=== PATIENT | female | born 1975 | race Caucasian/White ===

== ENCOUNTER → 2016-05-13 | Outpatient (CLI) | payer OTHER, BC ==
[~2016-05-13] MED LIST: ALBU1AER9 INH; FEXO1TAB46 PO; HYDR-389 PO; HYDR-5688 PO; LEVO200T PO; LITH600C PO; MONT1TAB3 PO; MTR600X PO; NORE5TAB5 PO; OXYC-57 PO; PRM625 PO; SYN175 PO; VNTHFA/IN INH
--- NOTE | 2016-05-13 12:33 | DIAGNOSTIC IMAGING REPORT ---
TWO VIEW CHEST CLINICAL HISTORY: Cough. FINDINGS: PA and lateral chest radiographs are compared to study dated 01/20/2016 and correlated with chest CT dated 03/07/2016. The examination is degraded by large body habitus. The cardiomediastinal silhouette is unremarkable. There is mild chronic elevation of the right hemidiaphragm. The lungs and pleural spaces are clear. There is no pneumothorax. The skeletal structures appear osteopenic. The bony thorax appears intact. Cholecystectomy clips are identified in the right upper quadrant. IMPRESSION: No active disease in the chest. Electronically signed by: Manan Sow M.D. 05/13/2016 12:32 PM Dictated Date/Time: 05/13/2016 12:31 PM
== END | disposition home or self-care (01) ==
LOC: C.RAD1850 12:00
PROVIDERS: ATTEND Family Medicine
DX: R05 Cough (principal)

== ENCOUNTER → 2016-05-31 | Outpatient (CLI) | payer OTHER, BC ==
[2016-05-31 15:56] LABS: THYROID STIMULATING HORMONE 0.058 uIu/ml (0.300-4.500)
== END | disposition home or self-care (01) ==
LOC: C.LAB 14:46
PROVIDERS: ATTEND Urology
DX: Z79.899 Other long term (current) drug therapy (principal); Z51.81 Encounter for therapeutic drug level monitoring

== ENCOUNTER → 2016-07-04 | Outpatient (CLI) | payer OTHER, BC ==
--- NOTE | 2016-07-04 12:23 | DIAGNOSTIC IMAGING REPORT ---
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 DISCUSSION: The bones and joint spaces appear intact. There is no evidence of fracture, dislocation or bony disease. There is no evidence for soft tissue swelling. IMPRESSION: Negative study. Electronically signed by: New Perales M.D. 07/04/2016 12:22 PM Dictated Date/Time: 07/04/2016 12:21 PM
== END | disposition home or self-care (01) ==
LOC: C.RAD1850 11:46
PROVIDERS: ATTEND Internal Medicine
DX: M25.562 Pain in left knee (principal)

== ENCOUNTER → 2016-07-08 | Outpatient (CLI) | payer OTHER, BC ==
--- NOTE | 2016-07-08 14:50 | DIAGNOSTIC IMAGING REPORT ---
ULTRASOUND LEFT POPLITEAL FOSSA CLINICAL HISTORY: Left knee pain. COMPARISON STUDY: Radiographs of the left knee dated 07/04/2016. FINDINGS: Real-time, grayscale, and color Doppler sonography of the left popliteal fossa is performed to assess for the presence of a popliteal cyst. No popliteal cyst is identified. No fluid collection is seen. IMPRESSION: There is no sonographic evidence of popliteal cyst as clinically queried. Electronically signed by: Manan Sow M.D. 07/08/2016 2:48 PM Dictated Date/Time: 07/08/2016 2:47 PM
== END | disposition home or self-care (01) ==
LOC: C.ULTRBC 13:52
PROVIDERS: ATTEND Internal Medicine
DX: M25.562 Pain in left knee (principal)

== ENCOUNTER → 2016-08-15 | Outpatient (CLI) | payer OTHER, BC ==
--- NOTE | 2016-08-15 10:00 | DIAGNOSTIC IMAGING REPORT ---
CT OF THE CHEST WITHOUT IV CONTRAST CLINICAL HISTORY: R91.1 Pulmonary nodule COMPARISON STUDY: 03/07/2016 CT DOSE: 776.59 mGycm TECHNIQUE: CT of the thorax was performed from the thoracic inlet to the lung bases. Images are reviewed in the axial, sagittal, and coronal planes. IV contrast was not administered for this examination. FINDINGS: Thyroid: Imaged portions of the thyroid gland are normal in appearance. Thoracic aorta: The thoracic aorta is normal in course and caliber, noting standard 3 vessel arch anatomy. Heart: The heart is normal in size and configuration, without pericardial effusion. Lungs and pleural spaces: No pleural effusions are visualized. There is a pure groundglass 7 mm left upper lobe pulmonary nodule. Mediastinum: There is no pathologic adenopathy by size criteria. Yocasta: There is no pathologic adenopathy given the limitations of a noncontrast study Axilla: Clear. Upper abdomen: Partially visualized upper abdominal viscera is within normal limits. Skeletal structures: There are no lytic or blastic osseous lesions. IMPRESSION: 1. Stable 7 mm groundglass left upper lobe pulmonary nodule. Two-year follow-up is recommended per Fleischner criteria. Please see below. Please refer to below summary of Fleischner criteria recommendations for follow-up of incidental CT nodules (Courtney Sherman, Guidelines for management of small pulmonary nodules detected on CT scans: A statement from the Fleischner Society, Radiology 237: [phone].) SOLID NODULES Solitary nodule size: <6 mm * low risk patients: no follow-up needed * high risk patients: optional CT at 12 months Solitary nodule size: 6-8 mm * low risk patients: follow-up at 6-12 months, then consider further follow-up at 18-24 months * high risk patients: initial follow-up CT at 6-12 months and then at 18-24 months if no change Solitary nodule size: >8 mm * either low or high risk patients - consider follow-up CT at 3 months, and/or CT-PET, and/or biopsy Multiple nodules size: <6 mm * low risk patients: no routine follow-up * high risk patients: optional CT at 12 months Multiple nodules size: 6-8 mm * low risk patients: follow-up at 3-6 months, then consider further follow-up at 18-24 months * high risk patients: follow-up at 3-6 months, then at 18-24 months if no change Multiple nodules size: >8 mm * low risk patients: follow-up at 3-6 months, then consider further follow-up at 18-24 months * high risk patients: follow-up at 3-6 months, then at 18-24 months if no change Note: newly detected indeterminate nodule in persons 35 years of age or older. * low risk patients: minimal or absent history of smoking and/or other known risk factors * high risk patients: history of smoking or of other known risk factors (e.g. first degree relative with lung cancer, or exposure to asbestos, radon, uranium) * if a nodule up to 8 mm is partly solid or is ground glass further follow-up is required after 24 months to exclude possible slow growing adenocarcinoma (JADA) SUBSOLID NODULES Solitary pure ground-glass nodule * nodule size <6 mm - no CT follow-up required * nodule size >=6 mm - follow-up CT at 6-12 months, then every 2 years until 5 years Solitary part-solid nodule * nodule size <6 mm - no CT follow-up required * nodule size >=6 mm - follow-up CT at 3-6 months. If unchanged, and solid component remains <6 mm, then annual follow-up for 5 years Multiple subsolid nodules * nodule size <6 mm - follow-up CT at 3-6 months, consider further follow-up at 2 and 4 years if stable * nodule size >=6 mm - follow-up CT at 3-6 months, subsequent management based on the most suspicious nodule(s) Electronically signed by: Fabrice Renteria M.D. 08/15/2016 9:59 AM Dictated Date/Time: 08/15/2016 9:54 AM
== END | disposition home or self-care (01) ==
LOC: C.CTS 09:42
PROVIDERS: ATTEND Internal Medicine
DX: R91.1 Solitary pulmonary nodule (principal)

== ENCOUNTER 2016-08-29 10:28 | Emergency (ER) | payer OTHER, BC ==
[~2016-08-29] VITALS: Ht 157.5 cm; Wt 94.8 kg
[~2016-08-29 10:28] MED LIST changes: -HYDR-389 PO; -HYDR-5688 PO; -LEVO200T PO; -LITH600C PO; -MTR600X PO; -NORE5TAB5 PO; -OXYC-57 PO; -PRM625 PO; -SYN175 PO; -VNTHFA/IN INH
[2016-08-29 10:34] VITALS: TEMP 36.8; Ht 157.5 cm; Wt 94.8 kg
[2016-08-29] MEDS ORDERED: LITH600C PO (10:40)
[2016-08-29] MEDS ORDERED: VNTHFA/IN INH (10:40)
[2016-08-29] MEDS ORDERED: SYN175 PO (10:41)
[2016-08-29] MEDS ORDERED: SODIUM CHLORIDE 0.9% 1000ML 1,000 ML IV STA (11:10)
[2016-08-29 11:48] LABS: BASO % 0.3 %; BASO ABS # 0.03 K/uL (0-0.2); COMPLETE YES; EOS % 3.7 %; HEMATOCRIT 42.4 % (37-47); IG% 0.3 %; LYMPH % 20.7 %; LYMPH ABS # 2.12 K/uL (1.2-3.4); MEAN CELL VOLUME 88.9 fL (80-100); MEAN CORPUSCULAR HEMOGLOBIN 28.3 pg (25-34); MEAN CORPUSCULAR HGB CONC 31.8 g/dl (32-36); MEAN PLATELET VOLUME 12.1 fL (7.4-10.4); MONO % 5.3 %; NEUT % 69.7 %; PLATELET COUNT 206 K/uL (130-400); RED BLOOD COUNT 4.77 M/uL (4.2-5.4); WHITE BLOOD COUNT 10.23 K/uL (4.8-10.8)
[2016-08-29] MEDS ORDERED: LEVO200T PO (12:05)
[2016-08-29 12:07] LABS: BUN/CREATININE RATIO 14.8 (10-20); CREATININE 0.86 mg/dl (0.60-1.20); POTASSIUM 3.9 mmol/L (3.5-5.1)
[2016-08-29 12:10] LABS: ALB/GLOB RATIO 1.4 (0.9-2)
[2016-08-29 12:59] LABS: URINE APPEARANCE CLEAR (CLEAR); URINE BILIRUBIN NEG (NEG); URINE EPITHELIAL CELL AUTO 20-30 /lpf (0-5); URINE NITRITE NEG (NEG); URINE SPECIFIC GRAVITY 1.014 (1.000-1.030); UROBILINOGEN NEG (NEG); ZZUR CULT IF INDIC CLEAN CATCH NO
[2016-08-29 13:00] LABS: MANUAL MICROSCOPIC REQUIRED? NO; REVIEW REQ? NO; URINE COLOR DK YELLOW
[2016-08-29 13:16] LABS: CALCIUM 9.9 mg/dl (8.5-10.1)
--- NOTE | 2016-08-29 13:18 | DIAGNOSTIC IMAGING REPORT ---
EXAMINATION: PELVIC ULTRASOUND (transabdominal and endovaginal scanning) CLINICAL HISTORY: heavy vaginal bleeding, pelvic pain COMPARISON STUDY: 07/23/2015 FINDINGS: The uterus measured 4.5 x 4.8 x 6.6 cm.. The endometrial stripe measured 11 mm. There is a small amount of blood/fluid within the lower uterine segment.. The right ovary measured 33 x 21 x 20 mm.. The left ovary measured not visualized. There was no evidence of pathologic free pelvic fluid. IMPRESSION: 1. Small amount of fluid/blood within the lower uterine segment. 11 mm endometrial stripe 2. Nonvisualization of the left ovary Electronically signed by: Fabrice Renteria M.D. 08/29/2016 1:17 PM Dictated Date/Time: 08/29/2016 1:15 PM
[2016-08-29 13:59] LABS: PREG INTERNAL NEGATIVE QC NEG CLEAR BACKGROUND; PREG INTERNAL POSITIVE QC POS CONTROL LINE
[2016-08-29] MEDS ORDERED: PRM625 PO (14:36)
--- NOTE | 2016-08-29 14:38 | EMERGENCY ROOM VISIT NOTE ---
History First contact with patient: 11:01 Chief Complaint: ED VAG BLEEDING Stated Complaint: BLEEDING History of Present Illness The patient is a 41 year old female who presents to the Emergency Room with complaints of heavy vaginal bleeding. The patient states that she has had vaginal bleeding for the past 3 weeks. She reports that she has been on the Depo-Provera shot for the past 9 months. Throughout that time, she has had very little bleeding, just prior to getting the injection each time. She states that one week prior to her most recent injection, she began to have some slight vaginal bleeding. She received her last injection on 08/11/16 and states she has had persistent bleeding since then. She states the bleeding has become heavy over the past 3 days and she has been using more pads pain usual. She has gone through 2 pads in the 2 hours that she has been awake today. She is a smoker and states that that is the reason she is not on oral control pills. She also complains of some pelvic cramping which radiates into the back. She rates her current discomfort a 4/10. She denies any fevers, nausea/ vomiting, urinary symptoms or changes in bowel movements. She denies any COMMUNITY SERVICE OFFICER COORDINATOR history. She denies any history or family history of bleeding or clotting disorders. Review of Systems A complete 10 point review of systems was reviewed with the patient with pertinent positives and negatives as per history of present illness. All else were negative. Past Medical/Surgical History Medical Problems: (1) Bilateral tubal ligation (2) Bipolar disorder (3) section (4) History of - tubal ligation (5) Hypothyroidism (6) Tonsillectomy Surgical Problems: (1) H/O lumbar discectomy (2) S/P cholecystectomy (3) S/P tonsillectomy Family History FH: lung cancer FHx: cancer FHx: heart disease Hypertension Social History Smoking Status: Current Every Day Smoker Alcohol Use: none Drug Use: none Marital Status: Housing Status: lives with family Occupation Status: employed Current/Historical Medications Scheduled Albuterol Hfa (Ventolin Hfa), 2-4 PUFFS INH Q6H Estrogens, Conjugated (Premarin), 1 TAB PO DAILY Fexofenadine Hcl (Destiney), 180 MG PO DAILY Levothyroxine Sodium (Synthroid), 175 MCG PO DAILY [place]ale Carbonate (Rosedale Carbonate), 600 MG PO DAILY Montelukast Sodium (Singulair), 10 MG PO DAILY Allergies Coded Allergies: Penicillins (Verified Allergy, Mild, HIVES, 08/29/16) Physical Exam Vital Signs Date Time Temp Pulse Resp B/P Pulse Ox O2 Delivery O2 Flow Rate FiO2 08/29/16 15:03 78 18 130/82 98 08/29/16 14:01 78 18 130/82 98 Room Air 08/29/16 10:34 36.8 69 18 128/76 99 Room Air Pain Rating (0-10): 2.0 Physical Exam VITALS: Vitals are noted on the nurse's note and reviewed by myself. Vital signs stable. GENERAL: This is a 41-year-old female, in no acute distress, nondiaphoretic, well-developed well-nourished. SKIN: Capillary reflex less than 2 seconds. HEENT: Normocephalic. PERRLA. EOMI. Nares patent. Mucous membranes moist. Neck is supple without nuchal rigidity. HEART: Regular rate and rhythm without murmurs gallops or rubs. LUNGS: Clear to auscultation bilaterally without wheezes, rales or rhonchi. ABDOMEN: Positive bowel sounds x 4. Soft, minimal tenderness of the suprapubic region. No guarding or rebound tenderness. PELVIC: External genitalia unremarkable. There is a moderate amount of blood in the vaginal vault with a clot present. There is no active bleeding from the cervical os. NEURO: Patient was alert and oriented to person place and time. Medical Decision & Procedures ER Provider Diagnostic Interpretation: EXAMINATION: PELVIC ULTRASOUND (transabdominal and endovaginal scanning) CLINICAL HISTORY: heavy vaginal bleeding, pelvic pain COMPARISON STUDY: 07/23/2015 FINDINGS: The uterus measured 4.5 x 4.8 x 6.6 cm.. The endometrial stripe measured 11 mm. There is a small amount of blood/fluid within the lower uterine segment.. The right ovary measured 33 x 21 x 20 mm.. The left ovary measured not visualized. There was no evidence of pathologic free pelvic fluid. IMPRESSION: 1. Small amount of fluid/blood within the lower uterine segment. 11 mm endometrial stripe 2. Nonvisualization of the left ovary Laboratory Results 08/29/16 11:30 Red Blood Count 4.77, Mean Corpuscular Volume 88.9, Mean Corpuscular Hemoglobin 28.3, Mean Corpuscular Hemoglobin Concent 31.8, Mean Platelet Volume 12.1, Neutrophils (%) (Auto) 69.7, Lymphocytes (%) (Auto) 20.7, Monocytes (%) (Auto) 5.3, Eosinophils (%) (Auto) 3.7, Basophils (%) (Auto) 0.3, Neutrophils # (Auto) 7.13, Lymphocytes # (Auto) 2.12, Monocytes # (Auto) 0.54, Eosinophils # (Auto) 0.38, Basophils # (Auto) 0.03 08/29/16 11:30 Test 08/29/16 11:10 08/29/16 11:30 08/29/16 12:35 Urine Test NEG (NEG) White Blood Count 10.23 K/uL (4.8-10.8) Red Blood Count 4.77 M/uL (4.2-5.4) Hemoglobin 13.5 g/dL (12.0-16.0) Hematocrit 42.4 % (37-47) Mean Corpuscular Volume 88.9 fL (80-100) Mean Corpuscular Hemoglobin 28.3 pg (25-34) Mean Corpuscular Hemoglobin Concent 31.8 g/dl (32-36) Platelet Count 206 K/uL (130-400) Mean Platelet Volume 12.1 fL (7.4-10.4) Neutrophils (%) (Auto) 69.7 % Lymphocytes (%) (Auto) 20.7 % Monocytes (%) (Auto) 5.3 % Eosinophils (%) (Auto) 3.7 % Basophils (%) (Auto) 0.3 % Neutrophils # (Auto) 7.13 K/uL (1.4-6.5) Lymphocytes # (Auto) 2.12 K/uL (1.2-3.4) Monocytes # (Auto) 0.54 K/uL (0.11-0.59) Eosinophils # (Auto) 0.38 K/uL (0-0.5) Basophils # (Auto) 0.03 K/uL (0-0.2) RDW Standard Deviation 47.4 fL (36.4-46.3) RDW Coefficient of Variation 14.6 % (11.5-14.5) Immature Granulocyte % (Auto) 0.3 % Immature Granulocyte # (Auto) 0.03 K/uL (0.00-0.02) Anion Gap 6.0 mmol/L (3-11) Est Creatinine Clear Calc Drug Dose 92.4 ml/min Estimated GFR () 97.3 Estimated GFR (Non- 83.9 BUN/Creatinine Ratio 14.8 (10-20) Calcium Level 9.9 mg/dl (8.5-10.1) Total Bilirubin 0.5 mg/dl (0.2-1) Aspartate Amino Transf (AST/SGOT) 12 U/L (15-37) Alanine Aminotransferase (ALT/SGPT) 25 U/L (12-78) Alkaline Phosphatase 63 U/L (45-117) Total Protein 7.2 gm/dl (6.4-8.2) Albumin 4.2 gm/dl (3.4-5.0) Globulin 3.0 gm/dl (2.5-4.0) Albumin/Globulin Ratio 1.4 (0.9-2) Urine Color DK YELLOW Urine Appearance CLEAR (CLEAR) Urine pH 6.0 (4.5-7.5) Urine Specific [place] 1.014 (1.000-1.030) Urine Protein NEG (NEG) Urine Glucose (UA) NEG (NEG) Urine Ketones NEG (NEG) Urine Occult Blood 3+ (NEG) Urine Nitrite NEG (NEG) Urine Bilirubin NEG (NEG) Urine Urobilinogen NEG (NEG) Urine Leukocyte Esterase TRACE (NEG) Urine WBC (Auto) 1-5 /hpf (0-5) Urine RBC (Auto) >30 /hpf (0-4) Urine Hyaline Casts (Auto) 1-5 /lpf (0-5) Urine Epithelial Cells (Auto) 20-30 /lpf (0-5) Urine Bacteria (Auto) NEG (NEG) Medications Administered Medications (Trade) Dose Ordered Sig/Rafael Route Start Time Stop Time Status Last Admin Dose Admin Sodium Chloride (Nss 1000ml) 1,000 ml @ 999 mls/hr Q1H1M STAT IV 08/29/16 11:10 08/29/16 12:10 DC 08/29/16 11:42 999 MLS/HR ED Course The patient was evaluated as above. Labs were drawn and IV access was obtained. Patient was medicated with 1 L normal saline solution. Pelvic ultrasound was performed and read by radiology as above. Patient was reevaluated and findings were discussed. Pelvic exam was performed at this time. Case was discussed with Dr. Pérez, [facility] PIGGYBACK CLERK. She recommended placing the patient on Premarin. Discharge instructions were reviewed with the patient. The patient verbalized understanding of my assessment and treatment plan and was discharged home in good condition. Medical Decision Differential diagnosis includes anemia, abnormal uterine bleeding, structural abnormality, ectopic , bleeding dyscrasia, among others. The patient is a 41-year-old female who presents today complaining of heavy vaginal bleeding. Labs revealed no anemia or leukocytosis. Urinalysis was not suggestive of infection. Urine was negative. Pelvic ultrasound did reveal an endometrial stripe of 11 mm but was otherwise unremarkable. Pelvic exam showed blood within the vaginal vault. Case was discussed with the on- call provider for PIGGYBACK CLERK, Dr. Pérez. She recommended placing the patient on a 3 week course of low-dose Premarin and having the patient follow-up in the office in 6 weeks. The patient was informed that there is a small risk of developing a blood clot while taking this medication, especially given her daily smoking. She was given DVT precautions and will return here if she develops any of these symptoms. Based on the patient's presentation and work up, I feel the patient is stable for outpatient treatment. The patient was educated to return to the emergency department for any worsening of their current condition or new/concerning symptoms. She will follow up with PIGGYBACK CLERK in 6 weeks and her primary care provider. Impression Primary Impression: Abnormal uterine bleeding Departure Information Dispostion Home / Self-Care Condition GOOD Prescriptions Estrogens, Conjugated (Premarin) 0.625 Mg Tab 1 TAB PO DAILY for 21 Days, #21 TAB Prov: Jessica Tucker PA-C 08/29/16 Referrals Pro,Toribio Goldstein M.D. (PCP) [facility] Additional Instructions You have been prescribed Premarin, 1 tablet daily for the next 3 weeks. This showed a slow your vaginal bleeding, but may not stop it. When he finished this medication, you will likely have vaginal bleeding for 7-10 days, then your bleeding should stop. There is a risk of blood clots while on this medication. If you develop pain/ swelling in your leg, chest pain, or shortness of breath, you should return to the emergency Department immediately. Call [facility] PIGGYBACK CLERK to schedule a follow-up appointment in 6 weeks. Return to the emergency room with any worsening or new/concerning symptoms.
[2016-08-29 15:03] VITALS: BP 130/82; PULSE 78; O2SAT 98
[2016-12-14] MEDS ORDERED: NORE5TAB5 PO (13:53)
[2017-01-02] MEDS ORDERED: MTR600X PO (10:12)
[2017-01-02] MEDS ORDERED: OXYC-57 PO (10:12)
[2017-01-02] MEDS ORDERED: HYDR-5688 PO (17:37)
== END 2016-08-29 14:55 | disposition home or self-care (01) ==
LOC: C.EDB 10:30 → C.EDA 14:55
DX: N93.9 Abnormal uterine and vaginal bleeding, unspecified (principal); E03.9 Hypothyroidism, unspecified; F31.9 Bipolar disorder, unspecified; Z79.899 Other long term (current) drug therapy; Z82.49 Family history of ischemic heart disease and other diseases of the circulatory system; Z83.6 Family history of other diseases of the respiratory system; F17.200 Nicotine dependence, unspecified, uncomplicated

== ENCOUNTER → 2016-10-19 | Outpatient (CLI) | payer BC, OTHER ==
[~2016-10-19] MED LIST changes: -ALBU1AER9 INH; +HYDR-389 PO; +HYDR-5688 PO; +LITH600C PO; +MTR600X PO; +NORE5TAB5 PO; +OXYC-57 PO; +SYN175 PO; +VNTHFA/IN INH
== END | disposition home or self-care (01) ==
LOC: C.PATHSPEC 17:54
PROVIDERS: ATTEND Obstetrics & Gynecology
DX: N93.9 Abnormal uterine and vaginal bleeding, unspecified (principal)

== ENCOUNTER → 2016-10-19 | Outpatient (CLI) | payer BC, OTHER | END | disposition home or self-care (01) | LOC: C.PAPS 10:35 | PROVIDERS: ATTEND Obstetrics & Gynecology | DX: N93.9 Abnormal uterine and vaginal bleeding, unspecified (principal) ==

== ENCOUNTER 2016-12-07 10:18 | Emergency (ER) | payer BC ==
[~2016-12-07] VITALS: Ht 157.5 cm; Wt 113.9 kg
[~2016-12-07 10:18] MED LIST changes: -HYDR-389 PO; -HYDR-5688 PO; -MTR600X PO; -NORE5TAB5 PO; -OXYC-57 PO
[2016-12-07 10:21] VITALS: TEMP 36.7; Ht 157.5 cm; Wt 113.9 kg
[2016-12-07] MEDS ORDERED: HYDR-389 PO (10:55)
[2016-12-07] MEDS ORDERED: ONDANSETRON INJ 2 MG/ML 2 ML VIAL IV STA (11:01)
[2016-12-07] MEDS ORDERED: SODIUM CHLORIDE 0.9% 1000ML 1,000 ML IV STA (11:01)
[2016-12-07 11:10] LABS: BASO % 0.3 %; BASO ABS # 0.04 K/uL (0-0.2); COMPLETE YES; EOS % 4.5 %; HEMATOCRIT 37.5 % (37-47); IG% 0.6 %; LYMPH ABS # 2.69 K/uL (1.2-3.4); MEAN CELL VOLUME 87.4 fL (80-100); MEAN CORPUSCULAR HEMOGLOBIN 29.1 pg (25-34); MEAN CORPUSCULAR HGB CONC 33.3 g/dl (32-36); MEAN PLATELET VOLUME 11.4 fL (7.4-10.4); MONO % 5.3 %; NEUT % 67.3 %; PLATELET COUNT 224 K/uL (130-400); RED BLOOD COUNT 4.29 M/uL (4.2-5.4); WHITE BLOOD COUNT 12.25 K/uL (4.8-10.8)
[2016-12-07 11:31] LABS: ALT/SGPT 21 U/L (12-78); BLOOD UREA NITROGEN 8 mg/dl (7-18); BUN/CREATININE RATIO 9.2 (10-20); CALCIUM 9.4 mg/dl (8.5-10.1); CARBON DIOXIDE 25 mmol/L (21-32); CHLORIDE 110 mmol/L (98-107); CREATININE 0.83 mg/dl (0.60-1.20); GLUCOSE 105 mg/dl (70-99); SODIUM 139 mmol/L (136-145)
[2016-12-07 11:34] LABS: ALKALINE PHOSPHATASE 71 U/L (45-117); AST/SGOT 13 U/L (15-37)
[2016-12-07 12:10] LABS: URINE APPEARANCE CLEAR (CLEAR); URINE BILIRUBIN NEG (NEG); URINE COLOR YELLOW; URINE NITRITE NEG (NEG); URINE PH 5.5 (4.5-7.5); URINE SPECIFIC GRAVITY 1.012 (1.000-1.030); UROBILINOGEN NEG (NEG); ZZUR CULT IF INDIC CLEAN CATCH NO
[2016-12-07 12:17] LABS: MANUAL MICROSCOPIC REQUIRED? NO; REVIEW REQ? NO
--- NOTE | 2016-12-07 12:59 | EMERGENCY ROOM VISIT NOTE ---
History Report prepared by Jesse: Sherrie Pineda Under the Supervision of: Dr. Hayes Darby D.O. First contact with patient: 10:47 Chief Complaint: ED VAG BLEEDING Stated Complaint: HEAVY BLEEDING History of Present Illness The patient is a 41 year old female who presents to the Emergency Room with complaints of constant vaginal bleeding for the past 4 months that became worse today. She states that she is passing golf ball-sized clots today. Standing up causes her bleeding to intensify. Typically she has been going through one pad every 3-4 hours, but today she is changing her pad every other hour. The patient states that today she is feeling lightheaded and dizzy. She called her ob-sprayer hand office and was advised to come to the ED for further evaluation. She was last seen in their office at the end of October. She has a hysterectomy scheduled for 01/02/2017. The patient denies any chance of . Patient has no other complaints at this time including chest pain, shortness breath, nausea vomiting or diarrhea. Source of History: patient Onset: 4 months ago Position: other (vagina) Symptom Intensity: moderate Quality: other (bleeding) Timing: worsening Modifying Factors (Worsening): other (standing up) Associated Symptoms: + nausea Note: Pt is lightheaded and dizzy. Review of Systems See HPI for pertinent positives & negatives. A total of 10 systems reviewed and were otherwise negative. Past Medical & Surgical Medical Problems: (1) Bilateral tubal ligation (2) Bipolar disorder (3) section (4) History of - tubal ligation (5) Hypothyroidism (6) Tonsillectomy Surgical Problems: (1) H/O lumbar discectomy (2) S/P cholecystectomy (3) S/P tonsillectomy Family History FH: lung cancer FHx: cancer FHx: heart disease Hypertension Social History Smoking Status: Current Every Day Smoker Alcohol Use: none Drug Use: none Marital Status: Housing Status: lives with family Occupation Status: employed Current/Historical Medications Scheduled Albuterol Hfa (Ventolin Hfa), 2-4 PUFFS INH Q6H Fexofenadine Hcl (Destiney), 180 MG PO DAILY Levothyroxine Sodium (Synthroid), 175 MCG PO DAILY Sneads Carbonate (Sneads Carbonate), 600 MG PO BID Montelukast Sodium (Singulair), 10 MG PO DAILY Scheduled PRN Hydroxyzine Hcl (Atarax), 10 MG PO QID PRN for Anxiety and/or Sedation Allergies Coded Allergies: Penicillins (Verified Allergy, Mild, HIVES, 12/07/16) Physical Exam Vital Signs Date Time Temp Pulse Resp B/P (MAP) Pulse Ox O2 Delivery O2 Flow Rate FiO2 12/07/16 11:41 93 18 117/102 97 Room Air 12/07/16 10:21 36.7 83 18 164/108 96 Room Air Physical Exam GENERAL: alert, sitting up in bed, disheveled appearing, well nourished, no distress, non-toxic EYE EXAM: normal conjunctiva OROPHARYNX: no exudate, no erythema, lips, buccal mucosa, and tongue normal and mucous membranes are moist NECK: supple, no nuchal rigidity, no adenopathy, non-tender LUNGS: Clear to auscultation. Normal chest wall mechanics HEART: no murmurs, S1 normal and S2 normal ABDOMEN: abdomen soft, non-tender, normo-active bowel sounds, no masses, no rebound or guarding. BACK: Back is symmetrical on inspection and there is no deformity, no midline tenderness, no CVA tenderness. : Normal external genitalia, small amount of blood in the vaginal vault, unable to visual cervix. SKIN: no rashes and no bruising UPPER EXTREMITIES: upper extremities are grossly normal. LOWER EXTREMITIES: No pitting edema. NEURO EXAM: Normal sensorium, cranial nerves II-XII grossly intact, normal speech, no gross weakness of arms, no gross weakness of legs. Medical Decision & Procedures ER Provider Diagnostic Interpretation: Pelvic US reviewed from 08/29/2016 showed a large endometrial stripe. Laboratory Results 12/07/16 10:50 Red Blood Count 4.29, Mean Corpuscular Volume 87.4, Mean Corpuscular Hemoglobin 29.1, Mean Corpuscular Hemoglobin Concent 33.3, Mean Platelet Volume 11.4, Neutrophils (%) (Auto) 67.3, Lymphocytes (%) (Auto) 22.0, Monocytes (%) (Auto) 5.3, Eosinophils (%) (Auto) 4.5, Basophils (%) (Auto) 0.3, Neutrophils # (Auto) 8.25, Lymphocytes # (Auto) 2.69, Monocytes # (Auto) 0.65, Eosinophils # (Auto) 0.55, Basophils # (Auto) 0.04 8/23/17 10:50 Test 12/07/16 10:50 12/07/16 11:01 12/07/16 11:18 White Blood Count 12.25 K/uL (4.8-10.8) Red Blood Count 4.29 M/uL (4.2-5.4) Hemoglobin 12.5 g/dL (12.0-16.0) Hematocrit 37.5 % (37-47) Mean Corpuscular Volume 87.4 fL (80-100) Mean Corpuscular Hemoglobin 29.1 pg (25-34) Mean Corpuscular Hemoglobin Concent 33.3 g/dl (32-36) Platelet Count 224 K/uL (130-400) Mean Platelet Volume 11.4 fL (7.4-10.4) Neutrophils (%) (Auto) 67.3 % Lymphocytes (%) (Auto) 22.0 % Monocytes (%) (Auto) 5.3 % Eosinophils (%) (Auto) 4.5 % Basophils (%) (Auto) 0.3 % Neutrophils # (Auto) 8.25 K/uL (1.4-6.5) Lymphocytes # (Auto) 2.69 K/uL (1.2-3.4) Monocytes # (Auto) 0.65 K/uL (0.11-0.59) Eosinophils # (Auto) 0.55 K/uL (0-0.5) Basophils # (Auto) 0.04 K/uL (0-0.2) RDW Standard Deviation 44.8 fL (36.4-46.3) RDW Coefficient of Variation 14.0 % (11.5-14.5) Immature Granulocyte % (Auto) 0.6 % Immature Granulocyte # (Auto) 0.07 K/uL (0.00-0.02) Anion Gap 4.0 mmol/L (3-11) Est Creatinine Clear Calc Drug Dose 106.5 ml/min Estimated GFR () 101.5 Estimated GFR (Non- 87.6 BUN/Creatinine Ratio 9.2 (10-20) Calcium Level 9.4 mg/dl (8.5-10.1) Total Bilirubin 0.2 mg/dl (0.2-1) Direct Bilirubin < 0.1 mg/dl (0-0.2) Aspartate Amino Transf (AST/SGOT) 13 U/L (15-37) Alanine Aminotransferase (ALT/SGPT) 21 U/L (12-78) Alkaline Phosphatase 71 U/L (45-117) Total Protein 6.9 gm/dl (6.4-8.2) Albumin 3.6 gm/dl (3.4-5.0) Lipase 123 U/L (73-393) Urine Test NEG (NEG) Urine Color YELLOW Urine Appearance CLEAR (CLEAR) Urine pH 5.5 (4.5-7.5) Urine Specific [place] 1.012 (1.000-1.030) Urine Protein NEG (NEG) Urine Glucose (UA) NEG (NEG) Urine Ketones NEG (NEG) Urine Occult Blood 3+ (NEG) Urine Nitrite NEG (NEG) Urine Bilirubin NEG (NEG) Urine Urobilinogen NEG (NEG) Urine Leukocyte Esterase TRACE (NEG) Urine WBC (Auto) 1-5 /hpf (0-5) Urine RBC (Auto) 5-10 /hpf (0-4) Urine Hyaline Casts (Auto) 0 /lpf (0-5) Urine Epithelial Cells (Auto) 10-20 /lpf (0-5) Urine Bacteria (Auto) NEG (NEG) Laboratory results per my review. Medications Administered Medications (Trade) Dose Ordered Sig/Rafael Route Start Time Stop Time Status Last Admin Dose Admin Sodium Chloride 1,000 ml @ 999 mls/hr Q1H1M STAT IV 12/07/16 11:01 12/07/16 12:20 DC 12/07/16 12:00 999 MLS/HR Ondansetron HCl (Zofran Inj) 4 mg NOW STAT IV 12/07/16 11:01 12/07/16 11:02 DC 12/07/16 12:01 4 MG ED Course ED COURSE: Vital signs were reviewed and showed hypertension. The patients medical record was reviewed The above diagnostic studies were performed and reviewed. ED treatments and interventions as stated above. 1047: The patient was evaluated in room B6. A complete history and physical examination was performed. 1101: Zofran 4 mg IV, NSS 1000 ml @ 999 mls/hr IV 1131: At this time I performed a pelvic examination. Please see the physical examination for my findings. 1220: I spoke with Dr. Monroy of ob-sprayer hand. We discussed the patient's case. She agrees with the treatment plan and recommends follow-up as an outpatient. 1223: Upon reevaluation, the patient is feeling better. I discussed my findings with the patient and she understands and agrees with the treatment plan. Based on the patients age, coexisting illnesses, exam and lab findings the decision to treat as an outpatient was made. The patient remained stable while under my care. The patient appeared well at the time of discharge. Medical Decision Differential diagnoses includes but is not limited to gastritis, peptic ulcer disease, GERD, gallbladder disease, pancreatitis, small bowel obstruction, acute coronary syndrome, pericarditis, ischemic bowel, irritable bowel disease, irritable bowel syndrome, appendicitis, diverticulitis, malignancy, hernia, urinary tract infection, torsion, /ectopic , perforation, trauma, infectious. Patient is a 41-year-old female who presents the ER for vaginal bleeding which has been present for the past 4 months. She is currently following with [facility] gynecology and has a hysterectomy scheduled for early December. Patient has no other complaints at this time. She notes that she is going through a pad every other hour. On exam she has scant vaginal bleeding which was cleared with 2 Q-tips. Unable to visualize cervix. She has of saline no pain on exam. CBC shows a mild leukocytosis of 12,000. Hemoglobin stable at 12.5. BMP along with bilirubin, LFTs and lipase was unremarkable. UA shows blood which I favor secondary to vaginal bleeding. No other signs of infection. was negative. Patient declined pelvic ultrasound. Discussed case with Dr. Monroy and she agreed with the treatment plan and will follow the patient up in the office and possibly as prescribed and progesterone if she has already had a previous biopsy. Patient is unable to recall her surgeon at this time. Discussed with Pt concerning signs and symptoms to watch out for. Pt was instructed to follow up with their PCP and discussed with the patient their option to return to the ED at anytime for persistent or worsening symptoms. The appropriate anticipatory guidance and out-patient management, including indications for return to the emergency department, were explained at length to the patient and understood. Medication Reconcilliation Current Medication List: was personally reviewed by me Blood Pressure Screening Patient's blood pressure: Elevated blood pressure Blood pressure disposition: Elevated BP felt to be situational Consults Time Called: 1215 Consulting Physician: Dr. Monroy Returned Call: [address] Monroy of ob-sprayer hand. We discussed the patient's case. She agrees with the treatment plan and recommends follow-up as an outpatient. Impression Primary Impression: Dysfunctional uterine bleeding Scribe Attestation The scribe's documentation has been prepared under my direction and personally reviewed by me in its entirety. I confirm that the note above accurately reflects all work, treatment, procedures, and medical decision making performed by me. Departure Information Dispostion Home / Self-Care Referrals Toribio Warner M.D. (PCP) Forms HOME CARE DOCUMENTATION FORM, IMPORTANT VISIT INFORMATION, WORK / SCHOOL INSTRUCTIONS Patient Instructions ED Bleed Irregular Vaginal, My [facility] Additional Instructions Please follow up with your primary care doctor or if you are a student, [facility] with in the next 24 hours. Any worsening of your symptoms, please return to the ED immediately. This includes any fevers greater than 100.4, worsening pain, worsening bleeding, going through more the 1 pad an hour, new vaginal discharge, persistent nausea, vomiting, unable to eat or drink , or any other concerning signs or symptoms from your standpoint.
[2016-12-07 13:01] VITALS: BP 116/78; PULSE 81; O2SAT 98
[2016-12-14] MEDS ORDERED: NORE5TAB5 PO (13:53)
[2017-01-02] MEDS ORDERED: OXYC-57 PO (10:12)
[2017-01-02] MEDS ORDERED: MTR600X PO (10:12)
[2017-01-02] MEDS ORDERED: HYDR-5688 PO (17:37)
== END 2016-12-07 13:01 | disposition home or self-care (01) ==
LOC: C.EDB 10:20
DX: N93.8 Other specified abnormal uterine and vaginal bleeding (principal); R42 Dizziness and giddiness; F31.9 Bipolar disorder, unspecified; E03.9 Hypothyroidism, unspecified; F17.200 Nicotine dependence, unspecified, uncomplicated; Z98.51 Tubal ligation status; Z82.49 Family history of ischemic heart disease and other diseases of the circulatory system; Z80.1 Family history of malignant neoplasm of trachea, bronchus and lung

== ENCOUNTER 2017-01-02 06:05 | Observation (INO) | payer BC, OTHER ==
[2016-12-14 13:38] VITALS: BMI 46.0
--- NOTE | 2016-12-14 14:18 | PAT Medication Instructions ---
Service Date Dec 14, 2016. Current Home Medication List Albuterol Hfa (Ventolin Hfa), 2-4 PUFFS INH Q6H Fexofenadine Hcl (Destiney), 180 MG PO QAM Hydroxyzine Hcl (Atarax), 10 MG PO QID PRN for Anxiety and/or Sedation Levothyroxine Sodium (Synthroid), 175 MCG PO QAM [place] Carbonate (Valmeyer Carbonate), 600 MG PO BID Montelukast Sodium (Singulair), 10 MG PO QAM Norethindrone (Aygestin), 5 MG PO BID Medication Instructions For Your Scheduled Surgery -Instructions t be given by surgeon Norethindrone (Aygestin), 5 MG PO BID - Hold the following medications the morning of surgery: Montelukast Sodium (Singulair), 10 MG PO QAM Fexofenadine Hcl (Destiney), 180 MG PO QAM - Take the following medications the morning of surgery with a sip of water: Albuterol Hfa (Ventolin Hfa), 2-4 PUFFS INH Q6H (use if needed) (BRING WITH YOU THE MORNING OF THE SURGERY) Hydroxyzine Hcl (Atarax), 10 MG PO QID PRN for Anxiety and/or Sedation (if needed) [place]yer Carbonate (Valmeyer Carbonate), 600 MG PO BID Levothyroxine Sodium (Synthroid), 175 MCG PO QAM - Take the following medications as scheduled the night before surgery: Albuterol Hfa (Ventolin Hfa), 2-4 PUFFS INH Q6H (if needed) Hydroxyzine Hcl (Atarax), 10 MG PO QID PRN for Anxiety and/or Sedation (if needed) Valmeyer Carbonate (Valmeyer Carbonate), 600 MG PO BID If you have any questions please call us at [phone] or [phone] or [phone]
[2016-12-14 15:03] LABS: BASO % 0.3 %; BASO ABS # 0.04 K/uL (0-0.2); COMPLETE YES; EOS % 4.8 %; HEMATOCRIT 35.3 % (37-47); IG% 0.3 %; LYMPH % 24.6 %; LYMPH ABS # 2.91 K/uL (1.2-3.4); MEAN CELL VOLUME 88.7 fL (80-100); MEAN CORPUSCULAR HEMOGLOBIN 28.4 pg (25-34); MEAN PLATELET VOLUME 11.8 fL (7.4-10.4); MONO % 5.4 %; NEUT % 64.6 %; PLATELET COUNT 224 K/uL (130-400); RED BLOOD COUNT 3.98 M/uL (4.2-5.4); WHITE BLOOD COUNT 11.82 K/uL (4.8-10.8)
[2017-01-02] VITALS (9 sets, daily range): BP systolic 97–129; BP diastolic 63–94; PULSE 62–74; TEMP 36.5–37; O2SAT 94–98; Ht 157.5 cm; Wt 115.2 kg
[~2017-01-02] VITALS: Ht 157.5 cm; Wt 115.2 kg
[~2017-01-02 06:05] MED LIST changes: +CEFAZOLIN 3000 MG/65 ML D5W IV SCH; +CIPROFLOXACIN 400MG / 200ML D5W IV SCH; +HYDR-389 PO; +LACTATED RINGER'S 1000ML 1,000 ML IV SCH; +METRONIDAZOLE / NSS 500 MG in PREMIXED NSS 100 ML IV SCH; +NORE5TAB5 PO
[2017-01-02] MEDS ORDERED: ROCURONIUM BROMIDE 10 MG/ML 5 ML VIAL IV ONE (06:44)
[2017-01-02] MEDS ORDERED: LIDOCAINE HCL 2% 2 ML VIAL (20MG/ML) ONE (06:44)
[2017-01-02] MEDS ORDERED: PROPOFOL IV EMULSION 10 MG/ML 20 ML VIAL IV ONE (06:44)
[2017-01-02] MEDS ORDERED: MIDAZOLAM HCL 1 MG/ML 2ML VIAL ONE (06:44)
[2017-01-02] MEDS ORDERED: FENTANYL CITRATE INJ 50 MCG/1 ML 2 ML VIAL ONE ×3 (06:44→09:40)
[2017-01-02] MEDS ORDERED: BUPIVACAINE 0.5 % 5 MG/1 ML MPF 30ML VIAL ONE (06:53)
[2017-01-02] MEDS ORDERED: METHYLENE BLUE 0.5% 10 ML VIAL ONE (06:53)
--- NOTE | 2017-01-02 07:03 | History & Physical Bridge Note ---
H&P Re-Evaluation Bridge Note: I have examined the patient, reviewed the History & Physical and in the interval since the performance of the History & Physical I have noted the following changes of clinical significance: No changes noted
[2017-01-02 08:23] LABS: BASO % 0.3 %; BASO ABS # 0.03 K/uL (0-0.2); COMPLETE YES; EOS % 5.6 %; HEMATOCRIT 34.6 % (37-47); IG% 0.3 %; LYMPH % 21.1 %; LYMPH ABS # 2.35 K/uL (1.2-3.4); MEAN CELL VOLUME 88.7 fL (80-100); MEAN CORPUSCULAR HEMOGLOBIN 28.2 pg (25-34); MEAN CORPUSCULAR HGB CONC 31.8 g/dl (32-36); MEAN PLATELET VOLUME 11.5 fL (7.4-10.4); MONO % 6.9 %; NEUT % 65.8 %; PLATELET COUNT 211 K/uL (130-400); WHITE BLOOD COUNT 11.16 K/uL (4.8-10.8)
[2017-01-02] MEDS ORDERED: NEOSTIGMINE METHYLSULFATE 5 MG/5 ML SYR ONE (08:32)
[2017-01-02] MEDS ORDERED: ONDANSETRON INJ 2 MG/ML 2 ML VIAL ONE ×2 (08:32→09:55)
[2017-01-02] MEDS ORDERED: DEXAMETHASONE SOD INJ 4 MG/ML VIAL ONE (08:32)
[2017-01-02] MEDS ORDERED: GLYCOPYRROLATE INJ 0.2 MG/ML VIAL ONE (08:32)
[2017-01-02] MEDS ORDERED: EpHEDrine SULFATE INJ 50 MG/ML AMP IV PRN ×2 (09:45)
[2017-01-02] MEDS ORDERED: MEPERIDINE HCL 25 MG/ML CARP IV PRN ×2 (09:45)
[2017-01-02] MEDS ORDERED: HYDROmorphone INJ 1 MG/ML SYR IV PRN ×2 (09:45)
[2017-01-02] MEDS ORDERED: ATROPINE SULFATE 0.1 MG/ML 5ML SYR IV PRN ×2 (09:45)
[2017-01-02] MEDS ORDERED: LABETALOL HCL IV 5 MG/ML 20ML IV PRN ×2 (09:45)
[2017-01-02] MEDS ORDERED: FENTANYL CITRATE INJ 50 MCG/1 ML 2 ML VIAL IV PRN ×2 (09:45)
[2017-01-02] MEDS ORDERED: ONDANSETRON INJ 2 MG/ML 2 ML VIAL IV PRN ×3 (09:45→10:15)
[2017-01-02] MEDS ORDERED: TISSEEL FIBRIN SEALANT 4ML TOP ONE (09:49)
[2017-01-02] MEDS ORDERED: LACTATED RINGER'S 1000ML 1,000 ML IV SCH (10:02)
--- NOTE | 2017-01-02 10:03 | [facility] Post Operative Brief Note ---
Immediate Operative Summary Operative Date Jan 02, 2017. Pre-Operative Diagnosis Menorrhagia Post-Operative Diagnosis Same as preop Procedure(s) Performed Robot-Assisted Total Laparoscopic Hysterectomy Bilateral Salpingectomy, Lysis of Adhesions; Cystoscopy Surgeon Dr. Jason Log Sorting Supervisor Surgeon(s) None Estimated Blood Loss 50 ml Findings Dense adhesions Specimens A. Cervix, Uterus, Bilateral Fallopain Tubes Drains Beebe Anesthesia General Complication(s) None Disposition Recovery Room / PACU
--- NOTE | 2017-01-02 10:04 | Discharge Instructions ---
Discharge Instructions Date of Service Jan 02, 2017. Admission Reason for Admission: Abnormal Uterine Bleeding, Menorrhagia Discharge Discharge Diagnosis / Problem: Menorrhagia Discharge Goals Goal(s): Routine recovery after surgery Activity Recommendations Activity Limitations: per Instructions/Follow-up section . Instructions / Follow-Up Instructions / Follow-Up POST OPERATIVE: BOWEL FUNCTION/MEDICATIONS: 1. Constipation pain and discomfort are the most common complaints 5-7 days after surgery. Points 2-6 address the things that can help. 2. Chewing gum can help stimulate the gut and help improve digestion and motility. 3. Milk of Magnesia 1-2 times per day until return of bowel function. 4. Colace is a stool softener that helps. Taking this 2-3 times per day until bowel function returns to normal is highly recommended. 5. Dulcolax is a laxative that may be used if several days have passed without a bowel movement. Alternatively Miralax may be used daily instead. 6. Drink plenty of fluids as this will also reduce constipation. 7. Narcotic pain medications will be prescribed by your physician. They are safe to use and we encourage you to use them. If you are not allergic, ibuprofen will also be prescribed. Many patients will be able to transition off of the narcotic medications to ibuprofen by postoperative day 3. ACTIVITY RECOMMENDATIONS: 1. Get plenty of rest and listen to your body. If you are tired, take a nap. 2. You may shower, but do not take a tub bath until you see your doctor at the 2 week post operative visit. 3. Absolutely NO intercourse and nothing in the vagina until you are examined by your doctor at the 6 week visit. At that visit it will be determined when such activities can be resumed. This can range from 6-12 weeks after your surgery depending on healing time. 4. The main physical activity in the first week should be walking. By the second week you can slowly increase activity. There are no limits on walking up and down stairs. 5. Do not lift more than 5-10 lbs for 4 weeks. Remember the "one-handed rule", i.e. if you can lift something with only one hand it's likely okay. 6. Minimize c web developer like vacuuming and exercising for 4 weeks. "Overdoing it" can lead to incisions not healing, pain and vaginal bleeding , so again, listen to your body. 7. Driving can be resumed when you feel able. Do not drive within 24 hours of taking a narcotic medication. EXPECTATIONS: 1. Vaginal spotting, bleeding and discharge are common after surgery. There may even be an odor to the discharge which is often related to sutures used in the vagina. If you experience heavy vaginal bleeding, call the office number day or night [phone]. 2. Bladder discomfort is common after surgery from the catheter. This usually resolves in 1-2 weeks. 3. By the end of the 3rd or 4th week you should be feeling much better. It may take up to 6 weeks for your energy levels to return to normal. 4. Narcotic medications have side effects such as: dizziness, headache, nausea and/or vomiting. If you suspect your pain medication is causing problems, call our office and we may be able to prescribe an alternate medication. 5. The skin incisions are often covered with a liquid bandage. This will gradually peel off over time. CALL THE OFFICE IF YOU HAVE ANY OF THE FOLLOWIN. Temperature of 101 degrees or higher. 2. Severe abdominal or pelvic pain not relieved by pain medication. 3. Persistent nausea or vomiting. 4. Increased pain with urination or difficulty urinating. 5. Bright red bleeding that soaks more than 1 pad per hour. CONTACT PHONE NUMBERS: Main Office: [phone] Surgical Nurse: [phone] extension [phone] Avoid all tobacco products. If you need help to stop smoking, call [place]'s FREE QUITLINE at . This is a free call. Current Hospital Diet Patient's current hospital diet: Discharge Diet Recommended Diet: Regular Diet Procedures Procedures Performed: Robot-Assisted Total Laparoscopic Hysterectomy Bilateral Salpingectomy, Lysis of Adhesions; Cystoscopy Pending Studies Studies pending at discharge: no Medical Emergencies . Who to Call and When: Medical Emergencies: If at any time you feel your situation is an emergency, please call 911 immediately. . Non-Emergent Contact Non-Emergency issues call your: Compounding Pharmacy Technician . . "Provider Documentation" section prepared by Hemanth Jason. . VTE Core Measure Inpt VTE Proph given/why not?: Joe Villavicencio, SNOW's
[2017-01-02] MEDS ORDERED: MTR600X PO (10:12)
[2017-01-02] MEDS ORDERED: OXYC-57 PO (10:12)
[2017-01-02] MEDS ORDERED: OXYCODONE/ACETAMINOPHEN 5-325 TAB PO PRN ×2 (10:15)
[2017-01-02] MEDS ORDERED: BISACODYL 10 MG SUPP PR PRN (10:15)
[2017-01-02] MEDS ORDERED: ACETAMINOPHEN 325 MG TAB PO PRN (10:15)
[2017-01-02] MEDS ORDERED: PROMETHAZINE HCL INJ 25 MG in SODIUM CHLORIDE 0.9% 50ML 50 ML IV PRN (10:15)
[2017-01-02] MEDS ORDERED: PROMETHAZINE HCL INJ 12.5 MG in SODIUM CHLORIDE 0.9% 50ML 50 ML IV PRN (10:15)
[2017-01-02] MEDS ORDERED: KETOROLAC TROMETHAMINE 30 MG/ML VIAL IV. PRN (10:15)
[2017-01-02] MEDS ORDERED: MAGNESIUM HYDROXIDE SUSP 30 ML UDC PO PRN (10:15)
[2017-01-02] MEDS ORDERED: SIMETHICONE 80 MG CHEW PO PRN (10:15)
[2017-01-02] MEDS ORDERED: ZOLPIDEM TARTRATE 5 MG TAB PO PRN (10:15)
[2017-01-02] MEDS ORDERED: MEPERIDINE HCL 50 MG/ML CARP IV PRN ×2 (10:15)
--- NOTE | 2017-01-02 10:41 | OPERATIVE REPORT ---
DATE OF OPERATION: 01/02/2017 PREOPERATIVE DIAGNOSES: Menorrhagia, anemia. POSTOPERATIVE DIAGNOSES: Menorrhagia, anemia. PROCEDURE: Robotically assisted total laparoscopic hysterectomy, bilateral salpingectomy, cystoscopy, and lysis of dense abdominal adhesions. SURGEON: Dr. Jason. GEM TECHNICIAN: None. ESTIMATED BLOOD LOSS: 50 mL. SPECIMENS: Uterus, bilateral fallopian tubes. COMPLICATIONS: None. DRAINS: Beebe. ANESTHETIC: General. DISPOSITION: Recovery room. DESCRIPTION OF PROCEDURE: The case was reviewed with Faiza before surgery. Discussed risks including high BMI and 2 prior C-sections and potential for internal organ injury due to her risk factors. Discussed how this would be addressed, reviewed the consent and patient was sent back to the operating room, receiving appropriate antibiotics, Cipro, Flagyl IV. The patient was prepped and draped in dorsal lithotomy position in [facility]. Bladder drained with a Beebe catheter, VCare attached to the cervix in the usual fashion. Gloves changed and a supraumbilical incision and her previous gallbladder incision was used. Cutting this with the scalpel using open dissection Ricky technique, we cut down to subcutaneous fat to the fascia in the midline and fascia. Rectus muscle split and peritoneal cavity entered. Blunt-tipped Ricky trocar placed, balloon inflated and CO2 gas to insufflate the abdomen. FINDINGS: Upper abdomen was normal, no sign of visceral organ injury. There are dense anterior abdominal adhesions likely related to her previous section scar. The omentum was tacked up on the anterior abdominal wall all the way down to the pelvis. Three robotic ports placed, 2 in the right and 1 in the left under direct visualization and a left upper quadrant accessory port 11 mm blade was placed as well. The procedure was begun by attention to the anterior abdominal adhesions and staying close to the anterior abdominal mall, I was able to lyse these away to visualize the pelvis. This took approximately 35 minutes of operating time. Once that was able to see the pelvis, following findings I could see the bladder flap. There were adhesions, they were not overly dense. The adnexa appeared normal, small simple cyst on the left side and ureter seemed to follow a normal course. Using the V-Care manipulator, we then displaced the uterus, bladder and identified the left adnexa. The fallopian tube was then removed through the accessory port. We then coagulated distal to the ovary of the uterine ovarian blood supply we were well away from the ureter on the left side, process was continued to the round ligament which was coagulated and cut and then uterine vessels skeletonized. The bladder flap adhesions after prior C-sections were there was able to dissect these without difficulty using the monopolar remington. Once we were able to identify the blood supply on the left side, the left uterine artery and vein were then coagulated with the bipolar [place]. We were well away from the left ureter and then vessels were then cut with monopolar remington. The exact same process was repeated on the right side, staying distal to the right ovary through the uterine vessel coagulation. Once the bladder flap was fully sharply dissected away, I was able to get the right vessels as well and these were cut and again we were well away from the ureter and then made an anterior colpotomy with the monopolar remington, continued this around for full colpotomy staying medial to our uterine vessel ligations. Uterus was then pulled into the vagina and then removed and a sponge and a glove was placed to maintain pneumoperitoneum. After suction of blood in the pelvis, we then did instrument exchange arm #1 became the zara sales warehouse driver, arm two #2 became the cobra, 12 inch 2-0 V-Loc 90-day suture then passed. We closed the cuff from left to right back right to left at least 1 cm full thickness bites. At this stage, suture was cut so there was no tail. After generous irrigation and suction, hemostasis was excellent. Cystoscopy was then performed removing the Beebe catheter. We have removed the sponge in the vagina earlier and there was no air leakage. On visualization, the bladder appeared normal, no sutures were seen, no damage and good strong jets of blue dye from both left and right ureter openings as Methylene blue had been given by anesthesia at the start of cuff closure. New Beebe catheter then placed and then we readjust the pelvis with the robot and no bleeding was there. I did place Tisseel 4 mL over the pedicle sites and the cuff. Instruments were then removed and robot was undocked, and ports removed, gas allowed to escape. Incisions injected with 0.5% Marcaine. Fascia closed carefully in the umbilical incision using 0 Vicryl for this step and also with a left upper quadrant port. After generous irrigation and suction, we then closed with 4-0 subcuticular Monocryl and Dermabond. Sponge and instrument counts correct. I attest to the content of the Intraoperative Record and any orders documented therein. Any exception s are noted below.
--- NOTE | 2017-01-02 10:43 | Anesthesiology Progress Note ---
Anesthesia Post Op Note Date & Time Jan 02, 2017 at 10:43 Vital Signs Pain Intensity: 0 Vital Signs Past 12 Hours Date Time Temp Pulse Resp B/P (MAP) Pulse Ox O2 Delivery O2 Flow Rate FiO2 01/02/17 10:40 69 18 162/88 100 Oxymask 3 01/02/17 10:30 93 18 158/88 98 Oxymask 5 01/02/17 10:20 77 16 156/78 98 Oxymask 5 01/02/17 10:13 36.1 79 16 140/80 98 Oxymask 10 01/02/17 06:29 36.9 74 18 120/94 (103) 97 Room Air Notes Mental Status: alert / awake / arousable, participated in evaluation Pt Amnestic to Procedure: Yes Nausea / Vomiting: adequately controlled Pain: adequately controlled Airway Patency, RR, SpO2: stable & adequate BP & HR: stable & adequate Hydration State: stable & adequate Anesthetic Complications: no major complications apparent
[2017-01-02] MEDS ORDERED: IV FLUIDS COMPLETED PRN (10:45)
[2017-01-02] MEDS: HYDROCODONE/ACETAMOPHEN 5/325MG TAB PO PRN ×2 (16:22→20:05)
[2017-01-02] MEDS ORDERED: HYDR-5688 PO (17:37)
[2017-01-02] MEDS: IBUPROFEN 600 MG TAB PO PRN (18:27)
[2017-01-02 20:35] LABS: HEMATOCRIT 35.7 % (37-47)
[2017-01-02] MEDS ORDERED: DOCUSATE SODIUM 100 MG CAP PO SCH (21:00)
[2017-01-03] MEDS: HYDROCODONE/ACETAMOPHEN 5/325MG TAB PO PRN ×2 (00:04→05:01)
[2017-01-03] MEDS: IBUPROFEN 600 MG TAB PO PRN (02:27)
[2017-01-03 03:00] VITALS: BP 102/61; PULSE 70; TEMP 36.8; O2SAT 96
[2017-01-03 06:39] LABS: BASO % 0.2 %; BASO ABS # 0.03 K/uL (0-0.2); COMPLETE YES; EOS % 0.7 %; HEMATOCRIT 33.8 % (37-47); IG% 0.4 %; LYMPH % 9.5 %; LYMPH ABS # 1.76 K/uL (1.2-3.4); MEAN CELL VOLUME 88.7 fL (80-100); MEAN CORPUSCULAR HEMOGLOBIN 28.1 pg (25-34); MEAN CORPUSCULAR HGB CONC 31.7 g/dl (32-36); MEAN PLATELET VOLUME 11.6 fL (7.4-10.4); MONO % 7.8 %; NEUT % 81.4 %; PLATELET COUNT 212 K/uL (130-400); RED BLOOD COUNT 3.81 M/uL (4.2-5.4); WHITE BLOOD COUNT 18.58 K/uL (4.8-10.8)
[2017-01-03 07:45] VITALS: BP 114/70; PULSE 67; TEMP 36.7
--- NOTE | 2017-01-03 07:49 | Progress Note ---
Progress Note Date of Service Jan 03, 2017. Progress Note Postop day #1. Patient is doing well ambulating tolerating oral diet she is no extremity pain and pain is controlled by oral pain medication Physical exam vital signs are stable afebrile chest clear abdomen soft nontender bowel sounds positive extremity exam negative Impression and plan postop day #1 meets criteria discharge instructions reviewed prescriptions given
[2017-01-03 08:40] VITALS: BP 114/70; PULSE 67; TEMP 36.7; O2SAT 96
--- NOTE | 2017-01-03 08:52 | Anesthesiology Progress Note ---
Anesthesia Post Op Note Date & Time Jan 03, 2017 at 08:51 Vital Signs Pain Intensity: 1.0 Vital Signs Past 12 Hours Date Time Temp Pulse Resp B/P (MAP) Pulse Ox O2 Delivery O2 Flow Rate FiO2 01/03/17 08:40 36.7 67 18 96 Room Air 01/03/17 07:45 Room Air 01/03/17 07:45 36.7 67 18 114/70 (85) Room Air 01/03/17 03:00 36.8 70 18 102/61 (75) 96 Room Air 01/02/17 23:30 36.7 70 18 97/63 (74) 97 Room Air 01/02/17 23:30 97 Room Air Notes Mental Status: alert / awake / arousable, participated in evaluation Pt Amnestic to Procedure: Yes Nausea / Vomiting: adequately controlled Pain: adequately controlled Airway Patency, RR, SpO2: stable & adequate BP & HR: stable & adequate Hydration State: stable & adequate Anesthetic Complications: no major complications apparent
--- NOTE | 2017-01-06 08:47 | DISCHARGE SUMMARY ---
SUBJECTIVE: Faiza had a laparoscopic hysterectomy. This was an uncomplicated procedure. Operative note has been dictated on 01/02/2017. By postop day #1 she met discharge criteria. At that time she was ambulating, passing flatus, had no vaginal bleeding. Pain was well controlled and was voiding well. PHYSICAL EXAMINATION: VITAL SIGNS: Stable. She was afebrile. CHEST EXAMINATION: Clear. ABDOMINAL EXAMINATION: Benign. Bowel sounds positive, nontender. Incision is clean, dry and intact. EXTREMITY EXAMINATION: Negative. IMPRESSION AND PLAN: Postop day #1 from total laparoscopic history, given prescriptions for Vicodin and ibuprofen. Discharge instructions reviewed and told to follow up in the office.
== END 2017-01-03 09:00 | disposition home or self-care (01) ==
LOC: C.ACU 06:05 → C.MS4N 10:03 → ENRESERV 10:42
PROVIDERS: ADMIT Obstetrics & Gynecology; ATTEND Obstetrics & Gynecology
DX: N72 Inflammatory disease of cervix uteri (principal); D25.2 Subserosal leiomyoma of uterus; N73.6 Female pelvic peritoneal adhesions (postinfective); N80.2 Endometriosis of fallopian tube; D64.9 Anemia, unspecified; J45.909 Unspecified asthma, uncomplicated; E03.9 Hypothyroidism, unspecified; R91.1 Solitary pulmonary nodule; F31.9 Bipolar disorder, unspecified; F17.200 Nicotine dependence, unspecified, uncomplicated; Z79.899 Other long term (current) drug therapy

== ENCOUNTER → 2017-03-21 | Outpatient (CLI) | payer BC ==
[~2017-03-21] MED LIST changes: -CEFAZOLIN 3000 MG/65 ML D5W IV SCH; -CIPROFLOXACIN 400MG / 200ML D5W IV SCH; +HYDR-5688 PO; -LACTATED RINGER'S 1000ML 1,000 ML IV SCH; -METRONIDAZOLE / NSS 500 MG in PREMIXED NSS 100 ML IV SCH; +MTR600X PO; -NORE5TAB5 PO; +OXYC-57 PO
--- NOTE | 2017-03-22 07:35 | MAMMOGRAPHY REPORT ---
BILATERAL DIGITAL SCREENING MAMMOGRAM TOMOSYNTHESIS WITH CAD: 03/21/2017 CLINICAL HISTORY: Routine screening. Patient has no complaints. TECHNIQUE: Breast tomosynthesis in addition to standard 2D mammography was performed. Current study was also evaluated with a Computer Aided Detection (CAD) system. COMPARISON: Comparison is made to exams dated: 09/10/2015 mammogram - [facility], mammogram, and 06/16/2008 mammogram - [facility]. BREAST COMPOSITION: The tissue of both breasts is heterogeneously dense, which may obscure small mas ses. FINDINGS: The parenchymal pattern is similar to the 2016 mammograms. No developing mass, architectu ral distortion or cluster of suspicious microcalcifications is seen in either breast. IMPRESSION: ACR BI-RADS CATEGORY 2: BENIGN There is no mammographic evidence of malignancy. A 1 year screening mammogram is recommended. The pa tient will receive written notification of the results. Approximately 10% of breast cancers are not detected with mammography. A negative mammographic report should not delay biopsy if a clinically suggestive mass is present. Kayce Braga M.D. ay/:03/22/2017 07:04:16 Distresser: Davina HEARD(Cristobal)(Joanne), [facility] letter sent: Normal 1/2 BI-RADS Code: ACR BI-RADS Category 2: Benign
== END | disposition home or self-care (01) ==
LOC: C.MAMM 08:33
PROVIDERS: ATTEND Obstetrics & Gynecology
DX: Z12.31 Encounter for screening mammogram for malignant neoplasm of breast (principal)

== ENCOUNTER → 2017-04-12 | Outpatient (CLI) | payer BC ==
[~2017-04-12] MED LIST changes: +ALBINS/ INH; +AZIT-57 PO; +AZIT250T PO; +AZITTAB PO; +CYCL1SOL OPR; +FLVHFA220 INH; +GFNSR600 PO; +IBUP-1277 PO; +IPRA1AER2 INH; +LVQ750 PO; +MDRDP21 PO; +ONDA4TAB10 SL; +PRED1SUS3 OPR; +PRED20TA PO; +PRED50TA PO; +RANI150T2 PO
== END | disposition home or self-care (01) ==
LOC: C.LABSPEC 12:06
PROVIDERS: ATTEND Nurse Practitioner Adult Health
DX: R30.0 Dysuria (principal)

== ENCOUNTER 2017-04-13 08:51 | Emergency (ER) | payer BC ==
[~2017-04-13] VITALS: Ht 157.5 cm; Wt 114.4 kg
[~2017-04-13 08:51] MED LIST changes: -ALBINS/ INH; -AZIT-57 PO; -AZIT250T PO; -AZITTAB PO; -CYCL1SOL OPR; -FLVHFA220 INH; -GFNSR600 PO; -IBUP-1277 PO; -IPRA1AER2 INH; -LVQ750 PO; -MDRDP21 PO; -ONDA4TAB10 SL; -PRED1SUS3 OPR; -PRED20TA PO; -PRED50TA PO; -RANI150T2 PO
[2017-04-13 09:02] VITALS: Ht 157.5 cm; Wt 114.4 kg
[2017-04-13] MEDS ORDERED: MDRDP21 PO (09:39)
[2017-04-13] MEDS ORDERED: FLVHFA220 INH (09:39)
[2017-04-13] MEDS ORDERED: RANI150T2 PO (09:39)
[2017-04-13] MEDS ORDERED: DEXAMETHASONE SOD INJ 4 MG/ML VIAL IV STA ×2 (10:39→12:34)
[2017-04-13] MEDS ORDERED: ALBUT/IPRATROP 3MG/0.5MG NEB 3 ML VIAL INH STA ×2 (10:39→12:34)
[2017-04-13] MEDS ORDERED: BENZONATATE 100MG CAP PO ONE (10:45)
--- NOTE | 2017-04-13 11:18 | EMERGENCY ROOM VISIT NOTE ---
History Report prepared by Jesse: Lloyd Pitts Under the Supervision of: Dr. Leatha Santos D.O. First contact with patient: 10:20 Chief Complaint: SHORTNESS OF BREATH Stated Complaint: SOB,CHEST PAIN Nursing Triage Summary: Pt states congestion and coughing started 3 days ago, saw PCP yesterday, started on medrol does pack and zofran for some stomach issues. Lungs decreased History of Present Illness The patient is a 41 year old female who presents to the Emergency Room with complaints of worsening chest pain that began 1 day ago. She describes the pain as dull and intermittent. Pain is exacerbated with pressure on the chest. She states that body position does not affect her pain. She has associated symptoms of shortness of breath and that began a couple days ago. She has associated back pain down her whole back. She states she has had a fever but has not taken her temperature. She denies leg swelling. Patient states she has asthma. She adds that she used her nebulizer 5 times since last night. She notes that she uses a puffer, but did not use the spacer with it last night. Patient states she is prone to bronchitis. She is not currently on any breathing treatments. Pertinent medical history includes a hysterectomy. She has a family medical history of breast cancer. She denies getting a flu shot. Patient adds she is smoker and denies any recent travels. Source of History: patient Onset: 1 day ago Position: chest Quality: dull Timing: intermittent Modifying Factors (Worsening): other (Pressure) Associated Symptoms: + fevers, + SOB Note: Patient denies leg swelling. Review of Systems See HPI for pertinent positives & negatives. A total of 10 systems reviewed and were otherwise negative. Past Medical & Surgical Medical Problems: (1) Anemia (2) Bilateral tubal ligation (3) Bipolar disorder (4) section (5) History of - tubal ligation (6) Hypothyroidism (7) Menorrhagia (8) Tonsillectomy Surgical Problems: (1) H/O lumbar discectomy (2) S/P cholecystectomy (3) S/P tonsillectomy Family History FH: lung cancer FHx: cancer FHx: heart disease Hypertension Social History Smoking Status: Current Every Day Smoker Alcohol Use: none Drug Use: none Marital Status: Housing Status: lives with family Occupation Status: employed Current/Historical Medications Scheduled Azithromycin (Zithromax), 250 MG PO DAILY Fexofenadine Hcl (Destiney), 180 MG PO QAM Levothyroxine Sodium (Synthroid), 175 MCG PO QAM Methylprednisolone (Methylprednisolone Dose P), 1 DOSE PO DIRECTED Montelukast Sodium (Singulair), 10 MG PO QAM Ranitidine HCl (Ranitidine HCl), 150 MG PO DAILY Scheduled PRN Albuterol Hfa (Ventolin Hfa), 2-4 PUFFS INH Q6H PRN for Shortness of Breath Fluticasone Propionate (Flovent Hfa), 2 PUFF INH BID PRN for SOB/Wheezing Hydroxyzine Hcl (Atarax), 10 MG PO QID PRN for Anxiety and/or Sedation Ibuprofen (Ibuprofen), 600 MG PO Q6H PRN for Pain,LLAMAS,cramping,or fever Allergies Coded Allergies: Penicillins (Verified Allergy, Mild, HIVES, 01/02/17) Cat Dander (Verified Allergy, Unknown, UNKNOWN REACTION, 01/02/17) Dog Dander (Verified Allergy, Unknown, UNKNOWN REACTION, 01/02/17) Physical Exam Vital Signs Date Time Temp Pulse Resp B/P (MAP) Pulse Ox O2 Delivery O2 Flow Rate FiO2 04/13/17 14:44 36.7 83 20 133/83 95 04/13/17 14:02 36.7 83 20 133/83 95 Room Air 04/13/17 12:36 36.7 68 20 125/96 96 Room Air 04/13/17 11:27 71 20 159/74 97 Room Air 04/13/17 09:48 75 04/13/17 09:46 96 Room Air 04/13/17 09:43 79 20 131/86 96 Room Air 04/13/17 09:02 95 Room Air 04/13/17 09:02 36.8 72 20 139/85 95 Room Air Physical Exam GENERAL: alert, obese, well appearing, well nourished, no distress, non-toxic EYE EXAM: normal conjunctiva, PERRL and EOM's grossly intact OROPHARYNX: no exudate, no erythema, lips, buccal mucosa, and tongue normal and mucous membranes are moist NECK: supple, no nuchal rigidity, no adenopathy, non-tender LUNGS: Diminished breath sounds. No wheezing, rhonchi, or rales. Normal chest wall mechanics HEART: no murmurs, S1 normal and S2 normal ABDOMEN: abdomen soft, non-tender, normo-active bowel sounds, no masses, no rebound or guarding. BACK: Back is symmetrical on inspection and there is no deformity, no midline tenderness, no CVA tenderness. SKIN: no rashes and no bruising UPPER EXTREMITIES: upper extremities are grossly normal. LOWER EXTREMITIES: No pitting edema. NEURO EXAM: Normal sensorium, cranial nerves II-XII grossly intact, normal speech, no gross weakness of arms, no gross weakness of legs. Medical Decision & Procedures ER Provider Diagnostic Interpretation: Radiology results have been interpreted by the radiologist and reviewed by me. CHEST 2 VIEWS ROUTINE CLINICAL HISTORY: Cough and shortness of breath. COMPARISON STUDY: Chest radiograph May 13, [address] August 15, 2016. FINDINGS: The left heart border is obscured. There is airspace opacity along the left heart border which is new since previous exams. Lateral view demonstrates mild opacity projecting over the anterior heart. Right lung is clear. No pneumothorax or pleural effusion is present. Cardiomediastinal silhouette is stable. Pulmonary vascularity is normal. IMPRESSION: Lingular airspace opacity suggestive of pneumonia. Radiographic follow-up to ensure resolution is recommended. Electronically signed by: rJ Jackson M.D. 04/13/2017 11:43 AM Laboratory Results 04/13/17 11:24 Red Blood Count 4.76, Mean Corpuscular Volume 85.9, Mean Corpuscular Hemoglobin 28.4, Mean Corpuscular Hemoglobin Concent 33.0, Mean Platelet Volume 12.0, Neutrophils (%) (Auto) 81.1, Lymphocytes (%) (Auto) 11.2, Monocytes (%) (Auto) 4.7, Eosinophils (%) (Auto) 2.1, Basophils (%) (Auto) 0.5, Neutrophils # (Auto) 6.56, Lymphocytes # (Auto) 0.91, Monocytes # (Auto) 0.38, Eosinophils # (Auto) 0.17, Basophils # (Auto) 0.04 04/13/17 11:24 Test 04/13/17 11:24 04/13/17 11:25 White Blood Count 8.09 K/uL (4.8-10.8) Red Blood Count 4.76 M/uL (4.2-5.4) Hemoglobin 13.5 g/dL (12.0-16.0) Hematocrit 40.9 % (37-47) Mean Corpuscular Volume 85.9 fL (80-100) Mean Corpuscular Hemoglobin 28.4 pg (25-34) Mean Corpuscular Hemoglobin Concent 33.0 g/dl (32-36) Platelet Count 189 K/uL (130-400) Mean Platelet Volume 12.0 fL (7.4-10.4) Neutrophils (%) (Auto) 81.1 % Lymphocytes (%) (Auto) 11.2 % Monocytes (%) (Auto) 4.7 % Eosinophils (%) (Auto) 2.1 % Basophils (%) (Auto) 0.5 % Neutrophils # (Auto) 6.56 K/uL (1.4-6.5) Lymphocytes # (Auto) 0.91 K/uL (1.2-3.4) Monocytes # (Auto) 0.38 K/uL (0.11-0.59) Eosinophils # (Auto) 0.17 K/uL (0-0.5) Basophils # (Auto) 0.04 K/uL (0-0.2) RDW Standard Deviation 49.1 fL (36.4-46.3) RDW Coefficient of Variation 15.3 % (11.5-14.5) Immature Granulocyte % (Auto) 0.4 % Immature Granulocyte # (Auto) 0.03 K/uL (0.00-0.02) Anion Gap 2.0 mmol/L (3-11) Est Creatinine Clear Calc Drug Dose 116.6 ml/min Estimated GFR () 112.9 Estimated GFR (Non- 97.4 BUN/Creatinine Ratio 10.7 (10-20) Calcium Level 8.9 mg/dl (8.5-10.1) Total Bilirubin 0.3 mg/dl (0.2-1) Aspartate Amino Transf (AST/SGOT) 12 U/L (15-37) Alanine Aminotransferase (ALT/SGPT) 27 U/L (12-78) Alkaline Phosphatase 71 U/L (45-117) Troponin I < 0.015 ng/ml (0-0.045) Total Protein 7.6 gm/dl (6.4-8.2) Albumin 3.7 gm/dl (3.4-5.0) Globulin 3.9 gm/dl (2.5-4.0) Albumin/Globulin Ratio 0.9 (0.9-2) Influenza Type A Antigen Neg for Influ A (NEG) Influenza Type B Antigen Neg for Influ B (NEG) Medications Administered Medications (Trade) Dose Ordered Sig/Rafael Route Start Time Stop Time Status Last Admin Dose Admin Albuterol/ Ipratropium (Duoneb) 3 ml NOW STAT INH 04/13/17 10:39 04/13/17 10:40 DC 04/13/17 11:50 3 ML Benzonatate (Tessalon Perles Cap) 100 mg NOW ONCE PO 04/13/17 10:45 04/13/17 10:46 DC 04/13/17 11:51 100 MG Dexamethasone Sodium Phosphate (Decadron Inj) 10 mg NOW STAT IV 04/13/17 10:39 04/13/17 10:40 DC 04/13/17 11:50 10 MG Azithromycin (Zithromax Tab) 500 mg NOW ONCE PO 04/13/17 12:45 04/13/17 12:46 DC 04/13/17 12:41 500 MG Albuterol/ Ipratropium (Duoneb) 3 ml NOW STAT INH 04/13/17 12:34 04/13/17 12:36 DC 04/13/17 12:41 3 ML Dexamethasone Sodium Phosphate (Decadron Inj) 10 mg NOW STAT IV 04/13/17 12:34 04/13/17 12:36 DC 04/13/17 12:41 10 MG Ketorolac Tromethamine (Toradol Inj) 30 mg NOW STAT IV 04/13/17 13:46 04/13/17 13:47 DC 04/13/17 13:53 30 MG ECG Indication: chest pain, SOB/dyspnea Rate (beats per minute): 65 Rhythm: sinus rhythm Findings: no acute ischemic change, other (Normal axis. Normal interval) ED Course 1030: The patient was evaluated in room B9. A complete history and physical exam was performed. 1039: Decadron Inj 10mg IV, Duoneb 3ml INH 1045: Benzonatate 100mg PO 1234: Decadron Inj 10mg IV, Duoneb 3ml INH 1245: Zithromax Tab 500mg PO 1346: Toradol Inj 30mg 1352: Maalox Susp 15ml PO 1355: Upon reevaluation, the patient is feeling better. I discussed the findings and the treatment plan with the patient. She verbalizes agreement and understanding. She was discharged home. Medical Decision Differential diagnosis: Etiologies such as infections, reactive airway disease, pneumonia, pneumothorax , COPD, CHF, cardiac ischemia, pulmonary embolism, musculoskeletal, gastrointestinal, as well as others were entertained. Pt clinically presented as asthma exacerbation and possible bronchitis. Infiltrate read by rad on cxr. Pt not immunocompromised. Covered with antibiotics. Advised pt to continue with steroids PCP started yesterday. Discussed use of spacer with her MDI. Discussed sx to watch/return for, she verbalized understanding and was agreeable with plan. No evidence of bacteremia /sepsis, doubt cardiac pathology. Medication Reconcilliation Current Medication List: was personally reviewed by me Blood Pressure Screening Patient's blood pressure: Normal blood pressure Blood pressure disposition: Did not require urgent referral Impression Primary Impression: Pneumonia Additional Impression: Asthma exacerbation Scribe Attestation The scribe's documentation has been prepared under my direction and personally reviewed by me in its entirety. I confirm that the note above accurately reflects all work, treatment, procedures, and medical decision making performed by me. Departure Information Dispostion Home / Self-Care Prescriptions Azithromycin (Zithromax) 250 Mg Tab 250 MG PO DAILY, #4 TAB Prov: Leatha Santos, 04/13/17 Referrals Toribio Warner M.D. (PCP) Forms HOME CARE DOCUMENTATION FORM, IMPORTANT VISIT INFORMATION Patient Instructions My [facility] Additional Instructions Please follow up with your family doctor to recheck your condition and make sure that your symptoms are improving. You may use the inhaler up to every 4 hours as needed for shortness of breath or chest tightness. Please use your spacer with your inhaler at all times. If you find that the inhaler does not help, you feel more short of breath, you find you need to use the inhaler more than every 4 hours, please return the emergency room. If you develop worsening chest pain, fevers, cough, noticed blood in your sputum, develop dizziness, vomiting, or you've any other new concerns, please return the emergency room. Please take the antibiotics as prescribed. Please make sure you're drinking plenty of water. Please consider using a probiotic while you're on antibiotics. Problem Qualifiers Primary Impression: Pneumonia Pneumonia type: due to unspecified organism Laterality: left Lung location : unspecified part of lung Qualified Codes: J18.9 - Pneumonia, unspecified organism Additional Impression: Asthma exacerbation Asthma severity: mild Asthma persistence: intermittent Qualified Codes: J45.21 - Mild intermittent asthma with (acute) exacerbation
[2017-04-13 11:37] LABS: BASO % 0.5 %; BASO ABS # 0.04 K/uL (0-0.2); EOS % 2.1 %; EOS ABS # 0.17 K/uL (0-0.5); HEMATOCRIT 40.9 % (37-47); HEMOGLOBIN 13.5 g/dL (12.0-16.0); IG# 0.03 K/uL (0.00-0.02); LYMPH % 11.2 %; LYMPH ABS # 0.91 K/uL (1.2-3.4); MEAN CELL VOLUME 85.9 fL (80-100); MEAN CORPUSCULAR HEMOGLOBIN 28.4 pg (25-34); MONO % 4.7 %; MONO ABS # 0.38 K/uL (0.11-0.59); NEUT % 81.1 %; NEUT ABS # 6.56 K/uL (1.4-6.5); PLATELET COUNT 189 K/uL (130-400); RED CELL DISTRIBUTION WIDTH CV 15.3 % (11.5-14.5); RED CELL DISTRIBUTION WIDTH SD 49.1 fL (36.4-46.3); WHITE BLOOD COUNT 8.09 K/uL (4.8-10.8)
--- NOTE | 2017-04-13 11:44 | DIAGNOSTIC IMAGING REPORT ---
CHEST 2 VIEWS ROUTINE CLINICAL HISTORY: Cough and shortness of breath. COMPARISON STUDY: Chest radiograph May 13, [address] August 15, 2016. FINDINGS: The left heart border is obscured. There is airspace opacity along the left heart border which is new since previous exams. Lateral view demonstrates mild opacity projecting over the anterior heart. Right lung is clear. No pneumothorax or pleural effusion is present. Cardiomediastinal silhouette is stable. Pulmonary vascularity is normal. IMPRESSION: Lingular airspace opacity suggestive of pneumonia. Radiographic follow-up to ensure resolution is recommended. Electronically signed by: Jr Jackson M.D. 04/13/2017 11:43 AM Dictated Date/Time: 04/13/2017 11:41 AM
[2017-04-13 11:53] LABS: ALBUMIN 3.7 gm/dl (3.4-5.0); ALT/SGPT 27 U/L (12-78); AST/SGOT 12 U/L (15-37); BLOOD UREA NITROGEN 8 mg/dl (7-18); CALCIUM 8.9 mg/dl (8.5-10.1); CARBON DIOXIDE 27 mmol/L (21-32); CREATININE 0.76 mg/dl (0.60-1.20); GLUCOSE 123 mg/dl (70-99); POTASSIUM 4.1 mmol/L (3.5-5.1); SODIUM 137 mmol/L (136-145)
[2017-04-13 11:58] LABS: ALKALINE PHOSPHATASE 71 U/L (45-117); TOTAL PROTEIN 7.6 gm/dl (6.4-8.2)
[2017-04-13 12:02] LABS: INFLUENZA B ANTIGEN Neg for Influ B (NEG)
[2017-04-13] MEDS ORDERED: AZITHROMYCIN 250 MG TAB PO ONE (12:45)
[2017-04-13] MEDS ORDERED: KETOROLAC TROMETHAMINE 30 MG/ML VIAL IV STA (13:46)
[2017-04-13] MEDS ORDERED: ALUMINUM/MAGNESIUM SUSP 30 ML UDC PO STA (13:52)
[2017-04-13] MEDS ORDERED: AZIT250T PO (14:32)
[2017-04-13 14:44] VITALS: BP 133/83; PULSE 83; TEMP 36.7; O2SAT 95
== END 2017-04-13 14:45 | disposition home or self-care (01) ==
LOC: C.EDB 08:52
DX: J18.9 Pneumonia, unspecified organism (principal); J45.909 Unspecified asthma, uncomplicated; E03.9 Hypothyroidism, unspecified; F31.9 Bipolar disorder, unspecified; D64.9 Anemia, unspecified; F17.200 Nicotine dependence, unspecified, uncomplicated; Z98.51 Tubal ligation status; Z90.49 Acquired absence of other specified parts of digestive tract; Z98.890 Other specified postprocedural states; Z79.899 Other long term (current) drug therapy; Z88.0 Allergy status to penicillin; Z91.09 Other allergy status, other than to drugs and biological substances; Z80.9 Family history of malignant neoplasm, unspecified; Z82.49 Family history of ischemic heart disease and other diseases of the circulatory system

== ENCOUNTER 2017-04-24 12:13 | Emergency (ER) | payer BC ==
[~2017-04-24] VITALS: Ht 157.5 cm; Wt 113.5 kg
[~2017-04-24 12:13] MED LIST changes: +AZIT250T PO; +FLVHFA220 INH; -HYDR-5688 PO; -LITH600C PO; +MDRDP21 PO; -OXYC-57 PO; +RANI150T2 PO
[2017-04-24 12:35] VITALS: TEMP 36.8; Ht 157.5 cm; Wt 113.5 kg
[2017-04-24] MEDS ORDERED: IBUP-1277 PO (12:48)
[2017-04-24] MEDS ORDERED: ALBUTEROL 0.083% NEBU SOLN 3 ML VIAL INH STA (12:53)
[2017-04-24] MEDS ORDERED: METHYLPREDNISOLONE 125 MG VIAL IV STA (12:53)
[2017-04-24] MEDS ORDERED: KETOROLAC TROMETHAMINE 30 MG/ML VIAL IV STA (12:55)
[2017-04-24] MEDS ORDERED: BENZONATATE 100MG CAP PO ONE (13:00)
--- NOTE | 2017-04-24 13:15 | DIAGNOSTIC IMAGING REPORT ---
CHEST ONE VIEW PORTABLE HISTORY: Short of breath. cough COMPARISON: Chest 04/13/2017. FINDINGS: Lingular airspace opacity has essentially resolved in the interval. No new focal lung consolidations to suggest pneumonia. The heart is normal in size. No pleural effusions. No pneumothorax. IMPRESSION: No acute process. Electronically signed by: Oscar Barajas M.D. 04/24/2017 1:14 PM Dictated Date/Time: 04/24/2017 1:12 PM
[2017-04-24 13:38] LABS: BASO % 0.4 %; BASO ABS # 0.03 K/uL (0-0.2); EOS % 1.6 %; EOS ABS # 0.12 K/uL (0-0.5); HEMATOCRIT 40.1 % (37-47); HEMOGLOBIN 13.2 g/dL (12.0-16.0); IG# 0.13 K/uL (0.00-0.02); LYMPH % 13.6 %; LYMPH ABS # 1.04 K/uL (1.2-3.4); MEAN CORPUSCULAR HEMOGLOBIN 28.6 pg (25-34); MEAN CORPUSCULAR HGB CONC 32.9 g/dl (32-36); MEAN PLATELET VOLUME 11.5 fL (7.4-10.4); MONO % 10.8 %; MONO ABS # 0.83 K/uL (0.11-0.59); NEUT % 71.9 %; NEUT ABS # 5.51 K/uL (1.4-6.5); PLATELET COUNT 200 K/uL (130-400); RED CELL DISTRIBUTION WIDTH CV 16.1 % (11.5-14.5); RED CELL DISTRIBUTION WIDTH SD 51.4 fL (36.4-46.3); WHITE BLOOD COUNT 7.66 K/uL (4.8-10.8)
[2017-04-24 13:55] LABS: ALBUMIN 3.6 gm/dl (3.4-5.0); ALT/SGPT 33 U/L (12-78); BLOOD UREA NITROGEN 8 mg/dl (7-18); CALCIUM 8.9 mg/dl (8.5-10.1); CARBON DIOXIDE 23 mmol/L (21-32); CREATININE 0.66 mg/dl (0.60-1.20); GLUCOSE 96 mg/dl (70-99); LIPASE 83 U/L (73-393); POTASSIUM 3.9 mmol/L (3.5-5.1); SODIUM 137 mmol/L (136-145)
[2017-04-24 14:00] LABS: ALKALINE PHOSPHATASE 64 U/L (45-117); AST/SGOT 18 U/L (15-37); TOTAL PROTEIN 7.4 gm/dl (6.4-8.2)
[2017-04-24] MEDS ORDERED: AZITHROMYCIN 250 MG TAB PO STA (14:26)
[2017-04-24] MEDS ORDERED: AZIT-57 PO (14:29)
[2017-04-24] MEDS ORDERED: PRED50TA PO (14:29)
[2017-04-24 15:02] VITALS: BP 139/94; PULSE 83; O2SAT 95
--- NOTE | 2017-04-24 16:52 | EMERGENCY ROOM VISIT NOTE ---
History Report prepared by Jesse: David Lizama Under the Supervision of: Dr. Hayes Darby D.O. First contact with patient: 12:42 Chief Complaint: SHORTNESS OF BREATH Stated Complaint: SOB, PAIN BACK, DIZZY, COUGH History of Present Illness The patient is a 41 year old female who presents to the Emergency Room with complaints of worsening shortness of breath starting yesterday. The patient states that two weeks ago she had pneumonia, and the symptoms resolved other than chest tightness and shortness of breath. She states that yesterday she got much more short of breath, dizzy, light headed, she has a cough brining up yellow phlegm, chest tightness, runny nose, and sore throat. The patient notes that she saw her PCP today, and they sent her here for evaluation. She has a history of asthma. Source of History: patient Onset: yesterday Position: other (global) Quality: other (shortness of breath) Timing: worsening Associated Symptoms: + sorethroat, + cough, + chest pain Note: Associated symptoms: Dizzy, light headed, runny nose Review of Systems See HPI for pertinent positives & negatives. A total of 10 systems reviewed and were otherwise negative. Past Medical & Surgical Medical Problems: (1) Anemia (2) Bilateral tubal ligation (3) Bipolar disorder (4) section (5) History of - tubal ligation (6) Hypothyroidism (7) Menorrhagia (8) Tonsillectomy Surgical Problems: (1) H/O lumbar discectomy (2) S/P cholecystectomy (3) S/P tonsillectomy Family History FH: lung cancer FHx: cancer FHx: heart disease Hypertension Social History Smoking Status: Former Smoker Alcohol Use: none Drug Use: none Marital Status: Housing Status: lives with family Occupation Status: employed Current/Historical Medications Scheduled Azithromycin (Azithromycin), 250 MG PO DAILY Fexofenadine Hcl (Destiney), 180 MG PO QAM Levothyroxine Sodium (Synthroid), 175 MCG PO QAM Montelukast Sodium (Singulair), 10 MG PO HS Prednisone (Prednisone), 50 MG PO DAILY Ranitidine HCl (Ranitidine HCl), 150 MG PO DAILY Scheduled PRN Albuterol Hfa (Ventolin Hfa), 2-4 PUFFS INH Q6H PRN for Shortness of Breath Fluticasone Propionate (Flovent Hfa), 2 PUFF INH BID PRN for SOB/Wheezing Ibuprofen (Advil), 200-600 MG PO Q6H PRN for Pain Allergies Coded Allergies: Penicillins (Verified Allergy, Mild, HIVES, 04/24/17) Cat Dander (Verified Allergy, Unknown, UNKNOWN REACTION, 04/24/17) Dog Dander (Verified Allergy, Unknown, UNKNOWN REACTION, 04/24/17) Physical Exam Vital Signs Date Time Temp Pulse Resp B/P (MAP) Pulse Ox O2 Delivery O2 Flow Rate FiO2 04/24/17 15:02 83 20 139/94 95 Room Air 04/24/17 14:14 86 16 146/97 94 Room Air 04/24/17 12:35 36.8 91 20 146/91 93 Room Air Physical Exam GENERAL: Sitting up in bed, talking in full sentences, no acute distress, non- toxic. EYE EXAM: normal conjunctiva. OROPHARYNX: no exudate, no erythema, lips, buccal mucosa, and tongue normal and mucous membranes are moist NECK: supple, no nuchal rigidity, no adenopathy, non-tender LUNGS: Clear to auscultation. Normal chest wall mechanics HEART: no murmurs, S1 normal and S2 normal CHEST: Acute reproducible anterior chest wall pain. ABDOMEN: abdomen soft, non-tender, normo-active bowel sounds, no masses, no rebound or guarding. BACK: Back is symmetrical on inspection and there is no deformity, no midline tenderness, no CVA tenderness. SKIN: no rashes and no bruising UPPER EXTREMITIES: upper extremities are grossly normal. LOWER EXTREMITIES: Calves are equal bilaterally. No pitting edema. NEURO EXAM: Normal sensorium, cranial nerves II-XII grossly intact, normal speech, no gross weakness of arms, no gross weakness of legs. Gross sensation intact. Medical Decision & Procedures ER Provider Diagnostic Interpretation: Radiology results as stated below per my review and the radiologist's interpretation: ' CHEST ONE VIEW PORTABLE HISTORY: Short of breath. cough COMPARISON: Chest 04/13/2017. FINDINGS: Lingular airspace opacity has essentially resolved in the interval. No new focal lung consolidations to suggest pneumonia. The heart is normal in size. No pleural effusions. No pneumothorax. IMPRESSION: No acute process. Electronically signed by: Oscar Barajas M.D. 04/24/2017 1:14 PM Dictated Date/Time: 04/24/2017 1:12 PM Laboratory Results 04/24/17 13:20 Red Blood Count 4.61, Mean Corpuscular Volume 87.0, Mean Corpuscular Hemoglobin 28.6, Mean Corpuscular Hemoglobin Concent 32.9, Mean Platelet Volume 11.5, Neutrophils (%) (Auto) 71.9, Lymphocytes (%) (Auto) 13.6, Monocytes (%) (Auto) 10.8, Eosinophils (%) (Auto) 1.6, Basophils (%) (Auto) 0.4, Neutrophils # (Auto ) 5.51, Lymphocytes # (Auto) 1.04, Monocytes # (Auto) 0.83, Eosinophils # (Auto ) 0.12, Basophils # (Auto) 0.03 04/24/17 13:20 Test 04/24/17 13:20 White Blood Count 7.66 K/uL (4.8-10.8) Red Blood Count 4.61 M/uL (4.2-5.4) Hemoglobin 13.2 g/dL (12.0-16.0) Hematocrit 40.1 % (37-47) Mean Corpuscular Volume 87.0 fL (80-100) Mean Corpuscular Hemoglobin 28.6 pg (25-34) Mean Corpuscular Hemoglobin Concent 32.9 g/dl (32-36) Platelet Count 200 K/uL (130-400) Mean Platelet Volume 11.5 fL (7.4-10.4) Neutrophils (%) (Auto) 71.9 % Lymphocytes (%) (Auto) 13.6 % Monocytes (%) (Auto) 10.8 % Eosinophils (%) (Auto) 1.6 % Basophils (%) (Auto) 0.4 % Neutrophils # (Auto) 5.51 K/uL (1.4-6.5) Lymphocytes # (Auto) 1.04 K/uL (1.2-3.4) Monocytes # (Auto) 0.83 K/uL (0.11-0.59) Eosinophils # (Auto) 0.12 K/uL (0-0.5) Basophils # (Auto) 0.03 K/uL (0-0.2) RDW Standard Deviation 51.4 fL (36.4-46.3) RDW Coefficient of Variation 16.1 % (11.5-14.5) Immature Granulocyte % (Auto) 1.7 % Immature Granulocyte # (Auto) 0.13 K/uL (0.00-0.02) D-Dimer 400 ug/L FEU (0-500) Anion Gap 9.0 mmol/L (3-11) Est Creatinine Clear Calc Drug Dose 133.6 ml/min Estimated GFR () 127.2 Estimated GFR (Non- 109.7 BUN/Creatinine Ratio 12.4 (10-20) Calcium Level 8.9 mg/dl (8.5-10.1) Total Bilirubin 0.4 mg/dl (0.2-1) Direct Bilirubin < 0.1 mg/dl (0-0.2) Aspartate Amino Transf (AST/SGOT) 18 U/L (15-37) Alanine Aminotransferase (ALT/SGPT) 33 U/L (12-78) Alkaline Phosphatase 64 U/L (45-117) Troponin I < 0.015 ng/ml (0-0.045) Total Protein 7.4 gm/dl (6.4-8.2) Albumin 3.6 gm/dl (3.4-5.0) Lipase 83 U/L (73-393) Laboratory results per my review. Medications Administered Medications (Trade) Dose Ordered Sig/Rafael Route Start Time Stop Time Status Last Admin Dose Admin Albuterol Sulfate (Ventolin 0.083% 2.5MG/3ML Neb) 2.5 mg NOW STAT INH 04/24/17 12:53 04/24/17 12:54 DC 04/24/17 13:47 2.5 MG Methylprednisolone Sodium Succinate (Solu-Medrol IV) 125 mg NOW STAT IV 04/24/17 12:53 04/24/17 12:54 DC 04/24/17 13:48 125 MG Benzonatate (Tessalon Perles Cap) 100 mg NOW ONCE PO 04/24/17 13:00 04/24/17 13:01 DC 04/24/17 13:48 100 MG Ketorolac Tromethamine (Toradol Inj) 30 mg NOW STAT IV 04/24/17 12:55 04/24/17 12:56 DC 04/24/17 13:47 30 MG Azithromycin (Zithromax Tab) 500 mg NOW STAT PO 04/24/17 14:26 04/24/17 14:27 DC 04/24/17 15:03 500 MG ECG Indication: SOB/dyspnea Rate (beats per minute): 84 Rhythm: sinus rhythm Findings: no ectopy, other (normal axis) ED Course ED COURSE: Vital signs were reviewed and showed situational hypertension The patients medical record was reviewed The above diagnostic studies were performed and reviewed. ED treatments and interventions as stated above. 1242: The patient was evaluated in room C11. A complete history and physical examination was performed. 1253: Solu-Medrol 125mg IV, Albuterol Sulfate 2.5mg INH 1255: Toradol 30mg IV 1300: Benzonatate 100mg PO 1411: I reevaluated the patient, and she was feeling slightly better. 1424: Upon reevaluation, the patient is feeling significantly better.I discussed my findings with the patient and she understands and agrees with the treatment plan. Based on the patients age, coexisting illnesses, exam and lab findings the decision to treat as an outpatient was made. The patient remained stable while under my care. The patient appeared well at the time of discharge. 1426: Azithromycin 500mg PO Medical Decision Differential diagnoses includes but is not limited to pneumonia, bronchitis, COPD/Asthma exacerbation, pneumothorax, pulmonary embolism, congestive heart failure, acute coronary syndrome Patient is a 41-year-old female who presents to ER for shortness of breath associated with a productive cough, runny nose. All of her symptoms restarted this past Monday. She does admit to yellow productive sputum. History of asthma. Vitals show mild tachycardia. CBC all BMP, LFTs, bilirubin lipase is unremarkable. D-dimer was negative. EKG was unremarkable. Chest x-ray shows no acute infiltrate. Based on her symptoms she was given a neb treatment, steroids and azithromycin. She felt significantly better. She was discharged follow-up as an outpatient for bronchitis with asthma exacerbation. Discussed with Pt concerning signs and symptoms to watch out for. Pt was instructed to follow up with their PCP and discussed with the patient their option to return to the ED at anytime for persistent or worsening symptoms. The appropriate anticipatory guidance and out-patient management, including indications for return to the emergency department, were explained at length to the patient and understood. Medication Reconcilliation Current Medication List: was personally reviewed by me Blood Pressure Screening Patient's blood pressure: Elevated blood pressure Blood pressure disposition: Elevated BP felt to be situational Impression Primary Impression: Bronchitis Additional Impression: Asthma exacerbation Scribe Attestation The scribe's documentation has been prepared under my direction and personally reviewed by me in its entirety. I confirm that the note above accurately reflects all work, treatment, procedures, and medical decision making performed by me. Departure Information Dispostion Home / Self-Care Prescriptions Azithromycin (Azithromycin) 250 Mg Tab 250 MG PO DAILY for 4 Days Prov: Hayes Darby, DO 04/24/17 Prednisone (PREDNISONE) 50 Mg Tab 50 MG PO DAILY for 4 Days, TAB Prov: Hayes Darby, DO 04/24/17 Referrals Pro,Toribio Goldstein M.D. (PCP) Forms HOME CARE DOCUMENTATION FORM, IMPORTANT VISIT INFORMATION Patient Instructions Asthma - [facility], ED Bronchitis Asthmatic, My [facility] Additional Instructions Please follow up with your primary care doctor with in the next 24 hours. Any worsening of your symptoms, please return to the ED immediately. This includes any fevers greater than 100.4, worsening pain, chest pain, shortness breath, persistent nausea, vomiting, unable to eat or drink, or any other concerning signs or symptoms from your standpoint. Please take steroids and antibiotics as prescribed. Problem Qualifiers Additional Impression: Asthma exacerbation Asthma severity: unspecified severity Asthma persistence: unspecified Qualified Codes: J45.901 - Unspecified asthma with (acute) exacerbation
== END 2017-04-24 15:08 | disposition home or self-care (01) ==
LOC: C.EDB 12:14 → C.EDC 15:08
DX: J44.1 Chronic obstructive pulmonary disease with (acute) exacerbation (principal); E03.9 Hypothyroidism, unspecified; R03.0 Elevated blood-pressure reading, without diagnosis of hypertension; Z87.891 Personal history of nicotine dependence; Z82.49 Family history of ischemic heart disease and other diseases of the circulatory system; Z80.1 Family history of malignant neoplasm of trachea, bronchus and lung

== ENCOUNTER 2017-04-26 00:40 | Inpatient (IN) | payer BC ==
[~2017-04-26] VITALS: Ht 157.5 cm; Wt 112.8 kg
[~2017-04-26 00:40] MED LIST changes: +AZIT-57 PO; -AZIT250T PO; -HYDR-389 PO; +IBUP-1277 PO; -MDRDP21 PO; -MTR600X PO; +PRED50TA PO
[2017-04-26] MEDS ORDERED: METHYLPREDNISOLONE 125 MG VIAL IV STA (01:13)
[2017-04-26] MEDS ORDERED: ALBUT/IPRATROP 3MG/0.5MG NEB 3 ML VIAL INH ONE (01:15)
[2017-04-26 01:50] LABS: BASO % 0.2 %; BASO ABS # 0.02 K/uL (0-0.2); HEMATOCRIT 39.7 % (37-47); HEMOGLOBIN 13.5 g/dL (12.0-16.0); LYMPH % 15.3 %; LYMPH ABS # 1.85 K/uL (1.2-3.4); MEAN CELL VOLUME 85.9 fL (80-100); MEAN CORPUSCULAR HEMOGLOBIN 29.2 pg (25-34); MEAN PLATELET VOLUME 11.6 fL (7.4-10.4); MONO % 10.4 %; MONO ABS # 1.25 K/uL (0.11-0.59); NEUT % 73.3 %; NEUT ABS # 8.85 K/uL (1.4-6.5); PLATELET COUNT 244 K/uL (130-400); RED CELL DISTRIBUTION WIDTH CV 16.1 % (11.5-14.5); RED CELL DISTRIBUTION WIDTH SD 50.5 fL (36.4-46.3); WHITE BLOOD COUNT 12.07 K/uL (4.8-10.8)
[2017-04-26 02:13] LABS: ALBUMIN 3.7 gm/dl (3.4-5.0); ALT/SGPT 30 U/L (12-78); AST/SGOT 12 U/L (15-37); BLOOD UREA NITROGEN 11 mg/dl (7-18); CALCIUM 9.9 mg/dl (8.5-10.1); CARBON DIOXIDE 26 mmol/L (21-32); CREATININE 0.78 mg/dl (0.60-1.20); GLUCOSE 195 mg/dl (70-99); POTASSIUM 4.2 mmol/L (3.5-5.1); SODIUM 136 mmol/L (136-145)
[2017-04-26 02:15] LABS: ALKALINE PHOSPHATASE 68 U/L (45-117); TOTAL PROTEIN 7.2 gm/dl (6.4-8.2)
[2017-04-26] MEDS ORDERED: SODIUM CHLORIDE 0.9% 1000ML 1,000 ML IV STA (03:01)
[2017-04-26] MEDS ORDERED: MAGNESIUM SULFATE 1GM / D5W 1 GM BAG IV STA (03:01)
--- NOTE | 2017-04-26 05:19 | EMERGENCY ROOM VISIT NOTE ---
History First contact with patient: 00:55 Chief Complaint: SHORTNESS OF BREATH Stated Complaint: SOB,ASTHMA,CHEST TIGHTNESS Nursing Triage Summary: Pt recently diagnosed with bronchitis and pneumonia, hasn't been improving. Pt states exertional dyspnea much worse since yesterday. History of Present Illness The patient is a 41 year old female who presents to the Emergency Room with complaints of cough, congestion, shortness of breath for the past several days is currently being treated for bronchitis who is currently on Zithromax and prednisone. Patient states she still feels quite short of breath. She had an extensive workup yesterday to include chest x-ray, EKG, laboratory testing and a negative d-dimer. Patient states she is not feeling better from yesterday's visit. Patient states she's not been able to smoke for the past 2 weeks and she 's been sick. She is trying to quit. Patient denies chest pain, abdominal pain , headache, neck stiffness, vomiting, diarrhea. Review of Systems See HPI for pertinent positives & negatives. A total of 10 systems reviewed and were otherwise negative. Past Medical/Surgical History Medical Problems: (1) Anemia (2) Bilateral tubal ligation (3) Bipolar disorder (4) section (5) History of - tubal ligation (6) Hypothyroidism (7) Menorrhagia (8) Tonsillectomy Surgical Problems: (1) H/O lumbar discectomy (2) S/P cholecystectomy (3) S/P tonsillectomy Family History FH: lung cancer FHx: cancer FHx: heart disease Hypertension Social History Smoking Status: Former Smoker Alcohol Use: none Drug Use: none Marital Status: Housing Status: lives with family Occupation Status: employed Current/Historical Medications Scheduled Azithromycin (Azithromycin), 250 MG PO DAILY Fexofenadine Hcl (Destiney), 180 MG PO QAM Levothyroxine Sodium (Synthroid), 175 MCG PO QAM Montelukast Sodium (Singulair), 10 MG PO HS Prednisone (Prednisone), 50 MG PO DAILY Ranitidine HCl (Ranitidine HCl), 150 MG PO DAILY Scheduled PRN Albuterol Hfa (Ventolin Hfa), 2-4 PUFFS INH Q6H PRN for Shortness of Breath Fluticasone Propionate (Flovent Hfa), 2 PUFF INH BID PRN for SOB/Wheezing Ibuprofen (Advil), 200-600 MG PO Q6H PRN for Pain Physical Exam Vital Signs Date Time Temp Pulse Resp B/P (MAP) Pulse Ox O2 Delivery O2 Flow Rate FiO2 04/26/17 05:10 90 04/26/17 04:01 128/78 04/26/17 03:51 98 22 93 Room Air 04/26/17 03:36 85 21 93 04/26/17 03:31 146/75 04/26/17 03:21 94 23 93 04/26/17 03:06 93 20 93 04/26/17 03:01 91 Room Air 04/26/17 03:01 178/98 04/26/17 02:55 91 26 92 04/26/17 02:40 98 25 97 04/26/17 02:31 131/95 04/26/17 02:25 79 23 100 04/26/17 02:10 90 22 99 04/26/17 02:01 148/79 04/26/17 01:55 84 20 100 04/26/17 01:45 152/93 04/26/17 01:40 72 20 98 04/26/17 01:25 80 21 95 04/26/17 01:10 67 22 95 Room Air 04/26/17 01:07 72 04/26/17 01:04 129/85 04/26/17 00:50 36.6 71 22 152/87 94 Room Air Physical Exam PHYSICAL EXAM: Vital Signs: Reviewed Nurse's notes. Oxygen saturation was 94% on room air. GENERAL: Pleasant female coughing, Alert, oriented and coherent. The patient is barely able to speak in complete sentences. NECK: Supple, non- tender. CHEST: Symmetrical expansion. no retractions no accessory muscle use. HEART: Regular rate and normal heart sounds, no murmur, gallop or rub. LUNGS : Breath sounds equal but significantly diminished in intensity on both sides. Bilateral wheezes heard but no rales or pleuritic rub. SKIN: The skin was without rashes, erythema, edema, or bruising. There is no tenting of the skin. Capillary reflex less than 2 seconds. HEAD: Normocephalic atraumatic. EARS: External auditory canals clear, tympanic membranes pearly ibarra without erythema or effusion bilaterally. EYES: Pupils equal round and reactive to light and accommodation. Conjunctivae without injection, sclerae without icterus. Extraocular movements intact. NOSE: Patent, turbinates without inflammation or discharge. No sinus tenderness. MOUTH: Mucous membranes moist. Pharynx without erythema or exudate. Uvula midline. Airway patent. Tongue does not deviate. ABDOMEN: Positive bowel sounds x 4. Normal tympanic percussion. Soft, nontender, without masses or organomegaly. Washburn sign negative. No guarding or rebound tenderness. MUSCULOSKELETAL: No muscle atrophy, erythema, or edema noted. NEURO: Patient was alert and oriented to person place and time. Normal sensation to light and sharp touch. No focal neurological deficits. Medical Decision & Procedures Laboratory Results 04/26/17 01:42 Red Blood Count 4.62, Mean Corpuscular Volume 85.9, Mean Corpuscular Hemoglobin 29.2, Mean Corpuscular Hemoglobin Concent 34.0, Mean Platelet Volume 11.6, Neutrophils (%) (Auto) 73.3, Lymphocytes (%) (Auto) 15.3, Monocytes (%) (Auto) 10.4, Eosinophils (%) (Auto) 0.0, Basophils (%) (Auto) 0.2, Neutrophils # (Auto ) 8.85, Lymphocytes # (Auto) 1.85, Monocytes # (Auto) 1.25, Eosinophils # (Auto ) 0.00, Basophils # (Auto) 0.02 04/26/17 01:42 Test 04/26/17 01:42 White Blood Count 12.07 K/uL (4.8-10.8) Red Blood Count 4.62 M/uL (4.2-5.4) Hemoglobin 13.5 g/dL (12.0-16.0) Hematocrit 39.7 % (37-47) Mean Corpuscular Volume 85.9 fL (80-100) Mean Corpuscular Hemoglobin 29.2 pg (25-34) Mean Corpuscular Hemoglobin Concent 34.0 g/dl (32-36) Platelet Count 244 K/uL (130-400) Mean Platelet Volume 11.6 fL (7.4-10.4) Neutrophils (%) (Auto) 73.3 % Lymphocytes (%) (Auto) 15.3 % Monocytes (%) (Auto) 10.4 % Eosinophils (%) (Auto) 0.0 % Basophils (%) (Auto) 0.2 % Neutrophils # (Auto) 8.85 K/uL (1.4-6.5) Lymphocytes # (Auto) 1.85 K/uL (1.2-3.4) Monocytes # (Auto) 1.25 K/uL (0.11-0.59) Eosinophils # (Auto) 0.00 K/uL (0-0.5) Basophils # (Auto) 0.02 K/uL (0-0.2) RDW Standard Deviation 50.5 fL (36.4-46.3) RDW Coefficient of Variation 16.1 % (11.5-14.5) Immature Granulocyte % (Auto) 0.8 % Immature Granulocyte # (Auto) 0.10 K/uL (0.00-0.02) Anion Gap 6.0 mmol/L (3-11) Est Creatinine Clear Calc Drug Dose 112.9 ml/min Estimated GFR () 109.4 Estimated GFR (Non- 94.4 BUN/Creatinine Ratio 14.1 (10-20) Calcium Level 9.9 mg/dl (8.5-10.1) Magnesium Level 1.9 mg/dl (1.8-2.4) Total Bilirubin 0.3 mg/dl (0.2-1) Direct Bilirubin < 0.1 mg/dl (0-0.2) Aspartate Amino Transf (AST/SGOT) 12 U/L (15-37) Alanine Aminotransferase (ALT/SGPT) 30 U/L (12-78) Alkaline Phosphatase 68 U/L (45-117) Total Protein 7.2 gm/dl (6.4-8.2) Albumin 3.7 gm/dl (3.4-5.0) Human Chorionic Gonadotropin, Qual NEG (NEG) Medications Administered Medications (Trade) Dose Ordered Sig/Rafael Route Start Time Stop Time Status Last Admin Dose Admin Albuterol/ Ipratropium (Duoneb) 12 ml ONE ONCE INH 04/26/17 01:15 04/26/17 01:16 DC 04/26/17 01:41 12 ML Methylprednisolone Sodium Succinate (Solu-Medrol IV) 125 mg NOW STAT IV 04/26/17 01:13 04/26/17 01:14 DC 04/26/17 01:47 125 MG Magnesium Sulfate (Magnesium Sulfate) 1 gm NOW STAT IV 04/26/17 03:01 04/26/17 03:02 DC 04/26/17 03:08 1 GM Sodium Chloride 1,000 ml @ 999 mls/hr Q1H1M STAT IV 04/26/17 03:01 04/26/17 04:01 DC 04/26/17 03:03 999 MLS/HR ED Course Prior records/ancillary studies reviewed. Triage Nursing notes reviewed. The patient's history was concerning for respiratory difficulties. Differential diagnosis: Etiologies such as infections, reactive airway disease, pneumonia, pneumothorax , COPD, CHF, cardiac ischemia, pulmonary embolism, musculoskeletal, gastrointestinal, as well as others were entertained. Physical examination: As above. ER treatment provided: Nebulizer, steroids, magnesium, IV fluids On reassessment the patient felt better. Diagnostic interpretation by me: The labs revealed mild leukocytosis most likely from prednisone use. Hyperglycemia without DKA Imaging studies: Chest x-ray with no acute consolidation, pneumothorax or free air. Consultation: A consultation was placed with Dr. Villarreal hospitalist. The case was discussed and diagnostics were reviewed. The patient was evaluated in the ER for further treatment. This appears to be consistent with asthma exacerbation. Patient still felt quite short of breath and uncomfortable to go home. Medicine was consulted. She had no pneumonia on x-ray. She is given steroids, nebulizers and magnesium. She had an extensive workup yesterday that had a negative d-dimer EKG and troponin. She states she's been feeling sick for the past 2 weeks and has been on antibiotics. By the evaluation outlined above emergent etiologies such as CHF, cardiac ischemia, pulmonary embolism, pneumonia, pneumothorax, musculoskeletal, serious bacterial infections, as well as others were deemed relatively unlikely. The pt informed about the findings as listed above. All questions were answered and pleased with the treatment. Case reviewed with my attending Medical Decision As above Medication Reconcilliation Current Medication List: was personally reviewed by me Blood Pressure Screening Patient's blood pressure: Elevated blood pressure Blood pressure disposition: Elevated BP felt to be situational Impression Primary Impression: Asthmatic bronchitis Departure Information Dispostion Being Evaluated By Hospitalist Condition GOOD Referrals Pro,Toribio Goldstein M.D. (PCP) Patient Instructions My [facility] Problem Qualifiers Primary Impression: Asthmatic bronchitis Asthma severity: moderate Asthma persistence: persistent Asthma complication type: with acute exacerbation Qualified Codes: J45.41 - Moderate persistent asthma with (acute) exacerbation
[2017-04-26] MEDS ORDERED: FLUTICASONE HFA 220 MCG INHALER INH PRN (05:30)
[2017-04-26] MEDS ORDERED: ONDANSETRON INJ 2 MG/ML 2 ML VIAL IV PRN (05:30)
[2017-04-26] MEDS ORDERED: MAGNESIUM HYDROXIDE SUSP 30 ML UDC PO PRN (05:30)
--- NOTE | 2017-04-26 05:54 | History and Physical ---
History & Physical Date & Time of Service: Apr 26, 2017 at 05:21 Chief Complaint: Sob,Asthma,Chest Tightness Primary Care Physician: Toribio Warner M.D. History of Present Illness Source: patient The patient is a 41-year-old female with a past medical history of asthma, hypothyroidism, and GERD that presents with a two-week history of worsening shortness of breath. The patient hasn't been seen in the outpatient setting twice, and has failed 2 courses of prednisone along with a course of azithromycin. The patient states that she used her short acting inhaler 20 times yesterday with no relief. The patient also states that she has been having a productive cough that is now having yellow brownish sputum. The patient states that she has been unable to walk at all without becoming short of breath. The patient was evaluated in the emergency department yesterday including chest x-ray, d-dimer, and laboratory investigations that were all negative. The patient yesterday was treated with a dose of Solu-Medrol and improved in the ED and was discharged home. Today the patient again received a dose of Solu-Medrol and 1 L of IV normal saline although with no improvement in symptoms. The patient denies any chest pain or coughing up of blood, but does not feel like she is able to go home due to her continued shortness of breath and agitation. Initially the patient was having significant wheezing bilaterally in the emergency department, and despite an hour long breathing treatment the patient continued to have mild wheezing on auscultation. Past Medical/Surgical History Medical Problems: (1) Bilateral tubal ligation Status: Resolved (2) Bipolar disorder Status: Chronic (3) section Status: Resolved (4) History of - tubal ligation Status: Resolved (5) Hypothyroidism Status: Chronic (6) Tonsillectomy Status: Resolved Surgical Problems: (1) H/O lumbar discectomy Status: Resolved (2) S/P cholecystectomy Status: Resolved (3) S/P tonsillectomy Status: Resolved Family History FH: lung cancer FHx: cancer FHx: heart disease Hypertension Social History Smoking Status: Former Smoker Smokeless Tobacco Use: No Alcohol Use: none Drug Use: none Marital Status: Housing status: lives with family Occupational Status: employed Immunizations History of Influenza Vaccine: N/A History of Tetanus Vaccine?: Unknown History of Pneumococcal: No History of Hepatitis B Vaccine: No Multi-Drug Resistant Organisms History of MDRO: No Allergies Coded Allergies: Penicillins (Verified Allergy, Mild, HIVES, 04/26/17) Cat Dander (Verified Allergy, Unknown, UNKNOWN REACTION, 04/26/17) Dog Dander (Verified Allergy, Unknown, UNKNOWN REACTION, 04/26/17) Home Medications Scheduled Azithromycin (Azithromycin), 250 MG PO DAILY Fexofenadine Hcl (Destiney), 180 MG PO QAM Levothyroxine Sodium (Synthroid), 175 MCG PO QAM Montelukast Sodium (Singulair), 10 MG PO HS Prednisone (Prednisone), 50 MG PO DAILY Ranitidine HCl (Ranitidine HCl), 150 MG PO DAILY Scheduled PRN Albuterol Hfa (Ventolin Hfa), 2-4 PUFFS INH Q6H PRN for Shortness of Breath Fluticasone Propionate (Flovent Hfa), 2 PUFF INH BID PRN for SOB/Wheezing Ibuprofen (Advil), 200-600 MG PO Q6H PRN for Pain Review of Systems Constitutional: + fatigue, No fever, No chills, No sweats, No weight loss ENT: No sore throat Respiratory: + cough, + sputum, + wheezing Cardiovascular: No chest pain, No edema, No palpitations Abdomen: No pain, No nausea, No vomiting, No diarrhea, No constipation Genitourinary - Female: No dysuria Endocrine: + fatigue Physical Exam Vital Signs Date Time Temp Pulse Resp B/P (MAP) Pulse Ox O2 Delivery O2 Flow Rate FiO2 04/26/17 05:10 90 04/26/17 04:01 128/78 04/26/17 03:51 98 22 93 Room Air 04/26/17 03:36 85 21 93 04/26/17 03:31 146/75 04/26/17 03:21 94 23 93 04/26/17 03:06 93 20 93 04/26/17 03:01 91 Room Air 04/26/17 03:01 178/98 04/26/17 02:55 91 26 92 04/26/17 02:40 98 25 97 04/26/17 02:31 131/95 04/26/17 02:25 79 23 100 04/26/17 02:10 90 22 99 04/26/17 02:01 148/79 04/26/17 01:55 84 20 100 1/10/18 01:45 152/93 04/26/17 01:40 72 20 98 04/26/17 01:25 80 21 95 04/26/17 01:10 67 22 95 Room Air 04/26/17 01:07 72 04/26/17 01:04 129/85 04/26/17 00:50 36.6 71 22 152/87 94 Room Air General Appearance: WD/WN, no apparent distress Head: normocephalic, atraumatic Eyes: normal inspection, sclerae normal Neck: supple, no carotid bruits Respiratory/Chest: chest non-tender, no accessory muscle use, + wheezing ( bilateral) Cardiovascular: regular rate, rhythm, no edema, no gallop Abdomen/GI: normal bowel sounds, non tender, soft Neurologic/Psych: alert, normal mood/affect, normal reflexes Diagnostics Laboratory Results Results Past 24 Hours Test 04/26/17 01:42 Range/Units White Blood Count 12.07 4.8-10.8 K/uL Red Blood Count 4.62 4.2-5.4 M/uL Hemoglobin 13.5 12.0-16.0 g/dL Hematocrit 39.7 37-47 % Mean Corpuscular Volume 85.9 80-100 fL Mean Corpuscular Hemoglobin 29.2 25-34 pg Mean Corpuscular Hemoglobin Concent 34.0 32-36 g/dl Platelet Count 244 130-400 K/uL Mean Platelet Volume 11.6 7.4-10.4 fL Neutrophils (%) (Auto) 73.3 % Lymphocytes (%) (Auto) 15.3 % Monocytes (%) (Auto) 10.4 % Eosinophils (%) (Auto) 0.0 % Basophils (%) (Auto) 0.2 % Neutrophils # (Auto) 8.85 1.4-6.5 K/uL Lymphocytes # (Auto) 1.85 1.2-3.4 K/uL Monocytes # (Auto) 1.25 0.11-0.59 K/uL Eosinophils # (Auto) 0.00 0-0.5 K/uL Basophils # (Auto) 0.02 0-0.2 K/uL RDW Standard Deviation 50.5 36.4-46.3 fL RDW Coefficient of Variation 16.1 11.5-14.5 % Immature Granulocyte % (Auto) 0.8 % Immature Granulocyte # (Auto) 0.10 0.00-0.02 K/uL Sodium Level 136 136-145 mmol/L Potassium Level 4.2 3.5-5.1 mmol/L Chloride Level 104 98-107 mmol/L Carbon Dioxide Level 26 21-32 mmol/L Anion Gap 6.0 3-11 mmol/L Blood Urea Nitrogen 11 7-18 mg/dl Creatinine 0.78 0.60-1.20 mg/dl Est Creatinine Clear Calc Drug Dose 112.9 ml/min Estimated GFR () 109.4 Estimated GFR (Non- 94.4 BUN/Creatinine Ratio 14.1 10-20 Random Glucose 195 70-99 mg/dl Calcium Level 9.9 8.5-10.1 mg/dl Magnesium Level 1.9 1.8-2.4 mg/dl Total Bilirubin 0.3 0.2-1 mg/dl Direct Bilirubin < 0.1 0-0.2 mg/dl Aspartate Amino Transf (AST/SGOT) 12 15-37 U/L Alanine Aminotransferase (ALT/SGPT) 30 12-78 U/L Alkaline Phosphatase 68 45-117 U/L Total Protein 7.2 6.4-8.2 gm/dl Albumin 3.7 3.4-5.0 gm/dl Human Chorionic Gonadotropin, Qual NEG NEG Impression Assessment and Plan The patient is a 41-year-old female with a past medical history of asthma, hypothyroidism, and GERD that presents with a two-week history of worsening shortness of breath 1) Acute asthma exacerbation - Failed outpatient therapy with Prednisone x 2 and Azithromycin along with Fluticasone and Albuterol - DuoNebs q3h + q2h PRN wheezing - Solumedrol 60mg q6h - Levaquin IV 750mg daily - Guaifenesin - Continue home Fluticasone and Montelukast 2) Hypothyroidism - Continue home Synthroid 3) GERD - Continue home Ranitidine 4) Allergic Rhinitis - Continue home Destiney 5) DVT Prophylaxis - SCDs 6) Code Status - Full Resuscitation Attending addendum: I have physically seen this patient, have supervised the medical residents activities, and agree with the H&P unless as otherwise noted. Assessment and Plan: Acute asthma exacerbation/failure of outpatient therapy-- Levaquin 750 mg IV daily Solu-Medrol 60 mg IV every 6 hours Duonebs every 3 hours while awake and every 2 hours when necessary. Guaifenesin extended release 600 mg by mouth twice a day Sputum Gram stain and culture Continue Fluticasone and montelukast Level of Care Med/Surg Advanced Directives Existing Advance Directive: No Existing Living Will: No Existing Power of Uniform Maker: No Resuscitation Status FULL RESUSCITATION VTE Prophylaxis Risk Level: Moderate Given or contraindicated: SCD's
[2017-04-26 07:05] VITALS: BP 155/91; PULSE 85; TEMP 36.7; Ht 157.5 cm; Wt 112.8 kg
--- NOTE | 2017-04-26 07:37 | DIAGNOSTIC IMAGING REPORT ---
TWO VIEW CHEST CLINICAL HISTORY: Cough and dyspnea. FINDINGS: PA and lateral chest radiographs are compared to study dated 04/24/2017. The cardiomediastinal silhouette is unremarkable. The lungs and pleural spaces are clear. There is no pneumothorax. The bony thorax appears intact. Cholecystectomy clips are identified. IMPRESSION: No active disease in the chest. Electronically signed by: Manan Sow M.D. 04/26/2017 7:36 AM Dictated Date/Time: 04/26/2017 7:36 AM
[2017-04-26] MEDS: FEXOFENADINE HCL 180 MG TAB PO SCH (08:00)
[2017-04-26] MEDS ORDERED: METHYLPREDNISOLONE IV 60 MG in SYRINGE 0 ML IV SCH (08:00)
[2017-04-26] MEDS ORDERED: LEVOFLOXACIN / D5W 750 MG in PREMIXED IN D5W 150 ML IV SCH (08:00)
[2017-04-26] MEDS ORDERED: RANITIDINE HCL 150 MG TAB PO SCH (08:00)
[2017-04-26] MEDS ORDERED: GUAIFENESIN 200 MG TAB PO SCH (08:00)
[2017-04-26] MEDS: LEVOTHYROXINE 175 MCG TAB PO SCH (08:54)
[2017-04-26] MEDS ORDERED: RANITIDINE HCL 150 MG TAB PO ONE (09:38)
[2017-04-26 10:04] VITALS: O2SAT 96
[2017-04-26 11:18] VITALS: PULSE 89; O2SAT 96
[2017-04-26] MEDS: ALBUT/IPRATROP 3MG/0.5MG NEB 3 ML VIAL INH SCH ×3 (11:18→19:27)
[2017-04-26 15:09] VITALS: BP 141/88; PULSE 77; PULSE 79; TEMP 36.6; O2SAT 95; O2SAT 96
[2017-04-26] MEDS: ACETAMINOPHEN 325 MG TAB PO PRN (15:40)
[2017-04-26] MEDS ORDERED: COUGH DROP (SUGAR FREE) LOZ 24 LOZ/1 BOX PO PRN (19:00)
[2017-04-26 19:29] VITALS: PULSE 83; O2SAT 97
--- NOTE | 2017-04-26 20:05 | Family Medicine Progress Note ---
Progress Note Date of Service Apr 26, 2017. Subjective Pt evaluation today including: conversation w/ patient, physical exam, chart review, lab review, review of studies, review of inpatient medication list Feels much the same today. Duonebs not helping much. Feels there is a lot on her chest to cough up. All Other Systems: Reviewed and Negative Medications Current Inpatient Medications Medications (Trade) Dose Ordered Sig/Rafael Route Start Time Stop Time Status Last Admin Dose Admin Acetaminophen (Tylenol Tab) 650 mg Q4H PRN PO 04/26/17 05:30 05/26/17 05:29 04/26/17 15:40 650 MG Magnesium Hydroxide (Milk Of Magnesia Susp) 30 ml Q6H PRN PO 04/26/17 05:30 05/26/17 05:29 Ondansetron HCl (Zofran Inj) 4 mg Q6H PRN IV 04/26/17 05:30 05/26/17 05:29 Fexofenadine HCl (Destiney Tab) 180 mg QAM PO 04/26/17 08:00 05/26/17 08:59 04/26/17 08:00 180 MG Fluticasone Propionate (Flovent Hfa 220MCG Inhaler) 2 puffs BID PRN INH 04/26/17 05:30 05/26/17 05:29 Levothyroxine Sodium (Synthroid Tab) 175 mcg DAILYBB PO 04/27/17 06:30 05/27/17 06:29 04/26/17 08:54 175 MCG Montelukast Sodium (Singulair Tab) 10 mg HS PO 04/26/17 21:00 05/26/17 20:59 Levofloxacin 750 mg/Prmx 150 ml @ 100 mls/hr Q24H IV 04/26/17 08:00 05/06/17 07:59 04/26/17 08:00 100 MLS/HR Albuterol/ Ipratropium (Duoneb) 3 ml QIDR INH 04/26/17 08:00 05/26/17 07:59 04/26/17 19:27 3 ML Guaifenesin (Mucinex Contr Rel Tab) 1,200 mg Q12 PO 04/26/17 21:00 05/26/17 20:59 Ranitidine HCl (zANTac TAB) 150 mg BID PO 04/26/17 20:00 05/26/17 19:59 Menthol (Nice Bonita) 1 bonita Q4H PRN PO 04/26/17 19:00 05/26/17 18:59 Objective Vital Signs Date Time Temp Pulse Resp B/P (MAP) Pulse Ox O2 Delivery O2 Flow Rate FiO2 04/26/17 19:29 83 16 97 Room Air 04/26/17 16:00 Room Air 04/26/17 15:09 36.6 79 18 141/88 (105) 95 Room Air 04/26/17 15:09 77 16 96 Room Air 04/26/17 11:18 89 16 96 Room Air 04/26/17 10:04 96 Room Air 04/26/17 07:05 36.7 85 18 155/91 Room Air 04/26/17 06:18 80 19 95 04/26/17 06:03 84 21 94 04/26/17 06:01 138/78 04/26/17 05:48 86 22 94 04/26/17 05:43 128/102 04/26/17 05:36 87 25 94 04/26/17 05:10 90 04/26/17 05:06 92 24 95 04/26/17 05:02 146/ 04/26/17 04:51 83 23 94 04/26/17 04:36 99 25 94 04/26/17 04:31 130/79 04/26/17 04:21 86 18 93 04/26/17 04:17 128/78 04/26/17 04:06 84 24 92 04/26/17 04:01 128/78 04/26/17 03:51 98 22 93 Room Air 04/26/17 03:36 85 21 93 04/26/17 03:31 146/75 04/26/17 03:21 94 23 93 04/26/17 03:06 93 20 93 04/26/17 03:01 91 Room Air 04/26/17 03:01 178/98 04/26/17 02:55 91 26 92 04/26/17 02:40 98 25 97 04/26/17 02:31 131/95 04/26/17 02:25 79 23 100 04/26/17 02:10 90 22 99 04/26/17 02:01 148/79 04/26/17 01:55 84 20 100 04/26/17 01:45 152/93 04/26/17 01:40 72 20 98 04/26/17 01:25 80 21 95 04/26/17 01:10 67 22 95 Room Air 04/26/17 01:07 72 04/26/17 01:04 129/85 04/26/17 00:50 36.6 71 22 152/87 94 Room Air Physical Exam General Appearance: no apparent distress, + obese ENT: pharynx normal Neck: supple, no JVD, trachea midline Respiratory/Chest: no respiratory distress, no accessory muscle use, + decreased breath sounds (bilaterally) Cardiovascular: regular rate, rhythm, no edema, no murmur Abdomen: normal bowel sounds, non tender, soft Extremities: no pedal edema, no calf tenderness, normal capillary refill Neurologic/Psychiatric: no motor/sensory deficits, alert, oriented x 3 Skin: normal color, warm/dry, no rash Laboratory Results 04/26/17 01:42 Red Blood Count 4.62, Mean Corpuscular Volume 85.9, Mean Corpuscular Hemoglobin 29.2, Mean Corpuscular Hemoglobin Concent 34.0, Mean Platelet Volume 11.6, Neutrophils (%) (Auto) 73.3, Lymphocytes (%) (Auto) 15.3, Monocytes (%) (Auto) 10.4, Eosinophils (%) (Auto) 0.0, Basophils (%) (Auto) 0.2, Neutrophils # (Auto ) 8.85, Lymphocytes # (Auto) 1.85, Monocytes # (Auto) 1.25, Eosinophils # (Auto ) 0.00, Basophils # (Auto) 0.02 04/26/17 01:42 Test 04/26/17 01:42 White Blood Count 12.07 K/uL (4.8-10.8) Red Blood Count 4.62 M/uL (4.2-5.4) Hemoglobin 13.5 g/dL (12.0-16.0) Hematocrit 39.7 % (37-47) Mean Corpuscular Volume 85.9 fL (80-100) Mean Corpuscular Hemoglobin 29.2 pg (25-34) Mean Corpuscular Hemoglobin Concent 34.0 g/dl (32-36) Platelet Count 244 K/uL (130-400) Mean Platelet Volume 11.6 fL (7.4-10.4) Neutrophils (%) (Auto) 73.3 % Lymphocytes (%) (Auto) 15.3 % Monocytes (%) (Auto) 10.4 % Eosinophils (%) (Auto) 0.0 % Basophils (%) (Auto) 0.2 % Neutrophils # (Auto) 8.85 K/uL (1.4-6.5) Lymphocytes # (Auto) 1.85 K/uL (1.2-3.4) Monocytes # (Auto) 1.25 K/uL (0.11-0.59) Eosinophils # (Auto) 0.00 K/uL (0-0.5) Basophils # (Auto) 0.02 K/uL (0-0.2) RDW Standard Deviation 50.5 fL (36.4-46.3) RDW Coefficient of Variation 16.1 % (11.5-14.5) Immature Granulocyte % (Auto) 0.8 % Immature Granulocyte # (Auto) 0.10 K/uL (0.00-0.02) Anion Gap 6.0 mmol/L (3-11) Est Creatinine Clear Calc Drug Dose 112.9 ml/min Estimated GFR () 109.4 Estimated GFR (Non- 94.4 BUN/Creatinine Ratio 14.1 (10-20) Calcium Level 9.9 mg/dl (8.5-10.1) Magnesium Level 1.9 mg/dl (1.8-2.4) Total Bilirubin 0.3 mg/dl (0.2-1) Direct Bilirubin < 0.1 mg/dl (0-0.2) Aspartate Amino Transf (AST/SGOT) 12 U/L (15-37) Alanine Aminotransferase (ALT/SGPT) 30 U/L (12-78) Alkaline Phosphatase 68 U/L (45-117) Total Protein 7.2 gm/dl (6.4-8.2) Albumin 3.7 gm/dl (3.4-5.0) Human Chorionic Gonadotropin, Qual NEG (NEG) Assessment and Plan 41 year old female with asthma, hypothyroidism, and GERD that presents with a two-week history of worsening shortness of breath Acute asthma exacerbation - I suspect her failure is more to do with stress and going exerting herself too early going back to work than worsening pneumonia - Failed outpatient therapy with Prednisone x 2 courses and Azithromycin along with Fluticasone and Albuterol - Donnybs q3h + q2h PRN wheezing - Solu-medrol 60mg IV today and switch to prednisone tomorrow - Will continue Levaquin given allergy to penicillins - Switch fluticasone to Symbicort to add a LABA - Continue Montelukast and Destiney for allergic component - Incentive spirometry, flutter valve and Guaifenesin to help with any mucus plugging Hypothyroidism - Continue home Synthroid GERD - Continue home Ranitidine VTE Prophylaxis - SCDs - no chemical prophylaxis as she was Code - Full Disposition - continue med/surg as wheezing and short of breath on minimal exertion. Plan on d/c home tomorrow Resident Tracking Resident Involvement: Resident Care Provided Care Provided: Adult Hospital Medicine
[2017-04-26] MEDS ORDERED: MONTELUKAST SOD 10 MG TAB PO SCH (21:00)
[2017-04-26] MEDS: BUDESONIDE/FORMOTEROL FUMARATE 160/4.5 60 PUFFS/INHALER INH SCH (21:15)
[2017-04-26] MEDS: GUAIFENESIN 600 MG TABCR PO SCH (21:16)
[2017-04-26] MEDS: RANITIDINE HCL 150 MG TAB PO SCH (21:16)
[2017-04-26 23:32] VITALS: BP 122/78; PULSE 77; TEMP 36.6; O2SAT 95
[2017-04-27 00:50] VITALS: O2SAT 95
[2017-04-27 05:58] LABS: CALCIUM 9.3 mg/dl (8.5-10.1); CREATININE 0.88 mg/dl (0.60-1.20); POTASSIUM 4.3 mmol/L (3.5-5.1)
[2017-04-27 06:29] LABS: HEMOGLOBIN A1C 6.1 % (4.5-5.6)
[2017-04-27 07:10] VITALS: PULSE 87; O2SAT 97
[2017-04-27] MEDS: ALBUT/IPRATROP 3MG/0.5MG NEB 3 ML VIAL INH SCH ×3 (07:10→15:51)
[2017-04-27] MEDS: RANITIDINE HCL 150 MG TAB PO SCH (07:51)
[2017-04-27] MEDS: GUAIFENESIN 600 MG TABCR PO SCH (07:51)
[2017-04-27] MEDS: BUDESONIDE/FORMOTEROL FUMARATE 160/4.5 60 PUFFS/INHALER INH SCH (07:51)
[2017-04-27] MEDS: FEXOFENADINE HCL 180 MG TAB PO SCH (07:51)
[2017-04-27 07:52] VITALS: BP 137/90; PULSE 87; TEMP 36.8; O2SAT 97
[2017-04-27] MEDS: LEVOTHYROXINE 175 MCG TAB PO SCH (07:52)
[2017-04-27] MEDS: ACETAMINOPHEN 325 MG TAB PO PRN (07:55)
--- NOTE | 2017-04-27 09:00 | Clinical Documentation Query ---
CLINICAL DOCUMENTATION QUERY 41-y/o female who presents with an asthma exacerbation. The addition of the type of asthma will not only lend specificity to the patient's diagnosis, but may qualify as a reimbursable diagnosis for an [facility] assignment. Query #1/2 In your clinical opinion is this patient being managed for: (X) Mild persistent asthma with (acute) exacerbation ( ) Moderate Persistent Asthma with (acute) exacerbation ( ) Severe Persistent Asthma with (acute) exacerbation ( ) Not Agree ( ) Other explanation of clinical findings ( ) Unable to determine (Please Define) ( ) Need to Discuss The medical record reflects the following clinical findings, treatment, and risk factors. Clinical Indicators: Asthma unspecified with exacerbation Treatment: nebs, O2, IV solumedrol Risk Factors: Asthma Mild Persistent Asthma: People with mild persistent asthma typically have asthma symptoms that occur almost weekly, but a single controller medication is usually sufficient to gain control. Asthma severity is classified as mild persistent asthma when: *asthma symptoms occur more than 2 days per week, but not daily *wake up from asthma 3 to 4 nights per month *use rescue inhaler more than 2 days per week, but not daily *have only minor interference with daily activities *have a FEV1 greater than 80% of predicted or normal lung function most of the time Moderate Persistent Asthma: People with moderate persistent asthma typically have asthma symptoms that occur almost daily, but they are able to gain control of the asthma exacerbation with two medications. Asthma severity is classified as moderate persistent asthma when: *have asthma symptoms daily. *wake up from asthma more than one night per week, but not every night. *use rescue inhaler daily. *asthma moderately interferes with daily activities. *have a FEV1 greater than 60% but less than 80% of predicted Severe Persistent Asthma: People with severe persistent asthma typically have daily asthma symptoms despite attempting to gain control with more than 2 controller medications. Asthma severity is classified as severe persistent asthma when: *have asthma symptoms throughout the day *wake up from asthma nightly *use rescue inhaler multiple times per day *have extreme interference with daily activities *have a FEV1 less than 60% of predicted\\ NHLBI Guidelines for the Diagnosis and Management of Asthma Query #2/2 In your clinical opinion is this patient being managed for: (X ) Morbid obesity evidenced by BMI of 45.5. ( ) Not Agree ( ) Other explanation of clinical findings (Please Explain) ( ) Unable to determine (Please Define) ( ) Need to Discuss The medical record reflects the following clinical findings, treatment, and risk factors. Clinical Indicators: BMI 45.5 Treatment: Synthroid Risk Factors: hypothyroidism Please clarify and document your clinical opinion in the progress notes and discharge summary. Terms such as "probable", "suspected", "likely", "questionable", "possible", or "still to be ruled out" are acceptable. IF IN AGREEMENT, YOU MUST DOCUMENT ABOVE DIAGNOSTIC STATEMENT IN DAILY PROGRESS NOTES AND DISCHARGE SUMMARY. This document is not part of the patient's record. Thank You, Guerrero Valdivia, RN [phone]
--- NOTE | 2017-04-27 09:01 | Clinical Documentation Query ---
CLINICAL DOCUMENTATION QUERY 41-y/o female who presents with an asthma exacerbation. The addition of the type of asthma will not only lend specificity to the patient's diagnosis, but may qualify as a reimbursable diagnosis for an [facility] assignment. Query #1/2 In your clinical opinion is this patient being managed for: (x ) Mild persistent asthma with (acute) exacerbation ( ) Moderate Persistent Asthma with (acute) exacerbation ( ) Severe Persistent Asthma with (acute) exacerbation ( ) Not Agree ( ) Other explanation of clinical findings (Please Explain) ( ) Unable to determine (Please Define) ( ) Need to Discuss The medical record reflects the following clinical findings, treatment, and risk factors. Clinical Indicators: Asthma unspecified with exacerbation Treatment: nebs, O2, IV solumedrol Risk Factors: Asthma Mild Persistent Asthma: People with mild persistent asthma typically have asthma symptoms that occur almost weekly, but a single controller medication is usually sufficient to gain control. Asthma severity is classified as mild persistent asthma when: *asthma symptoms occur more than 2 days per week, but not daily *wake up from asthma 3 to 4 nights per month *use rescue inhaler more than 2 days per week, but not daily *have only minor interference with daily activities *have a FEV1 greater than 80% of predicted or normal lung function most of the time Moderate Persistent Asthma: People with moderate persistent asthma typically have asthma symptoms that occur almost daily, but they are able to gain control of the asthma exacerbation with two medications. Asthma severity is classified as moderate persistent asthma when: *have asthma symptoms daily. *wake up from asthma more than one night per week, but not every night. *use rescue inhaler daily. *asthma moderately interferes with daily activities. *have a FEV1 greater than 60% but less than 80% of predicted Severe Persistent Asthma: People with severe persistent asthma typically have daily asthma symptoms despite attempting to gain control with more than 2 controller medications. Asthma severity is classified as severe persistent asthma when: *have asthma symptoms throughout the day *wake up from asthma nightly *use rescue inhaler multiple times per day *have extreme interference with daily activities *have a FEV1 less than 60% of predicted NHLBI Guidelines for the Diagnosis and Management of Asthma Query #2/2 In your clinical opinion is this patient being managed for: ( ) Morbid obesity evidenced by BMI of 45.5. ( ) Not Agree ( ) Other explanation of clinical findings (Please Explain) ( ) Unable to determine (Please Define) ( ) Need to Discuss The medical record reflects the following clinical findings, treatment, and risk factors. Clinical Indicators: BMI 45.5 Treatment: Synthroid Risk Factors: hypothyroidism Please clarify and document your clinical opinion in the progress notes and discharge summary. Terms such as "probable", "suspected", "likely", "questionable", "possible", or "still to be ruled out" are acceptable. IF IN AGREEMENT, YOU MUST DOCUMENT ABOVE DIAGNOSTIC STATEMENT IN DAILY PROGRESS NOTES AND DISCHARGE SUMMARY. This document is not part of the patient's record. Thank You, Guerrero aVldivia, RN [phone]
[2017-04-27] MEDS ORDERED: LEVOFLOXACIN 750 MG TAB PO SCH (11:00)
[2017-04-27 11:10] VITALS: PULSE 79; O2SAT 97
[2017-04-27] MEDS ORDERED: LVQ750 PO (12:07)
[2017-04-27] MEDS ORDERED: ALBINS/ INH (12:07)
[2017-04-27] MEDS ORDERED: PRED20TA PO (12:07)
[2017-04-27] MEDS ORDERED: GFNSR600 PO (12:07)
--- NOTE | 2017-04-27 12:14 | Discharge Instructions ---
Discharge Instructions Date of Service Apr 27, 2017. Admission Reason for Admission: Acute Asthma Exacerbation, Failure Of Op Treatment Discharge Discharge Diagnosis / Problem: Asthma exacerbation Discharge Goals Goal(s): Improve disease control Activity Recommendations Activity Limitations: as noted below Exercise/Sports Limitations: gradually increase as tolerated Shower/Bathe: no limitations Driving or Machine Use: no limitations . Instructions / Follow-Up Instructions / Follow-Up You were evaluated @ [facility] for asthma exacerbation. This was treated steroids, antibiotics and nebulizers. Please continue with the treatment as an outpatient. Recommend you use the nebulizer x4/day for the next 48 hours then you can use it just as required. You improved while inpatient however this will take more than a week to fully recover and you should not go back to work until after following up with your primary care physician ( recommended appointment on 01 May). 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 Current Hospital Diet Patient's current hospital diet: Regular Diet Discharge Diet Recommended Diet: Regular Diet Pending Studies Studies pending at discharge: no Laboratory Results Hemoglobin A1c Test 04/27/17 05:15 Range/Units Estimated Average Glucose 128 mg/dl Hemoglobin A1c 6.1 H 4.5-5.6 % Medical Emergencies . Who to Call and When: Medical Emergencies: If at any time you feel your situation is an emergency, please call 911 immediately. . Non-Emergent Contact Non-Emergency issues call your: Primary Care Provider . . "Provider Documentation" section prepared by Neel Villalba. . VTE Core Measure Inpt VTE Proph given/why not?: SCD's
[2017-04-27 12:26] VITALS: BP 137/90; PULSE 79; TEMP 36.8; O2SAT 97
--- NOTE | 2017-04-27 21:13 | Discharge Summary ---
Discharge Summary Date of Service Apr 27, 2017. Discharge Summary Admission Date: Apr 26, 2017 at 05:28 Discharge Date: Apr 27, 2017 Discharge Disposition: Home Principal Diagnosis: Mild persistent asthma with acute exacerbation Immunizations: Have You Had Influenza Vaccine: N/A History of Tetanus Vaccine?: Unknown History of Pneumococcal: No History of Hepatitis B Vaccine: No Medication Reconciliation New Medications: Albuterol Sulf (Proventil 0.083% 2.5MG/3ML) 2.5 Mg/3 Ml Nebu 2.5 MG INH QID PRN for wheezing/chest tightness/cough for 7 Days, #28 EA Prednisone (Prednisone) 20 Mg Tab 1 TAB PO UD for 8 Days, #15 TAB 3 tabs daily for 2 days then 2 tabs daily for 3 days then 1 tab daily for 3 days Guaifenesin Ext Rel (Mucinex Ext Rel) 600 Mg Tabcr 1200 MG PO Q12 for 10 Days, #40 TAB Levofloxacin (Levofloxacin) 750 Mg Tab 750 MG PO DAILY@11 for 4 Days, #4 TAB Continued Medications: Albuterol Hfa (Ventolin Hfa) 200 Puffs/54687 Mcg Aers 2-4 PUFFS INH Q6H PRN for Shortness of Breath, #1 INHALER Fexofenadine Hcl (Destiney) 180 Mg Tab 180 MG PO QAM Fluticasone Propionate (Flovent Hfa) 120 Puffs/25421 Mcg Aero 2 PUFF INH BID PRN for SOB/Wheezing Ibuprofen (Advil) 200 Mg Tab 200-600 MG PO Q6H PRN for Pain, TAB Levothyroxine Sodium (Synthroid) 175 Mcg Tab 175 MCG PO QAM Montelukast Sodium (Singulair) 10 Mg Tab 10 MG PO HS Ranitidine HCl (Ranitidine HCl) 150 Mg Tab 150 MG PO DAILY Discontinued Medications: Azithromycin (Azithromycin) 250 Mg Tab 250 MG PO DAILY for 4 Days Prednisone (Prednisone) 50 Mg Tab 50 MG PO DAILY for 4 Days, TAB Discharge Exam Patient feeling better today but not yet back to baseline. Still with some shortness of breath on exertion but keen to go home. Physical Exam: General Appearance: no apparent distress, + obese Respiratory/Chest: lungs clear, normal breath sounds, no respiratory distress, no accessory muscle use Cardiovascular: regular rate, rhythm, no murmur, normal peripheral pulses Abdomen / GI: normal bowel sounds, non tender, soft Extremities: no calf tenderness, normal capillary refill, no pedal edema Neurologic/Psychiatric: no motor/sensory deficits (grossly normal), alert, oriented x 3 Skin: normal color, warm/dry, no rash Hospital Course 41 year old female with asthma, hypothyroidism, and GERD that presents with a two-week history of worsening shortness of breath Mild persistent asthma with acute exacerbation - Failed outpatient treatment suspected her failure of outpatient treatment is more to do with stress and going exerting herself too early going back to work than worsening pneumonia. - treated with Levaquin as a step up to her outpatient azithromycin regimen cover for pneumonia - Given IV steroids. Switched to prednisone. Continued prednisone taper as outpatient - Nebulizer equipment script sent - She had Symbicort for LABA as inpatient but can be switched back to her flovent as outpatient and followed up by her PCP to consider PFTs as outpatient - Continue Montelukast and Destiney for allergic component - Incentive spirometry, flutter valve and Guaifenesin to help with any mucus plugging Morbid Obesity - likely some restrictive lung disease component - follow up with PCP for weight loss advice/meds/surgery Hypothyroidism - Continue home Synthroid GERD - Continue home Ranitidine Total Time Spent: Greater than 30 minutes This includes examination of the patient, discharge planning, medication reconciliation, and communication with other providers. Discharge Instructions Please refer to the electronic Patient Visit Report (Discharge Instructions) for additional information. Follow-Up Patient to call PCP for follow up on 05/01/17. Patient should be off of work to recover until reassessed at that appointment. Additional Copies To Toribio Warner M.D. Reviewed: Pt Seen/Exam by Me History breathing much improved. minimal cough Constitutional: denies: fever General Appearance: no apparent distress Respiratory: lungs clear, no respiratory distress Cardiovascular: regular rate, rhythm Gastrointestinal: soft Neurologic/Psychiatric: alert, oriented x 3 Skin Characteristics: warm/dry Assessment/Plan Resident Physician Supervision Note: I independently interviewed and examined the patient and verified the pinto history and physical, reviewed labs and image studies, discussed the case with the resident Dr. Villalba and agree with the findings and care plan. Time spent in discharge 40 min
== END 2017-04-27 16:00 | disposition home or self-care (01) | DRG 202 ==
LOC: C.EDB 00:41 → C.4E 05:28 → ENRESERV 05:51
PROVIDERS: ADMIT Student in an Organized Health Care Education/Training Program; ATTEND Family Medicine
DX: J45.31 Mild persistent asthma with (acute) exacerbation (principal); Z68.42 Body mass index [BMI] 45.0-49.9, adult; K21.9 Gastro-esophageal reflux disease without esophagitis; E03.9 Hypothyroidism, unspecified; E66.01 Morbid (severe) obesity due to excess calories; Z87.891 Personal history of nicotine dependence; Z79.52 Long term (current) use of systemic steroids; Z79.899 Other long term (current) drug therapy

== ENCOUNTER → 2017-05-08 | Outpatient (CLI) | payer BC ==
[~2017-05-08] MED LIST changes: -AZIT-57 PO; +GFNSR600 PO; +LVQ750 PO; -PRED50TA PO
--- NOTE | 2017-05-08 14:41 | DIAGNOSTIC IMAGING REPORT ---
CHEST 2 VIEWS ROUTINE HISTORY: J18.9 Community acquired pneumonia f/u cxr [id number] COMPARISON: Chest 04/26/2017. FINDINGS: The lungs are clear. Cardiac silhouette is normal in size. No pleural effusions. No pneumothorax. IMPRESSION: No acute process. Electronically signed by: Oscar Barajas M.D. 05/08/2017 2:40 PM Dictated Date/Time: 05/08/2017 2:38 PM
== END | disposition home or self-care (01) ==
LOC: C.RAD1850 14:27
PROVIDERS: ATTEND Internal Medicine Pulmonary Disease
DX: J18.9 Pneumonia, unspecified organism (principal)

== ENCOUNTER 2017-08-01 13:23 | Emergency (ER) | payer BC ==
[~2017-08-01] VITALS: Ht 157.5 cm; Wt 114.6 kg
[2017-08-01 13:26] VITALS: TEMP 36.5; Ht 157.5 cm; Wt 114.6 kg
[2017-08-01] MEDS ORDERED: ALBUT/IPRATROP 3MG/0.5MG NEB 3 ML VIAL INH STA (13:42)
[2017-08-01] MEDS ORDERED: AZITHROMYCIN 250 MG TAB PO STA (13:42)
--- NOTE | 2017-08-01 14:08 | DIAGNOSTIC IMAGING REPORT ---
CHEST ONE VIEW PORTABLE HISTORY: 42 years-old Female sob acute shortness of breath COMPARISON: Chest radiographs 05/08/2017 TECHNIQUE: Portable AP view of the chest FINDINGS: Cardiomediastinal and hilar silhouettes are within normal limits. There is no pneumothorax, pleural effusion, focal airspace consolidation or overt pulmonary edema. The bones of the chest appear grossly intact. IMPRESSION: No acute process. The above report was generated using voice recognition software. It may contain grammatical, syntax or spelling errors. Electronically signed by: Roosevelt Morejon M.D. 08/01/2017 2:06 PM Dictated Date/Time: 08/01/2017 2:05 PM
[2017-08-01] MEDS ORDERED: ALBINS/ INH (14:11)
[2017-08-01 14:13] LABS: HEMATOCRIT 40.6 % (37-47); HEMOGLOBIN 13.6 g/dL (12.0-16.0); MEAN CELL VOLUME 88.3 fL (80-100); MEAN CORPUSCULAR HEMOGLOBIN 29.6 pg (25-34); MEAN CORPUSCULAR HGB CONC 33.5 g/dl (32-36); MEAN PLATELET VOLUME 12.5 fL (7.4-10.4); PLATELET COUNT 215 K/uL (130-400); RED CELL DISTRIBUTION WIDTH CV 14.1 % (11.5-14.5); RED CELL DISTRIBUTION WIDTH SD 45.6 fL (36.4-46.3); WHITE BLOOD COUNT 11.89 K/uL (4.8-10.8)
--- NOTE | 2017-08-01 14:23 | EMERGENCY ROOM VISIT NOTE ---
History Report prepared by Jesse: Sherrie Pineda Under the Supervision of: Dr. Manan Weathers M.D. First contact with patient: 13:37 Chief Complaint: SHORTNESS OF BREATH Stated Complaint: SOB,RT SHOULDER PAIN History of Present Illness The patient is a 42 year old female who presents to the Emergency Room with complaints of worsening shortness of breath for the past 5 days. She has a history of asthma and thinks that her symptoms are due to her asthma. She has been using her nebulizers and inhalers without any relief. The patient reports wheezing and tightness across her chest. She notes increased dry coughing. She had low-grade fevers last week but denies any more recent fevers. The patient has pain in her right shoulder blade that she rates as a 6/10 in severity. She has had this pain for the past couple of hours. She denies any modifying factors. She denies any recent injury to the shoulder. The patient is not currently on any antibiotics or steroids. She denies any personal or family history of blood clots. She denies any recent long trips. Source of History: patient Onset: 5 days ago Position: chest Symptom Intensity: 6/10 Quality: other (shortness of breath) Timing: worsening Associated Symptoms: + cough, + back pain, No fevers Review of Systems See HPI for pertinent positives & negatives. A total of 10 systems reviewed and were otherwise negative. Past Medical & Surgical Medical Problems: (1) Acute asthma exacerbation (2) Anemia (3) Bilateral tubal ligation (4) Bipolar disorder (5) section (6) Failure of outpatient treatment (7) History of - tubal ligation (8) Hypothyroidism (9) Menorrhagia (10) Tonsillectomy Surgical Problems: (1) H/O lumbar discectomy (2) S/P cholecystectomy (3) S/P tonsillectomy Family History FH: lung cancer FHx: cancer FHx: heart disease Hypertension Social History Smoking Status: Never Smoker Alcohol Use: none Drug Use: none Marital Status: Housing Status: lives with family Occupation Status: employed Current/Historical Medications Scheduled Azithromycin (Zithromax Z-Pj), 0 PO UD Fexofenadine Hcl (Destiney), 180 MG PO QAM Ipratropium-Albuterol (Combivent Respimat), 2 PUFFS INH Q4 Levothyroxine Sodium (Synthroid), 175 MCG PO QAM Montelukast Sodium (Singulair), 10 MG PO HS Prednisone (Prednisone), 0 PO DAILY Ranitidine HCl (Ranitidine HCl), 150 MG PO DAILY Scheduled PRN Albuterol Hfa (Ventolin Hfa), 2-4 PUFFS INH Q6H PRN for Shortness of Breath Albuterol Sulf (Proventil 0.083% 2.5MG/3ML), 3 ML INH QID PRN for Shortness of Breath Fluticasone Propionate (Flovent Hfa), 2 PUFF INH BID PRN for SOB/Wheezing Ibuprofen (Advil), 200-600 MG PO Q6H PRN for Pain Allergies Coded Allergies: Penicillins (Verified Allergy, Mild, HIVES, 08/01/17) Cat Dander (Verified Allergy, Unknown, UNKNOWN REACTION, 08/01/17) Dog Dander (Verified Allergy, Unknown, UNKNOWN REACTION, 08/01/17) Physical Exam Vital Signs Date Time Temp Pulse Resp B/P (MAP) Pulse Ox O2 Delivery O2 Flow Rate FiO2 08/01/17 15:40 77 20 134/91 98 Room Air 08/01/17 15:40 77 20 134/91 98 08/01/17 13:57 95 Room Air 08/01/17 13:26 36.5 79 20 95 Room Air Physical Exam GENERAL: Patient is in no acute distress. HEENT: No acute trauma, normocephalic atraumatic, mucous membranes moist, no nasal congestion, no scleral icterus. NECK: No stridor, no adenopathy, no meningismus, trachea is midline. LUNGS: Decreased breath sounds, a few scattered wheezes bilaterally, no crackles , breath sounds equal, no respiratory distress. HEART: Without murmurs gallops or rubs, regular rate and rhythm. ABDOMEN: Soft, nontender, bowel sounds positive, no hernias, no peritonitis. BACK: Tender in area of right scapula, no rash. EXTREMITIES: No cyanosis or edema, full range of motion of all the joints without pain or difficulty, no signs for acute trauma. NEUROLOGIC: Oriented x 3, no acute motor or sensory deficits, no focal weakness. SKIN: No rash, no jaundice, no diaphoresis. Medical Decision & Procedures ER Provider Diagnostic Interpretation: Radiology results as stated below per my review and radiologist interpretation: CHEST ONE VIEW PORTABLE HISTORY: 42 years-old Female sob acute shortness of breath COMPARISON: Chest radiographs 05/08/2017 TECHNIQUE: Portable AP view of the chest FINDINGS: Cardiomediastinal and hilar silhouettes are within normal limits. There is no pneumothorax, pleural effusion, focal airspace consolidation or overt pulmonary edema. The bones of the chest appear grossly intact. IMPRESSION: No acute process. The above report was generated using voice recognition software. It may contain grammatical, syntax or spelling errors. Electronically signed by: Roosevelt Morejon M.D. 08/01/2017 2:06 PM Dictated Date/Time: 08/01/2017 2:05 PM Laboratory Results 08/01/17 13:55 08/01/17 13:55 Test 08/01/17 13:55 08/01/17 14:03 Red Blood Count 4.60 M/uL (4.2-5.4) Mean Corpuscular Volume 88.3 fL (80-100) Mean Corpuscular Hemoglobin 29.6 pg (25-34) Mean Corpuscular Hemoglobin Concent 33.5 g/dl (32-36) RDW Standard Deviation 45.6 fL (36.4-46.3) RDW Coefficient of Variation 14.1 % (11.5-14.5) Mean Platelet Volume 12.5 fL (7.4-10.4) Anion Gap 3.0 mmol/L (3-11) Est Creatinine Clear Calc Drug Dose 82.9 ml/min Estimated GFR () 75.0 Estimated GFR (Non- 64.7 BUN/Creatinine Ratio 13.3 (10-20) Calcium Level 8.9 mg/dl (8.5-10.1) Bedside D-Dimer 318 ng/mlFEU (0-450) Bedside Troponin I < 0.030 ng/ml (0-0.045) Laboratory results reviewed by me. Medications Administered Medications (Trade) Dose Ordered Sig/Rafael Route Start Time Stop Time Status Last Admin Dose Admin Azithromycin (Zithromax Tab) 500 mg NOW STAT PO 08/01/17 13:42 08/01/17 13:48 DC 08/01/17 14:07 500 MG Prednisone (PredniSONE TAB) 60 mg NOW STAT PO 08/01/17 13:42 08/01/17 13:48 DC 08/01/17 14:07 60 MG Albuterol/ Ipratropium (Duoneb) 3 ml NOW STAT INH 08/01/17 13:42 08/01/17 13:48 DC 08/01/17 14:08 3 ML ECG Per My Interpretation Indication: SOB/dyspnea Rate (beats per minute): 73 Rhythm: normal sinus Findings: no ectopy, other (no ST elevation, no PVCs) ED Course 1337: The patient was evaluated in room B9. A complete history and physical exam was performed. 1342: DuoNeb 3 ml INH, Prednisone 60 mg PO, Azithromycin 500 mg PO 1508: I reassessed the patient at this time. She is feeling better and resting comfortably. I discussed the results and treatment plan with the patient. I answered all pertaining questions that she had. She expressed understanding and verbalized agreement. The patient will be discharged home. Medical Decision Differential diagnoses includes exacerbation of asthma, musculoskeletal pain, pneumothorax, pneumonia, PE, bronchitis, [place]. There is a mild leukocytosis, this could be consistent with infection or just her stress and dyspnea. No concerning anemia. No significant electrolyte abnormality or kidney failure. EKG shows a normal sinus rhythm, no acute ischemia. Cardiac enzyme testing 1 is not consistent with acute cardiac injury. Chest film does not show mediastinal widening, pneumonia or pneumothorax. The patient was given a DuoNeb, oral prednisone and oral Zithromax. The patient is not toxic or hypoxic. She is not in respiratory distress. I suspect she has an acute bronchitis with a flare of her asthma. I do think steroids, and antibiotics are indicated. The patient will also be switched to a Combivent inhaler as she has done better with this in the past. The patient was encouraged to return if worsening or not improving. She was discharged home. Medication Reconcilliation Current Medication List: was personally reviewed by me Blood Pressure Screening Patient's blood pressure: Elevated blood pressure Blood pressure disposition: Elevated BP felt to be situational Impression Primary Impression: Acute bronchitis Additional Impression: Asthma with exacerbation Scribe Attestation The scribe's documentation has been prepared under my direction and personally reviewed by me in its entirety. I confirm that the note above accurately reflects all work, treatment, procedures, and medical decision making performed by me. Departure Information Dispostion Home / Self-Care Prescriptions Prednisone (Prednisone) 20 Mg Tab 0 PO DAILY, #18 TAB 3 DAILY FOR 3 DAYS, THEN 2 DAILY FOR 3 DAYS, THEN 1 DAILY FOR 3 DAYS. Prov: Manan Weathers M.D. 08/01/17 Azithromycin (ZITHROMAX Z-PJ) 250 Mg Tab 0 PO UD, #1 PKT Prov: Manan Weathers M.D. 08/01/17 Ipratropium-Albuterol (COMBIVENT RESPIMAT) 1 Aer Aer 2 PUFFS INH Q4, #1 INH 2 Refills Prov: Manan Weathers M.D. 08/01/17 Referrals ProToribio M.D. (PCP) Forms HOME CARE DOCUMENTATION FORM, IMPORTANT VISIT INFORMATION, Work Instructions Patient Instructions My [facility] Additional Instructions try combivent 2 puffs every [address] of the ventolin start zithromax and prednisone tomorrow rest return if worsening or feeling more short of breath labs, chest xray and heart testing were all ok today Problem Qualifiers
[2017-08-01 14:28] LABS: CALCIUM 8.9 mg/dl (8.5-10.1); CREATININE 1.06 mg/dl (0.60-1.20); POTASSIUM 4.1 mmol/L (3.5-5.1)
[2017-08-01] MEDS ORDERED: AZITTAB PO (15:14)
[2017-08-01] MEDS ORDERED: PRED20TA PO (15:14)
[2017-08-01] MEDS ORDERED: IPRA1AER2 INH (15:14)
[2017-08-01 15:40] VITALS: BP 134/91; PULSE 77; O2SAT 98
== END 2017-08-01 15:43 | disposition home or self-care (01) ==
LOC: C.EDB 13:24
DX: J20.9 Acute bronchitis, unspecified (principal); J45.901 Unspecified asthma with (acute) exacerbation; D64.9 Anemia, unspecified; F31.9 Bipolar disorder, unspecified; E03.9 Hypothyroidism, unspecified; Z88.0 Allergy status to penicillin

== ENCOUNTER 2017-08-17 08:03 | Emergency (ER) | payer BC ==
[~2017-08-17] VITALS: Ht 157.5 cm; Wt 110.4 kg
[~2017-08-17 08:03] MED LIST changes: +ALBINS/ INH; -GFNSR600 PO; +IPRA1AER2 INH; -LVQ750 PO; +PRED20TA PO
[2017-08-17 08:05] VITALS: TEMP 36.7; Ht 157.5 cm; Wt 110.4 kg
[2017-08-17] MEDS ORDERED: ONDANSETRON INJ 2 MG/ML 2 ML VIAL IV STA ×2 (08:26→09:24)
[2017-08-17] MEDS ORDERED: SODIUM CHLORIDE 0.9% 1000ML 1,000 ML IV STA (08:26)
[2017-08-17 08:41] LABS: BASO % 0.3 %; BASO ABS # 0.03 K/uL (0-0.2); EOS % 7.8 %; EOS ABS # 0.92 K/uL (0-0.5); HEMATOCRIT 42.4 % (37-47); HEMOGLOBIN 14.4 g/dL (12.0-16.0); IG# 0.04 K/uL (0.00-0.02); LYMPH ABS # 1.87 K/uL (1.2-3.4); MEAN CELL VOLUME 87.1 fL (80-100); MEAN CORPUSCULAR HEMOGLOBIN 29.6 pg (25-34); MONO % 6.7 %; MONO ABS # 0.79 K/uL (0.11-0.59); NEUT % 68.9 %; NEUT ABS # 8.07 K/uL (1.4-6.5); PLATELET COUNT 212 K/uL (130-400); RED CELL DISTRIBUTION WIDTH SD 44.3 fL (36.4-46.3); WHITE BLOOD COUNT 11.72 K/uL (4.8-10.8)
[2017-08-17 09:09] LABS: ALBUMIN 3.8 gm/dl (3.4-5.0); CREATININE 0.85 mg/dl (0.60-1.20)
[2017-08-17 09:11] LABS: TOTAL PROTEIN 7.2 gm/dl (6.4-8.2)
[2017-08-17] MEDS ORDERED: ACETAMINOPHEN 500 MG TAB PO STA (09:24)
[2017-08-17] MEDS ORDERED: OPTIRAY 320 IV PRN (10:15)
--- NOTE | 2017-08-17 10:34 | DIAGNOSTIC IMAGING REPORT ---
CT OF THE ABDOMEN AND PELVIS WITH CONTRAST CLINICAL HISTORY: Emesis, diarrhea, abdominal pain. COMPARISON STUDY: CT of the abdomen and pelvis October 08, 2014 and pelvic ultrasound June 29, 2016. TECHNIQUE: Following IV administration of 94 mL of Optiray-320, axial images of the abdomen and pelvis were obtained from the lung bases to the proximal femurs. Images were reviewed in the axial, sagittal, and coronal planes. IV contrast was administered without complication. A dose lowering technique was utilized adhering to the principles of ALARA. CT DOSE: 1362.27 mGy.cm FINDINGS: There is possible fatty infiltration of the liver. No biliary ductal dilatation is identified status post cholecystectomy. Borderline splenomegaly is unchanged and CT of October 09, 2011. The kidneys, adrenal glands and pancreas are normal. A fat-containing umbilical hernia is present. There is no evidence for a bowel obstruction. The appendix is normal. There is mild sigmoid colon and rectal wall thickening with evidence for hyperemia. There is minimal adjacent infiltration. An apparent intramural fluid collection within the proximal rectum reflects the lumen and is due to tortuosity of the rectum. No abscess or free air is present. The uterus is surgically absent. Mild bladder wall thickening is noted with minimal adjacent infiltration. Mild nodularity of the inferior right rectus muscle is unchanged since exam of October 08, 2014. IMPRESSION: 1. Mild sigmoid colon and rectal wall thickening with minimal adjacent infiltration and hyperemia which favors proctocolitis. No free air or abscess. 2. Mild bladder wall thickening with minimal adjacent infiltration. This could be correlated with urinalysis to exclude cystitis. Electronically signed by: Jr Jackson M.D. 08/17/2017 10:32 AM Dictated Date/Time: 08/17/2017 10:21 AM
--- NOTE | 2017-08-17 11:59 | EMERGENCY ROOM VISIT NOTE ---
History First contact with patient: 08:09 Chief Complaint: VOMITING Stated Complaint: THROWING UP, HEADACHE, STOMACH, DIARRHEA Nursing Triage Summary: Pt presents with c/o n/v/d that started yesterday morning. H/A started today. Pt reports multiple episodes of emesis and diarrhea. History of Present Illness The patient is a 42 year old female who presents to the Emergency Room via private vehicle with complaints of "throwing up, headache, stomach, diarrhea". Patient states that she began yesterday morning with diarrhea and headache. She has had numerous episodes of watery diarrhea that of an spann in nature. She states that she felt sweats last night with low-grade fever. She also felt lightheaded and dizzy. She tried Pepto-Bismol before bed last night with minimal relief. She denies chance of noting a hysterectomy. She denies any tobacco, alcohol or illicit drug use. She also has no gallbladder. No recent antibiotic use, or blood in the stool. She denies any urinary symptoms. Review of Systems A complete 10-point Review of Systems was discussed with the patient, with pertinent positives and negatives listed in the History of Present Illness. All remaining Review of Systems questions can be considered negative unless otherwise specified. Past Medical/Surgical History Medical Problems: (1) Acute asthma exacerbation (2) Anemia (3) Bilateral tubal ligation (4) Bipolar disorder (5) section (6) Failure of outpatient treatment (7) History of - tubal ligation (8) Hypothyroidism (9) Menorrhagia (10) Tonsillectomy Surgical Problems: (1) H/O lumbar discectomy (2) S/P cholecystectomy (3) S/P tonsillectomy Family History FH: lung cancer FHx: cancer FHx: heart disease Hypertension Social History Smoking Status: Never Smoker Alcohol Use: none Drug Use: none Marital Status: Housing Status: lives with family Occupation Status: employed Current/Historical Medications Scheduled Fexofenadine Hcl (Destiney), 180 MG PO QAM Ipratropium-Albuterol (Combivent Respimat), 2 PUFFS INH Q4 Levothyroxine Sodium (Synthroid), 175 MCG PO QAM Montelukast Sodium (Singulair), 10 MG PO HS Ondasetron Odt (Zofran Odt), 4 MG SL Q6H Ranitidine HCl (Ranitidine HCl), 150 MG PO DAILY Scheduled PRN Albuterol Hfa (Ventolin Hfa), 2-4 PUFFS INH Q6H PRN for Shortness of Breath Albuterol Sulf (Proventil 0.083% 2.5MG/3ML), 3 ML INH QID PRN for Shortness of Breath Fluticasone Propionate (Flovent Hfa), 2 PUFF INH BID PRN for SOB/Wheezing Ibuprofen (Advil), 200-600 MG PO Q6H PRN for Pain Physical Exam Vital Signs Date Time Temp Pulse Resp B/P (MAP) Pulse Ox O2 Delivery O2 Flow Rate FiO2 08/17/17 12:23 70 16 114/77 95 Room Air 08/17/17 11:35 63 16 128/84 94 Room Air 08/17/17 09:36 70 18 123/68 96 Room Air 08/17/17 08:05 36.7 72 16 133/74 95 Room Air Physical Exam VITAL SIGNS - Vital signs and nursing notes were reviewed. Stable. GENERAL -42-year-old female appearing her stated age who is in no acute distress. Communicates well with provider and answers questions appropriately. SKIN - No meningeal or petechial rash. She does have a small erythematous slightly raised subcentimeter in size few spots on the right flank. No herpetic lash. Small pimples noted. HEAD - NC/AT. EYES - PERRL with EOMI bilaterally. Sclera anicteric. EARS - No deformities of external structures noted on gross examination bilaterally. NOSE - Midline and without cyanosis. No epistaxis or purulent drainage noted. MOUTH/OROPHARYNX - Without perioral cyanosis. Buccal mucosa pink and moist and without leukoplakia. Tongue midline with equal elevation of palate bilaterally. No tonsillar hypertrophy, erythema, or exudates noted. There dentition noted. NECK - Neck with FROM. Supple to palpation. No meningismus. LUNGS - Chest wall symmetric without accessory muscle use, intercostals retractions, or central cyanosis. Normal vesicular breath sounds CTA B/L. No wheezes, rales, or rhonchi appreciated. CARDIAC - RRR with S1/S2. No murmur, rubs, or gallops appreciated. ABDOMEN - Abdominal contour normal without pulsations or visible masses. BS normoactive all four quadrants. There is guarding and tenderness appreciated in the right lower quadrant region with palpation. No palpable masses, hepatosplenomegaly, or ascites noted. EXTREMITIES - No clubbing or peripheral cyanosis. No pretibial edema present. + 5/5 strength noted in UE/LE bilaterally. NEUROLOGIC - Cranial nerves II through XII grossly intact. Sensory intact to light touch throughout. PSYCH - A&O, and cooperates fully with examiner. Pt is very pleasant and interacts well with examiner. Medical Decision & Procedures ER Provider Diagnostic Interpretation: CT OF THE ABDOMEN AND PELVIS WITH CONTRAST CLINICAL HISTORY: Emesis, diarrhea, abdominal pain. COMPARISON STUDY: CT of the abdomen and pelvis October 08, 2014 and pelvic ultrasound June 29, 2016. TECHNIQUE: Following IV administration of 94 mL of Optiray-320, axial images of the abdomen and pelvis were obtained from the lung bases to the proximal femurs. Images were reviewed in the axial, sagittal, and coronal planes. IV contrast was administered without complication. A dose lowering technique was utilized adhering to the principles of ALARA. CT DOSE: 1362.27 mGy.cm FINDINGS: There is possible fatty infiltration of the liver. No biliary ductal dilatation is identified status post cholecystectomy. Borderline splenomegaly is unchanged and CT of October 09, 2011. The kidneys, adrenal glands and pancreas are normal. A fat-containing umbilical hernia is present. There is no evidence for a bowel obstruction. The appendix is normal. There is mild sigmoid colon and rectal wall thickening with evidence for hyperemia. There is minimal adjacent infiltration. An apparent intramural fluid collection within the proximal rectum reflects the lumen and is due to tortuosity of the rectum. No abscess or free air is present. The uterus is surgically absent. Mild bladder wall thickening is noted with minimal adjacent infiltration. Mild nodularity of the inferior right rectus muscle is unchanged since exam of October 08, 2014. IMPRESSION: 1. Mild sigmoid colon and rectal wall thickening with minimal adjacent infiltration and hyperemia which favors proctocolitis. No free air or abscess. 2. Mild bladder wall thickening with minimal adjacent infiltration. This could be correlated with urinalysis to exclude cystitis. Electronically signed by: Jr Jackson M.D. 08/17/2017 10:32 AM Dictated Date/Time: 08/17/2017 10:21 AM Laboratory Results 08/17/17 08:17 Red Blood Count 4.87, Mean Corpuscular Volume 87.1, Mean Corpuscular Hemoglobin 29.6, Mean Corpuscular Hemoglobin Concent 34.0, Mean Platelet Volume 12.0, Neutrophils (%) (Auto) 68.9, Lymphocytes (%) (Auto) 16.0, Monocytes (%) (Auto) 6.7, Eosinophils (%) (Auto) 7.8, Basophils (%) (Auto) 0.3, Neutrophils # (Auto) 8.07, Lymphocytes # (Auto) 1.87, Monocytes # (Auto) 0.79, Eosinophils # (Auto) 0.92, Basophils # (Auto) 0.03 08/17/17 08:17 Test 08/17/17 08:17 08/17/17 09:24 White Blood Count 11.72 K/uL (4.8-10.8) Red Blood Count 4.87 M/uL (4.2-5.4) Hemoglobin 14.4 g/dL (12.0-16.0) Hematocrit 42.4 % (37-47) Mean Corpuscular Volume 87.1 fL (80-100) Mean Corpuscular Hemoglobin 29.6 pg (25-34) Mean Corpuscular Hemoglobin Concent 34.0 g/dl (32-36) Platelet Count 212 K/uL (130-400) Mean Platelet Volume 12.0 fL (7.4-10.4) Neutrophils (%) (Auto) 68.9 % Lymphocytes (%) (Auto) 16.0 % Monocytes (%) (Auto) 6.7 % Eosinophils (%) (Auto) 7.8 % Basophils (%) (Auto) 0.3 % Neutrophils # (Auto) 8.07 K/uL (1.4-6.5) Lymphocytes # (Auto) 1.87 K/uL (1.2-3.4) Monocytes # (Auto) 0.79 K/uL (0.11-0.59) Eosinophils # (Auto) 0.92 K/uL (0-0.5) Basophils # (Auto) 0.03 K/uL (0-0.2) RDW Standard Deviation 44.3 fL (36.4-46.3) RDW Coefficient of Variation 14.0 % (11.5-14.5) Immature Granulocyte % (Auto) 0.3 % Immature Granulocyte # (Auto) 0.04 K/uL (0.00-0.02) Anion Gap 6.0 mmol/L (3-11) Est Creatinine Clear Calc Drug Dose 101.0 ml/min Estimated GFR () 98.0 Estimated GFR (Non- 84.5 BUN/Creatinine Ratio 9.0 (10-20) Calcium Level 9.0 mg/dl (8.5-10.1) Magnesium Level 1.9 mg/dl (1.8-2.4) Total Bilirubin 0.8 mg/dl (0.2-1) Aspartate Amino Transf (AST/SGOT) 11 U/L (15-37) Alanine Aminotransferase (ALT/SGPT) 26 U/L (12-78) Alkaline Phosphatase 78 U/L (45-117) Total Protein 7.2 gm/dl (6.4-8.2) Albumin 3.8 gm/dl (3.4-5.0) Globulin 3.4 gm/dl (2.5-4.0) Albumin/Globulin Ratio 1.1 (0.9-2) Lipase 86 U/L (73-393) Urine Color DK YELLOW Urine Appearance CLOUDY (CLEAR) Urine pH 5.0 (4.5-7.5) Urine Specific Beverly 1.024 (1.000-1.030) Urine Protein NEG (NEG) Urine Glucose (UA) NEG (NEG) Urine Ketones NEG (NEG) Urine Occult Blood NEG (NEG) Urine Nitrite NEG (NEG) Urine Bilirubin NEG (NEG) Urine Urobilinogen NEG (NEG) Urine Leukocyte Esterase NEG (NEG) Urine WBC (Auto) 5-10 /hpf (0-5) Urine RBC (Auto) 5-10 /hpf (0-4) Urine Hyaline Casts (Auto) 5-10 /lpf (0-5) Urine Epithelial Cells (Auto) >30 /lpf (0-5) Urine Bacteria (Auto) 2+ (NEG) Urine Test NEG (NEG) Date/Time Source Procedure Growth Status 08/17/17 09:24 Stool C.difficile Toxin B Gene (PCR) - Final No C. difficile toxin B gene detected Complete 08/17/17 09:24 Urine , Clean Catch Urine Culture - Final MORE THAN THREE TYPES OF ORGANISMS VA... Complete Medications Administered Medications (Trade) Dose Ordered Sig/Rafael Route Start Time Stop Time Status Last Admin Dose Admin Sodium Chloride 1,000 ml @ 999 mls/hr Q1H1M STAT IV 08/17/17 08:26 08/17/17 09:26 DC 08/17/17 08:26 999 MLS/HR Ondansetron HCl (Zofran Inj) 4 mg NOW STAT IV 08/17/17 08:26 08/17/17 08:33 DC 08/17/17 08:40 4 MG Acetaminophen (Tylenol Tab) 500 mg NOW STAT PO 08/17/17 09:24 08/17/17 09:25 DC 08/17/17 09:32 500 MG Ondansetron HCl (Zofran Inj) 4 mg NOW STAT IV 08/17/17 09:24 08/17/17 09:25 DC 08/17/17 09:32 4 MG Medical Decision Patient was seen and evaluated as above in room A2. Review was performed of nursing notes and vital signs. After obtaining a thorough history and physical examination the above work up was performed. She presents to us today with vomiting, headache, stomach pain and diarrhea. She is nontoxic on exam. I did elect to obtain baseline labs. CBC reveals slight leukocytosis of 11.72. No anemia. Metabolic panel reveals no evidence of kidney or liver failure. Lipase normal. Urine reveals white blood cells, red blood cells, epithelial cells that are greater than 30 and 2+ urine bacteria. She has no urinary symptoms and given this likely contaminated sample I will await culture. Urine test was negative. Stool studies were obtained. I did elect to obtain a CT scan of the patient's abdomen and pelvis secondary to on repeat examination she had persistence of the right lower quadrant guarding and tenderness. Results as above. She does appear to have a proctocolitis. This is likely secondary to virus. She is to initiate bland diet and follow with the family doctor or return with worsening. Again stool cultures pending. The patient was educated upon management, had questions answered prior to discharge , and was discharged home in good condition. While here she was given Tylenol for pain and Zofran for nausea and fluids. She will be given a short course of Zofran for nausea at home. Case was discussed with the attending physician. In the evaluation and treatment of this patient the following differential diagnoses were entertained: C. difficile colitis, viral gastroenteritis, diverticulitis, appendicitis, among others. Impression Primary Impression: Nausea, vomiting, and diarrhea Additional Impression: Colitis Departure Information Dispostion Home / Self-Care Condition GOOD Prescriptions Ondasetron Odt (ZOFRAN ODT) 4 Mg Tab 4 MG SL Q6H for Nausea, #6 TAB Prov: Marcus Ruiz PA-C 08/17/17 Referrals Toribio Warner M.D. (PCP) Rayna Talavera, DO Patient Instructions My [facility] Additional Instructions You have been treated in the Emergency Department your Abdominal Pain. Laboratory results and imaging studies have ruled out any emergent causes for your abdominal pain which would warrant admission or surgery. You have been prescribed Zofran to be used for any nausea or vomiting. Take as prescribed. For pain control, you can use the following [id number] medicines (if >12 yo): - Regular strength (325mg/tab) Tylenol (acetaminophen) 2 tabs every 4-6 hours as needed. Do not exceed 12 tablets in a 24 hour period. Avoid taking more than 3 grams (3000 mg) of Tylenol per day. This includes any other sources of acetaminophen you may take on a regular basis. - Regular strength (200 mg/tab) Advil (ibuprofen) 1-2 tabs every 4-6 hours as needed. Do not exceed a dose of 3200 mg per day. Please consume a bland diet for the next few days. Drink plenty of water and stay well hydrated. As with any trip to the Emergency Department, you should follow-up with your Primary Care Provider from today's visit. Return to the emergency department if your symptoms persist despite treatment plan outlined above or if the following symptoms occur: increased fevers, chills , worsening nausea/vomiting, blood in your stool or urine. CT OF THE ABDOMEN AND PELVIS WITH CONTRAST CLINICAL HISTORY: Emesis, diarrhea, abdominal pain. COMPARISON STUDY: CT of the abdomen and pelvis October 08, 2014 and pelvic ultrasound June 29, 2016. TECHNIQUE: Following IV administration of 94 mL of Optiray-320, axial images of the abdomen and pelvis were obtained from the lung bases to the proximal femurs. Images were reviewed in the axial, sagittal, and coronal planes. IV contrast was administered without complication. A dose lowering technique was utilized adhering to the principles of ALARA. CT DOSE: 1362.27 mGy.cm FINDINGS: There is possible fatty infiltration of the liver. No biliary ductal dilatation is identified status post cholecystectomy. Borderline splenomegaly is unchanged and CT of October 09, 2011. The kidneys, adrenal glands and pancreas are normal. A fat-containing umbilical hernia is present. There is no evidence for a bowel obstruction. The appendix is normal. There is mild sigmoid colon and rectal wall thickening with evidence for hyperemia. There is minimal adjacent infiltration. An apparent intramural fluid collection within the proximal rectum reflects the lumen and is due to tortuosity of the rectum. No abscess or free air is present. The uterus is surgically absent. Mild bladder wall thickening is noted with minimal adjacent infiltration. Mild nodularity of the inferior right rectus muscle is unchanged since exam of October 08, 2014. IMPRESSION: 1. Mild sigmoid colon and rectal wall thickening with minimal adjacent infiltration and hyperemia which favors proctocolitis. No free air or abscess. 2. Mild bladder wall thickening with minimal adjacent infiltration. This could be correlated with urinalysis to exclude cystitis. Electronically signed by: Jr Jackson M.D. 08/17/2017 10:32 AM Dictated Date/Time: 08/17/2017 10:21 AM Problem Qualifiers
[2017-08-17] MEDS ORDERED: ONDA4TAB10 SL (12:08)
[2017-08-17 12:23] VITALS: BP 114/77; PULSE 70; O2SAT 95
== END 2017-08-17 12:25 | disposition home or self-care (01) ==
LOC: C.EDB 08:04 → C.EDA 12:25
DX: R11.2 Nausea with vomiting, unspecified (principal); R19.7 Diarrhea, unspecified; K52.9 Noninfective gastroenteritis and colitis, unspecified; J45.909 Unspecified asthma, uncomplicated; F31.9 Bipolar disorder, unspecified; E03.9 Hypothyroidism, unspecified

== ENCOUNTER 2017-11-25 07:03 | Emergency (ER) | payer BC ==
[~2017-11-25] VITALS: Ht 157.5 cm; Wt 112.9 kg
[~2017-11-25 07:03] MED LIST changes: +ONDA4TAB10 SL; -PRED20TA PO
[2017-11-25 07:06] VITALS: TEMP 36.7; Ht 157.5 cm; Wt 112.9 kg
--- NOTE | 2017-11-25 07:52 | EMERGENCY ROOM VISIT NOTE ---
History Report prepared by Jesse: Per Germain Under the Supervision of: Dr. Sheri Vann M.D. First contact with patient: 07:25 Chief Complaint: EYE ASSESSMENT Stated Complaint: blurred vision,pain,swelling History of Present Illness The patient is a 42 year old female who presents to the Emergency Room with complaints of constant right eye beginning two days ago. The patient states she was evaluated by her PCP two days ago and diagnosed with pink eye. She reports she was given Cipro drops, and she has been using them every two hours. The patient notes her symptoms have not been getting better, and her right eye was severely blurred last night. She states it feels better when the lights are off. The patient reports she has felt warm, and she denies recorded fevers. She notes it feels as if her eye is swollen. The patient states she had a root canal performed on the upper right side two days prior to the onset of her eye discomfort. She reports she has an eye doctor at [facility]. 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 Source of History: patient Onset: two days ago Position: eye (right) Timing: constant Modifying Factors (Worsening): other (having the lights on) Associated Symptoms: No fevers Note: Associated symptoms: blurred vision, feeling warm Review of Systems See HPI for pertinent positives & negatives. A total of 10 systems reviewed and were otherwise negative. Past Medical & Surgical Medical Problems: (1) Acute asthma exacerbation (2) Anemia (3) Bilateral tubal ligation (4) Bipolar disorder (5) section (6) Failure of outpatient treatment (7) History of - tubal ligation (8) Hypothyroidism (9) Menorrhagia (10) Tonsillectomy Surgical Problems: (1) H/O lumbar discectomy (2) S/P cholecystectomy (3) S/P tonsillectomy Family History FH: lung cancer FHx: cancer FHx: heart disease Hypertension Social History Smoking Status: Never Smoker Alcohol Use: none Drug Use: none Marital Status: Housing Status: lives with family Occupation Status: employed Current/Historical Medications Scheduled Cyclopentolate Hcl (Cyclogyl 1% Oph), 1 DROP OPR BID Fexofenadine Hcl (Destiney), 180 MG PO QAM Ipratropium-Albuterol (Combivent Respimat), 2 PUFFS INH Q4 Levothyroxine Sodium (Synthroid), 175 MCG PO QAM Montelukast Sodium (Singulair), 10 MG PO HS Ondasetron Odt (Zofran Odt), 4 MG SL Q6H Prednisolone Acetate (Ophth) (Pred Forte 1% Oph), 1 DROPS OPR QID Ranitidine HCl (Ranitidine HCl), 150 MG PO DAILY Scheduled PRN Albuterol Hfa (Ventolin Hfa), 2-4 PUFFS INH Q6H PRN for Shortness of Breath Albuterol Sulf (Proventil 0.083% 2.5MG/3ML), 3 ML INH QID PRN for Shortness of Breath Fluticasone Propionate (Flovent Hfa), 2 PUFF INH BID PRN for SOB/Wheezing Ibuprofen (Advil), 200-600 MG PO Q6H PRN for Pain Allergies Coded Allergies: Penicillins (Verified Allergy, Mild, HIVES, 08/17/17) Cat Dander (Verified Allergy, Unknown, UNKNOWN REACTION, 08/17/17) Dog Dander (Verified Allergy, Unknown, UNKNOWN REACTION, 08/17/17) Physical Exam Vital Signs Date Time Temp Pulse Resp B/P (MAP) Pulse Ox O2 Delivery O2 Flow Rate FiO2 11/25/17 08:17 71 18 141/88 98 11/25/17 07:06 36.7 77 18 138/90 97 Right Eye Acuity: 20/70 Left Eye Acuity: 20/70 Physical Exam Vital signs reviewed. General: Well-appearing 42 year old female, in no significant distress. HEENT: No appreciable swelling to the face. No swelling or fluid collection appreciable to the maxillary teeth. Irritation to the sclera of the right eye with a ciliary flush. Discomfort with pupillary light reflex. No appreciable discharge. Remaining eye exam deferred to Hemanth Hernandez PA-C. Neck supple. Atraumatic. Cardiovascular: Regular rate and rhythm, no extra sounds. Pulmonary: Clear to auscultation bilaterally, normal work of breathing. Abdomen: Soft, nontender, nondistended, positive bowel sounds. Musculoskeletal: Atraumatic, no peripheral edema. Neurologic: Patient awake alert and oriented x 3 Skin: Warm, dry, no rash. Medical Decision & Procedures ED Course 726: Past medical records reviewed. The patient was evaluated in room A11B. A complete history and physical examination was performed. 0745: The patient's slit-lamp exam was performed by my PA, Hemanth Hernandez PA-C. We discussed the exam results and paged ophthalmology. Please refer to Hemanth Hernandez's note for further details. 0805: I discussed the consult with Dr. Cage with Hemanth Hernandez PA-C. Dr. Cage recommends the patient continue the Cipro drops as prescribe. He also recommends she start Cyclogyl 1 drop BID and Prednisolone 1% [address] Cage suggests NSAIDs for pain medication versus narcotics. He will evaluate the patient in the office on Monday. If the patient's symptoms worsen, she should call the office tomorrow for sooner evaluation. 0814: Upon reevaluation, the patient appeared to have improvement of her symptoms. I discussed findings with her. She verbalized agreement of the treatment plan. The patient was discharged home. Medical Decision The patient is a 42 year old female who presents to the ED with complaints of constant right eye pain beginning two days ago. Differentials include: conjunctivitis, corneal abrasion, foreign body, glaucoma, iritis. Based on the patient's presentation and ophthalmologic findings, I suspect the patient is suffering from an iritis. Visual acuity is intact bilaterally. Case was discussed with ophthalmology, Dr. Cage. He has made recommendations for Cyclogyl, prednisolone topically. NSAIDs are recommended for pain control. Patient was given prescriptions for these medications and advised to continue the Cipro drops. She will follow-up with Dr. Cage in the office this week. She will return to the ED for worsening of symptoms or any medical concerns. Medication Reconcilliation Current Medication List: was personally reviewed by me Blood Pressure Screening Patient's blood pressure: Elevated blood pressure Blood pressure disposition: Elevated BP felt to be situational Impression Primary Impression: Iritis Scribe Attestation The scribe's documentation has been prepared under my direction and personally reviewed by me in its entirety. I confirm that the note above accurately reflects all work, treatment, procedures, and medical decision making performed by me. Departure Information Dispostion Home / Self-Care Prescriptions Cyclopentolate Hcl (CYCLOGYL 1% OPH) 1 % Beverley 1 DROP OPR BID for 7 Days, #1 BTL Prov: Sheri Vann M.D. 11/25/17 Prednisolone Acetate (Ophth) (PRED FORTE 1% OPH) 1 % Nevaeh 1 DROPS OPR QID, #5 ML Prov: Sheri Vann M.D. 11/25/17 Referrals Pro,Toribio Goldstein M.D. (PCP) Raj Cage MD Forms HOME CARE DOCUMENTATION FORM, IMPORTANT VISIT INFORMATION, WORK / SCHOOL INSTRUCTIONS Patient Instructions ED Iritis, [facility] Additional Instructions Diagnosis: Iritis Ibuprofen 600 mg every 6 hours as needed for pain with food. Continue Cipro drops as prescribed. Prednisolone 1% solution 1 drop 4 times daily to the right eye. Cyclogyl 1 drop to the right eye twice daily. If symptoms worsen, return to the emergency department otherwise contact Dr. Cage of ophthalmology first thing Monday for follow-up appointment. Return to the emergency department for worsening of symptoms or any medical concerns.
[2017-11-25] MEDS ORDERED: CYCL1SOL OPR (08:09)
[2017-11-25] MEDS ORDERED: PRED1SUS3 OPR (08:09)
[2017-11-25] MEDS ORDERED: IBUPROFEN 600 MG TAB PO STA (08:12)
[2017-11-25 08:17] VITALS: BP 141/88; PULSE 71; O2SAT 98
--- NOTE | 2017-11-25 08:21 | EMERGENCY ROOM VISIT NOTE ---
ED Visit Note Emergency Department Note I was asked to see Ms. Nazario by Dr. Vann, emergency medicine, for slit- lamp examination and sonography related to right eye pain. Please see her notes and orders for full information about her ED visit. Examination: No facial trauma noted. PERRLA. EOMI without nystagmus. Sclera is generally injected with hyperemia of the peripheral vessels around the iris. These vessels were not engorged. Light sensitivity was noted. No drainage was noted. No foreign bodies were noted under the eyelids are embedded in the cornea. The anterior chamber was clear and I did not appreciate any cells or flare. On slit lamp examination with staining there was no corneal defects noted. Ocular pressure on the right was 11.3 average and ocular pressure on the left was 12.3 on average. Visual acuity: Right 20/70 without corrective lenses, Left 20/70 without corrective lenses. Patient's case was consulted with Dr. Brigida Cage, enrichment director. He recommended 1% Prednisolone ophthalmic drops 1 drop 4 times a day, Cyclogyl 1 drop 2 times a day, continued Cipro eyedrops as previously prescribed, anti- inflammatories for pain control. Additionally he asked the patient to call the office tomorrow if pain or symptoms worsening and he would see the patient. If not she could call the office on Monday morning and he would see her in the office on Monday for follow -up. This information was given to Dr. Vann for her notes and discharge instructions.
== END 2017-11-25 08:18 | disposition home or self-care (01) ==
LOC: C.EDB 07:05 → C.EDA 08:18
DX: H20.9 Unspecified iridocyclitis (principal); J45.909 Unspecified asthma, uncomplicated; E03.9 Hypothyroidism, unspecified; Z79.899 Other long term (current) drug therapy; Z79.51 Long term (current) use of inhaled steroids; Z88.0 Allergy status to penicillin; Z91.09 Other allergy status, other than to drugs and biological substances

== ENCOUNTER 2022-05-23 23:09 | Inpatient (IN) ==
[2022-05-23] MEDS ORDERED: ALBUT/IPRATROP 3MG/0.5MG NEB 3 ML VIAL NEB STA (23:24)
[2022-05-23] MEDS ORDERED: methylPREDNISolone 125 MG/2 ML VIAL IV STA (23:24)
--- NOTE | 2022-05-23 23:28 | Emergency Department Note ---
Impression & Plan Dyspnea, Respiratory syncytial virus (RSV), Asthma exacerbation ED Provider Note ED Provider Note NAME: NISHA GAMEZ AGE:46 SEX: Female : 1975 ARRIVES VIA: Private vehicle INFORMANT: Patient ED PROVIDER(s): Leatha Santos DO CHIEF COMPLAINT: Increased trouble breathing HPI: This is a 46-year-old female who presents emergency department due to concern for increased trouble breathing. Patient states she was seen and evaluated here last night and diagnosed with RSV. Patient states she does have a history of asthma additionally and has previously been hospitalized for asthma. Patient states she has had worsening difficulty breathing throughout the day despite using her home MDI and nebulizer treatments. She states she was also taking Mucinex and Excedrin for her other symptoms including nasal conges tion, rhinorrhea, sore throat and cough. She states she did have some mild loose stools this evening, no other overt diarrhea no vomiting. PAST MEDICAL HISTORY:See Below PAST SURGICAL HISTORY:See Below FAMILY HISTORY:See Below SOCIAL HISTORY:See Below HOME MEDICATIONS:See Below ALLERGIES:See Below VITALS:See Below PHYSICAL EXAMINATION: GENERAL: alert, well appearing, well nourished, no distress, non-toxic EYE EXAM: normal conjunctiva, PERRL and EOM's grossly intact OROPHARYNX: no exudate, no erythema, lips, buccal mucosa, and tongue normal and mucous membranes are moist NECK: supple, no nuchal rigidity, no adenopathy, non-tender LUNGS: Clear to auscultation. Normal chest wall mechanics, no w/r/r HEART: no murmurs, S1 normal and S2 normal ABDOMEN: abdomen soft, non-tender, normo-active bowel sounds, no masses, no rebound or guarding. BACK: Back is symmetrical on inspection and there is no deformity, no midline tenderness, no CVA tenderness. SKIN: no rashes, petechiae, orbruising UPPER EXTREMITIES: upper extremities are grossly normal. FROM, nml pulses b/l. LOWER EXTREMITIES: No pitting edema. FROM, nml pulses b/l. NEURO EXAM: Normal sensorium, cranial nerves II-XII grossly intact, normal speech, no facial droop,nogross weakness of arms, no gross weakness of legs. Gross sensation intact. No ataxia. Vital Signs: reviewed and remarkable Differential Diagnosis: Asthma exacerbation, viral URI, CAP, pleural effusion, CHF, deep space infection, foreign body, aspiration, as well as others were considered MEDICAL DECISION MAKING: This is a 46-year-old female with a history of asthma and a recent diagnosis of RSV. Patient presents complaining of increased dyspnea and wheezing despite use of home nebs/MDIs as well as Mucinex and OTC medications for her URI symptoms. Patient afebrile and hemodynamically stable. Slightly increased work of breathing although no overt hypoxia. Patient found to have bilateral wheezing and decreased breath sounds initially. Labs drawn and sent, IV established, chest x-ray performed. EKG obtained and interpreted by me as reassuring. Chest x-ray reviewed by me without any acute changes compared to her prior. After 2 initial DuoNeb treatments, patient had no reported improvement and had diffuse bilateral expiratory wheezing yet. She was given IV Solu-Medrol, IV magnesium, and was then given a continuous hour-long nebulizer treatment. Patient was noted to be hypoxic into the mid 80s when asleep and was noted to have snoring. I suspect she may have an underlying component of obstructive sleep apnea. After continuous nebulizer treatment was completed, patient still had bilateral wheezing and reported no improvement of symptoms. Patient did have slightly improved work of breathing, and when awake was not overtly hypoxic or struggling to breathe. Given reassuring EKG and negative troponin I do not suspect cardiac etiology. No prior history or recent risk factors to suggest PE. No evidence of pneumonia on chest x-ray. I suspect asthma exacerbation secondary to current RSV upper respiratory infection. Case discussed with hospitalist for additional evaluation and management. At this time I did not feel patient required CT of the chest. She was given additional IV fluids. Patient made aware of all r esults, verbalized understanding, and was in agreement with the plan. Consultation(s): 0408: Discussed with Dr. Singh, [facility] hospitalist service. ER Treatment Provided: See below 0056: Patient states no significant improvement after initial DuoNeb. 0145: Patient still with diffuse expiratory wheezing bilaterally. 0342: Patient completed hour-long nebulizer. Patient still with expiratory wheezing bilaterally although slightly improved compared to prior exam. Patient noted when asleep to drop her oxygen saturations to the mid 80s and was noted to be snoring. She denies any history of RUADEL. Patient states she still feels as though she cannot take a deep breath. Diagnostics Interpreted By Me: -ECG: Normal sinus rhythm at 78, normal QRS and QTc, normal axis, no acute ST/T wave changes -Cardiac Monitoring: An order was placed for continuous cardiac monitoring. The monitor shows a rate of 102 with sinus tachycardia rhythm. -Laboratory studies: As stated above and show below. -Imaging studies: X-ray Chest: A single view study of the chest was reviewed and was negative for cardiomegaly, focal infiltrate, effusion, pulmonary edema, or wide mediastinum. Triage Nursing Note Reviewed Prior/Outside Records Reviewed Procedures: [] Critical Care: Critical care of 44 min performed to assess and manage high likelihood of life- threatening dyspnea, involving labs and imaging performed with assessment to evaluate dyspnea and asthma exacerbation diagnosis with frequent reassessment. This time includes bedside time, treatment discussions with patient/family/consultants, documentation time and excludes procedure time. Past Med/Surg History Medical History Anemia no hx blood transfusions Asthma stable Bipolar affective disorder, current episode manic no meds Chondromalacia of knee Gastritis GERD without esophagitis controlled Hypothyroidism Non compliance w medication regimen Obstructive sleep apnea, adult + snoring, diagnosed with "mild" RAUDEL, considering repeat sleep study/no device prescribed based on initial sleep study per patient Osteoarthritis Surgical History History of bilateral tubal ligation History of section x2 History of cholecystectomy History of esophagogastroduodenoscopy (EGD) History of lumbar discectomy History of robot-assisted laparoscopic hysterectomy with bilateral salphingectomy: 01/02/17: Grade view 1, MAC#3, ETT 7.5 at [facility] History of tonsillectomy and adenoidectomy History of wisdom tooth extraction Status post right foot surgery Family History Unknown Cancer Mother Breast cancer LVAD (left ventricular assist device) present Cancer Myocardial infarction Father Gout Hypertension Son ADHD (attention deficit hyperactivity disorder) Other No family history of adverse response to anesthesia Denies family history of Ovarian cancer Prostate cancer Lung cancer Colorectal cancer Stroke Social History Smoking Status: Current every day smoker Tobacco Type: Cigarettes Age Started Using Tobacco: 18; Age Quit Using Tobacco: 32; packs per day: 1; Cigarettes Per Day: 20 daily (tobacco use x 15 years); Second Hand Exposure: Yes (father smoked); Hx Alcohol Use: No Hx Substance Use: No Preferred Language: Barbadian Communication Ability: Effective Visual Impairment: No Limitations Hearing Ability: Normal Aesthetics Instructor Required: No Beliefs That Will Affect Care: None marital status: Current Living Situation: Spouse current occupational status: employed current occupation: [employer] Feels Safe at Home: Yes Childhood Exposure to Second-Hand Smoke: Yes (father) Assistive Devices: Contacts and Glasses Allergies Allergies Allergy/AdvReac Type Severity Reaction Status Date / Time cat dander Allergy Intermediate congestion Verified 06/03/21 09:42 dog dander Allergy Intermediate congestion Verified 06/03/21 09:42 Penicillins Allergy Mild hives Verified 06/03/21 09:42 acetaminophen [From Tylenol] AdvReac Intermediate Gastrointestinal Verified 06/03/21 09:42 Upset ibuprofen AdvReac Intermediate Gastrointestinal Verified 06/03/21 09:42 Upset cephalexin AdvReac Mild upset Verified 06/03/21 09:42 stomach Home Meds Previous Rx's Medication Instructions Recorded ipratropium 20 mcg-albuterol 100 1 puff inhalation Q6H PRN 06/03/21 mcg/actuation mist for inhalation Shortness Of Breath Or Wheezing #3 (Combivent Respimat) Inhalers montelukast 10 mg tablet 10 mg PO QAM PRN Allergy Symptoms 10/12/21 #90 tabs albuterol sulfate 90 mcg/actuation 2 puff inhalation Q6H PRN 05/23/22 aerosol inhaler (ProAir HFA) shortness of breath or wheezing #8.5 grams Results & Data (ED) Vital Signs Vital Signs - 24 hr 05/23/22 23:11 05/24/22 00:21 05/24/22 00:20 Temperature 37.1 C Temperature Source Temporal Artery Scan Pulse Rate 78 79 Pulse Rate [Finger] Respiratory Rate 20 21 Respiratory Effort / Characteristics Non-Labored Spontaneous Respiratory Depth Normal Blood Pressure 187/93 H Blood Pressure Mean 124 Blood Pressure Position Sitting Pulse Oximetry 95 99 99 Oxygen Delivery Method Room Air Room Air Room Air Sepsis Recent Fever Within 48 Hours No Sepsis New/Unexplained Change in Mental Status N/A Sepsis Action Taken by Nursing No Action Required 05/24/22 00:30 05/24/22 01:00 05/24/22 02:18 Temperature Temperature Source Pulse Rate 83 83 Pulse Rate [Finger] 75 Respiratory Rate 12 19 18 Respiratory Effort / Characteristics Spontaneous Short of Breath SOB on Exertion Respiratory Depth Blood Pressure 145/105 H Blood Pressure Mean 118 Blood Pressure Position Pulse Oximetry 95 95 Oxygen Delivery Method Room Air Room Air Sepsis Recent Fever Within 48 Hours Sepsis New/Unexplained Change in Mental Status Sepsis Action Taken by Nursing 05/24/22 01:30 05/24/22 01:50 05/24/22 02:00 Temperature Temperature Source Pulse Rate 72 89 87 Pulse Rate [Finger] Respiratory Rate 16 15 Respiratory Effort / Characteristics Respiratory Depth Blood Pressure 171/91 H Blood Pressure Mean 117 Blood Pressure Position Pulse Oximetry 91 94 93 Oxygen Delivery Method Room Air Room Air Room Air Sepsis Recent Fever Within 48 Hours Sepsis New/Unexplained Change in Mental Status Sepsis Action Taken by Nursing 05/24/22 02:30 05/24/22 03:00 05/24/22 03:30 Temperature Temperature Source Pulse Rate 77 101 H 100 H Pulse Rate [Finger] Respiratory Rate 17 17 16 Respiratory Effort / Characteristics Respiratory Depth Blood Pressure Blood Pressure Mean Blood Pressure Position Pulse Oximetry 99 98 92 Oxygen Delivery Method Room Air Room Air Room Air Sepsis Recent Fever Within 48 Hours Sepsis New/Unexplained Change in Mental Status Sepsis Action Taken by Nursing 05/24/22 04:00 Temperature Temperature Source Pulse Rate 110 H Pulse Rate [Finger] Respiratory Rate 21 Respiratory Effort / Characteristics Respiratory Depth Blood Pressure Blood Pressure Mean Blood Pressure Position Pulse Oximetry 94 Oxygen Delivery Method Room Air Sepsis Recent Fever Within 48 Hours Sepsis New/Unexplained Change in Mental Status Sepsis Action Taken by Nursing Laboratory Data 05/24/22 00:11 05/24/22 00:11 Lab Results 05/24/22 05/24/22 Range/Units 00:11 00:11 WBC 8.32 (4.8-10.8) K/ul RBC 3.99 L (4.20-5.40) M/uL Hgb 12.4 (12.0-16.0) g/dl Hct 37.1 (37.0-47.0) % MCV 93.0 (80.0-100.0) fL MCH 31.1 (25.0-34.0) pg MCHC 33.4 (32.0-36.0) g/dL RDW Std Deviation 49.1 H (36.4-46.3) fL RDW Coeff of Luz 14.4 (11.5-14.5) % Plt Count 155 (130-400) K/uL MPV 12.1 (9.4-12.4) fL Immature Gran % (Auto) 1.0 % Neut % (Auto) 73.6 % Lymph % (Auto) 15.6 % [place] % (Auto) 6.5 % Eos % (Auto) 2.6 % Baso % (Auto) 0.7 % Neut # (Auto) 6.12 (1.40-6.50) K/uL Lymph # (Auto) 1.30 (1.2-3.4) K/uL [place] # (Auto) 0.54 (0.11-0.59) K/uL Eos # (Auto) 0.22 (0-0.50) K/uL Baso # (Auto) 0.06 (0-0.2) K/uL Immature Gran # (Auto) 0.08 (0.01-0.20) K/uL Sodium 138 (136-145) mmol/L Potassium 3.6 (3.5-5.1) mmol/L Chloride 106 (98-107) mmol/L Carbon Dioxide 27 (21-32) mmol/L Anion Gap 5 (3-11) BUN 9 (6-23) mg/dl Creatinine 0.84 (0.6-1.2) mg/dl Est Cr Clr Drug Dosing 102.4 ml/min Est GFR ( Amer) 96.6 ml/min Est GFR (Non-Af Amer) 83.3 ml/min BUN/Creatinine Ratio 10.7 (10-20) Glucose 143 H (70-99(Fasting)) mg/dl Calcium 8.9 (8.5-10.1) mg/dl Total Bilirubin 0.3 (0.2-1.0) mg/dl AST 24 (13-39) U/L ALT 29 (7-52) U/L Alkaline Phosphatase 52 (34-104) U/L Troponin I High Sens 5.6 (0-14) pg/ml Total Protein 6.9 (6.0-8.3) gm/dl Albumin 3.9 (3.4-5.0) gm/dl Globulin 3.0 (2.5-4.0) gm/dl Albumin/Globulin Ratio 1.3 (0.9-2) Administered Medications Sodium Chloride (Nss 1000ml) 1,000 mls @ 125 mls/hr IV .Q8H LUCY Stop: 06/23/22 00:44 Last Admin: 05/24/22 00:46 Dose: 125 mls/hr Documented By: SANTOS Discontinued Medications Albuterol (Albut/Ipratrop 3mg/0.5mg Neb 3 Ml Vial) 3 ml NEB NOW STA; Protocol Stop: 05/23/22 23:25 Last Admin: 05/24/22 00:07 Dose: 3 ml Documented By: SANTOS Albuterol (Albut/Ipratrop 3mg/0.5mg Neb 3 Ml Vial) 3 ml NEB NOW STA; Protocol Stop: 05/24/22 00:37 Last Admin: 05/24/22 00:45 Dose: 3 ml Documented By: SANTOS Albuterol (Albut/Ipratrop 3mg/0.5mg Neb 3 Ml Vial) 12 ml NEB ONE ONE; Protocol Stop: 05/24/22 01:50 Last Admin: 05/24/22 02:18 Dose: 12 ml Documented By: JOHNIE Magnesium Sulfate/Dextrose (Magnesium Sulfate / D5w) 1 gm in 100 mls @ 100 mls/hr IV Q1H LUCY Stop: 05/24/22 02:35 Last Infusion: 05/24/22 02:51 Dose: 0 mls/hr Documented By: Admin: 05/24/22 01:48 Dose: 100 mls/hr Documented By: Infusion: 05/24/22 01:48 Dose: 0 mls/hr Documented By: Admin: 05/24/22 00:46 Dose: 100 mls/hr Documented By: SANTOS Methylprednisolone (Methylprednisolone 125 Mg/2 Ml Vial) 60 mg IV NOW STA Stop: 05/23/22 23:25 Last Admin: 05/24/22 00:07 Dose: 60 mg Documented By: SANTOS Discharge Plan Visit Data Chief Complaint: Shortness of Breath/Dyspnea Stated Complaint: SOB, COUGH ED Provider: Leatha Santos Discharge Problem: Dyspnea, Respiratory syncytial virus (RSV), Asthma exacerbation Forms Stand Alone Forms: [facility] Prescriptions Prescriptions: No Action montelukast 10 mg tablet 10 mg PO QAM PRN (Reason: Allergy Symptoms) Qty: 90 3RF albuterol sulfate [ProAir HFA] 90 mcg/actuation HFA aerosol inhaler 2 puff inhalation Q6H PRN (Reason: shortness of breath or wheezing) Qty: 8.5 5RF Combivent Respimat 20-100 mcg/actuation mist 1 puff INH Q6H PRN (Reason: Shortness Of Breath Or Wheezing) Qty: 3 3RF Referrals Referrals: Tima Posada DO [Primary Care Provider] -
[2022-05-24] MEDS ORDERED: ALBUT/IPRATROP 3MG/0.5MG NEB 3 ML VIAL NEB STA (00:36)
[2022-05-24] MEDS ORDERED: SODIUM CHLORIDE 0.9% 1000ML 1,000 ML IV SCH (00:45)
[2022-05-24] MEDS: MAGNESIUM SULFATE / D5W 1 GM/100 ML BAG IV SCH ×2 (00:46→01:48)
[2022-05-24 00:57] LABS: Albumin Globulin Ratio 1.3 (0.9-2); Albumin Level 3.9 gm/dl (3.4-5.0); BUN Creatinine Ratio 10.7 (10-20); Bilirubin,Total 0.3 mg/dl (0.2-1.0); Calcium 8.9 mg/dl (8.5-10.1); Creatinine Clr Calc Pharmacy 102.4 ml/min; Est GFR (African American) 96.6 ml/min; Est GFR (Non-African American) 83.3 ml/min; Potassium 3.6 mmol/L (3.5-5.1); Total Protein 6.9 gm/dl (6.0-8.3)
[2022-05-24 01:03] LABS: Troponin I High Sensitivity 5.6 pg/ml (0-14)
[2022-05-24 01:05] LABS: Basophils # (auto) 0.06 K/uL (0-0.2); Basophils % (auto) 0.7 %; Eosinophils # (auto) 0.22 K/uL (0-0.50); Eosinophils % (auto) 2.6 %; Hematocrit (blood only) 37.1 % (37.0-47.0); Hemoglobin 12.4 g/dl (12.0-16.0); Immature Granulocytes # (auto) 0.08 K/uL (0.01-0.20); Lymphocytes % (auto) 15.6 %; Mean Corpuscular Hemoglobin 31.1 pg (25.0-34.0); Mean Corpuscular Hgb Conc 33.4 g/dL (32.0-36.0); Mean Platelet Volume 12.1 fL (9.4-12.4); Monocytes # (auto) 0.54 K/uL (0.11-0.59); Monocytes % (auto) 6.5 %; Neutrophils # (auto) 6.12 K/uL (1.40-6.50); Neutrophils % (auto) 73.6 %; Platelet Count 155 K/uL (130-400); RDW Coefficient of Variation 14.4 % (11.5-14.5); RDW Standard Deviation 49.1 fL (36.4-46.3); Red Blood Count 3.99 M/uL (4.20-5.40); White Blood Count 8.32 K/ul (4.8-10.8)
[2022-05-24] MEDS ORDERED: ALBUT/IPRATROP 3MG/0.5MG NEB 3 ML VIAL NEB ONE (01:49)
--- NOTE | 2022-05-24 04:16 | History & Physical Report ---
Date of Service May 24, 2022 Assessment & Plan (1) Asthma exacerbation: Plan: 46yo female with history of asthma presenting with persistent cough, SOB and wheeze in setting of RSV infection. Patient has been using Mucinex as well as MDI and Nebulizers at home with minimal improvement. -Admit to medical -DuoNeb q 4 hours -Albuterol q 2 hours PRN -Solumedrol 40mg IV TID -Continue Mucinex -Supplemental O2 as needed -Continue Singulair 10mg po daily -Will administer 1gm Mg -Smoking cessation counseling (2) Respiratory syncytial virus (RSV): Plan: Likely cause of acute exacerbation of asthma -Management of asthma as above -Maintain isolation precautions -Tylenol PRN History of Present Illness Chief Complaint: shortness of breath Primary Care Provider: DO Faiza Emerson [place] is a 46yo female with history of Asthma, Bipolar disorder, GERD, RAUDEL and HLP presenting with cough, SOB and wheeze. Patient developed symptoms 2 days ago - cough, chest tightness and wheeze. She was seen in the ER yesterday and was diagnosed with RSV. She was discharged home from the ER in stable condition. Since then she has taken her nebulizer at home 6 times and has been using her MDI in between nebulizer treatments with minimal improvement. She has also been taking Mucinex. She continues to cough - productive for brown sputum. Complaining of FISH and SOB at rest, wheeze, chest pain with coughing as well as fever and chills. In the ER patient was visibly tachypneic. Minimal airflow noted on initial exam. She was administered DuoNeb x 2 and a continuous 12mg Albuterol neb, Magnesium and Solumedrol with some improvement. Still with SOB and cough. ER Course: Albuterol Magnesium Solumedrol Duoneb x 2 Allergies Allergy/AdvReac Type Severity Reaction Status Date / Time cat dander Allergy Intermediate congestion Verified 06/03/21 09:42 dog dander Allergy Intermediate congestion Verified 06/03/21 09:42 Penicillins Allergy Mild hives Verified 06/03/21 09:42 acetaminophen [From Tylenol] AdvReac Intermediate Gastrointestinal Verified 06/03/21 09:42 Upset ibuprofen AdvReac Intermediate Gastrointestinal Verified 06/03/21 09:42 Upset cephalexin AdvReac Mild upset Verified 06/03/21 09:42 stomach Home Medications Medication Instructions Recorded Confirmed Type ipratropium 20 mcg-albuterol 100 1 puff inhalation Q6H PRN 06/03/21 05/24/22 Rx mcg/actuation mist for inhalation Shortness Of Breath Or Wheezing #3 (Combivent Respimat) Inhalers montelukast 10 mg tablet 10 mg PO QAM PRN Allergy Symptoms 10/12/21 05/24/22 Rx #90 tabs albuterol sulfate 90 mcg/actuation 2 puff inhalation Q6H PRN 05/23/22 05/24/22 Rx aerosol inhaler (ProAir HFA) shortness of breath or wheezing #8.5 grams Past Med/Surg History Medical History Anemia no hx blood transfusions Asthma stable Bipolar affective disorder, current episode manic no meds Chondromalacia of knee Gastritis GERD without esophagitis controlled Hypothyroidism Non compliance w medication regimen Obstructive sleep apnea, adult + snoring, diagnosed with "mild" RAUDEL, considering repeat sleep study/no device prescribed based on initial sleep study per patient Osteoarthritis Surgical History History of bilateral tubal ligation History of section x2 History of cholecystectomy History of esophagogastroduodenoscopy (EGD) History of lumbar discectomy History of robot-assisted laparoscopic hysterectomy with bilateral salphingectomy: 01/02/17: Grade view 1, MAC#3, ETT 7.5 at [facility] History of tonsillectomy and adenoidectomy History of wisdom tooth extraction Status post right foot surgery Family History Unknown Cancer Mother Breast cancer LVAD (left ventricular assist device) present Cancer Myocardial infarction Father Gout Hypertension Son ADHD (attention deficit hyperactivity disorder) Other No family history of adverse response to anesthesia Denies family history of Ovarian cancer Prostate cancer Lung cancer Colorectal cancer Stroke Social History Smoking Status: Current every day smoker Tobacco Type: Cigarettes Age Started Using Tobacco: 18; Age Quit Using Tobacco: 32; packs per day: 1; Cigarettes Per Day: 20 daily (tobacco use x 15 years); Second Hand Exposure: Yes (father smoked); Hx Alcohol Use: No Hx Substance Use: No Preferred Language: Croatian Communication Ability: Effective Visual Impairment: No Limitations Hearing Ability: Normal Hired Worker Required: No Beliefs That Will Affect Care: None marital status: Current Living Situation: Spouse current occupational status: employed current occupation: [employer] Feels Safe at Home: Yes Childhood Exposure to Second-Hand Smoke: Yes (father) Assistive Devices: Contacts and Glasses Review of Systems Review of Systems: All systems reviewed & are unremarkable except as noted in HPI & below Physical Exam Physical Exam: General: patient resting comfortably, NAD, non-toxic in appearance, AA&O x 4, presently on 2L NC - some desaturations to 89% with sleeping Skin: warm, dry, intact, no rashes or lesions HEENT: NC/AT, PERRL, EOMI, anicteric sclera, conjunctiva without injection, external ear normal to inspection and nontender, nares patent, moist mucus membranes, dentition intact, no oropharyngeal lesions, neck supple, trachea midline, no LAD, no thyromegaly, no JVD Heart: +S1/S2, regular, tachycardic, no m/r/g Lungs: diffuse end expiratory wheezing bilaterally, no rales or rhonchi Abd: +BS, soft, NT/ND, no masses/organomegaly/ascites Ext: warm, 2+ pulses in UE/LE bilaterally, no clubbing/cyanosis or edema Neuro: nonfocal, patient AA&O x 4, speech intact, no facial droop, moving all extremities on command with equal strength 5/5 Results & Data Results & Data ([facility]) Vital Signs (Past 12 Hours) Vital Signs Temp Pulse Pulse Resp BP Pulse Ox O2 Del Method 05/24/22 02:18 75 18 95 Room Air 05/24/22 01:00 83 19 95 Room Air 05/24/22 00:30 83 12 145/105 H 05/24/22 00:20 79 21 99 Room Air 05/24/22 00:21 99 Room Air 05/23/22 23:11 37.1 C 78 20 187/93 H 95 Room Air Laboratory Results Laboratory Results WBC 8.32 K/ul (4.8-10.8) 05/24/22 00:11 RBC 3.99 M/uL (4.20-5.40) L 05/24/22 00:11 Hgb 12.4 g/dl (12.0-16.0) 05/24/22 00:11 Hct 37.1 % (37.0-47.0) 05/24/22 00:11 MCV 93.0 fL (80.0-100.0) 05/24/22 00:11 MCH 31.1 pg (25.0-34.0) 05/24/22 00:11 MCHC 33.4 g/dL (32.0-36.0) 05/24/22 00:11 RDW Std Deviation 49.1 fL (36.4-46.3) H 05/24/22 00:11 RDW Coeff of Luz 14.4 % (11.5-14.5) 05/24/22 00:11 Plt Count 155 K/uL (130-400) 05/24/22 00:11 MPV 12.1 fL (9.4-12.4) 05/24/22 00:11 Immature Gran % (Auto) 1.0 % 05/24/22 00:11 Neut % (Auto) 73.6 % 05/24/22 00:11 Lymph % (Auto) 15.6 % 05/24/22 00:11 [place] % (Auto) 6.5 % 05/24/22 00:11 Eos % (Auto) 2.6 % 05/24/22 00:11 Baso % (Auto) 0.7 % 05/24/22 00:11 Neut # (Auto) 6.12 K/uL (1.40-6.50) 05/24/22 00:11 Lymph # (Auto) 1.30 K/uL (1.2-3.4) 05/24/22 00:11 [place] # (Auto) 0.54 K/uL (0.11-0.59) 05/24/22 00:11 Eos # (Auto) 0.22 K/uL (0-0.50) 05/24/22 00:11 Baso # (Auto) 0.06 K/uL (0-0.2) 05/24/22 00:11 Immature Gran # (Auto) 0.08 K/uL (0.01-0.20) 05/24/22 00:11 Sodium 138 mmol/L (136-145) 05/24/22 00:11 Potassium 3.6 mmol/L (3.5-5.1) 05/24/22 00:11 Chloride 106 mmol/L (98-107) 05/24/22 00:11 Carbon Dioxide 27 mmol/L (21-32) 05/24/22 00:11 Anion Gap 5 (3-11) 05/24/22 00:11 BUN 9 mg/dl (6-23) 05/24/22 00:11 Creatinine 0.84 mg/dl (0.6-1.2) 05/24/22 00:11 Est Cr Clr Drug Dosing 102.4 ml/min 05/24/22 00:11 Est GFR ( Amer) 96.6 ml/min 05/24/22 00:11 Est GFR (Non-Af Amer) 83.3 ml/min 05/24/22 00:11 BUN/Creatinine Ratio 10.7 (10-20) 05/24/22 00:11 Glucose 143 mg/dl (70-99(Fasting)) H 05/24/22 00:11 Calcium 8.9 mg/dl (8.5-10.1) 05/24/22 00:11 Total Bilirubin 0.3 mg/dl (0.2-1.0) 05/24/22 00:11 AST 24 U/L (13-39) 05/24/22 00:11 ALT 29 U/L (7-52) 05/24/22 00:11 Alkaline Phosphatase 52 U/L (34-104) 05/24/22 00:11 Troponin I High Sens 5.6 pg/ml (0-14) 05/24/22 00:11 Total Protein 6.9 gm/dl (6.0-8.3) 05/24/22 00:11 Albumin 3.9 gm/dl (3.4-5.0) 05/24/22 00:11 Globulin 3.0 gm/dl (2.5-4.0) 05/24/22 00:11 Albumin/Globulin Ratio 1.3 (0.9-2) 05/24/22 00:11 PG Care Time/CCT Total # of Minutes Spent Total Time Spent with Patient: Total time spent is greater than 50% in coordination of care (as documented) at patient's floor/unit and/or counseling patient: Coding Level of Care Code 43867 INT INP/OBS CARE Diagnoses Asthma exacerbation J45.901 Respiratory syncytial virus (RSV) B33.8
[2022-05-24] MEDS ORDERED: MONTELUKAST SODIUM 10 MG TABLET PO PRN (05:05)
[2022-05-24] MEDS ORDERED: MAGNESIUM SULFATE / D5W 1 GM/100 ML BAG IV ONE (05:05)
[2022-05-24] MEDS ORDERED: ACETAMINOPHEN 325 MG TAB PO PRN (05:05)
[2022-05-24] MEDS ORDERED: ALBUTEROL 0.5% NEB SOLN 2.5 MG/0.5 ML VIAL NEB PRN (05:05)
[2022-05-24] MEDS: ALBUT/IPRATROP 3MG/0.5MG NEB 3 ML VIAL NEB SCH ×5 (07:14→23:03)
--- NOTE | 2022-05-24 07:41 | Progress Note ---
Date of Service May 24, 2022 Assessment & Plan (1) Asthma exacerbation: Plan: 1. Asthma exacerbation - Persistent cough x 3 days, exacerbation due to confirmed RSV, history of moderate persistent asthma and asthma medication nonadherence - Physical examination reassuring, with 96% oxygen saturation at room air, no acute distress, and minor L lung wheezes - No acute process on chest x-ray - Continue Solumedrol 40mg IV TID, DuoNeb Q 4 hours, albuterol Q 2 hours PRN, supplemental O2 PRN - Weight loss and smoking cessation counseling provided - Observe overnight - Will continue discussion about chronic asthma treatment, but patient does require maintenance LABA/ICS 2. RSV - Likely cause of acute exacerbation of asthma. - Management of asthma as above - Maintain droplet precautions - Excedrin Migraine PRN for abdominal muscle pain 2/2 coughing + mild caffeine withdrawal (2) Respiratory syncytial virus (RSV): Admission and Anticipated Discharge Date Admission Date: May 24, 2022 Supervising Physician Co-Signing Physician Notes Medical Student Supervision Note: I was personally present during medical student patient encounter and independently interviewed and examined the patient and verified the pinto history and physical, reviewed labs and image studies, discussed the case with Xochilt Nichols and agree with the findings and care plan. 46 y/o F with h/o persistent asthma and tobacco use ds here with asthma exacerbation Cough and shortness of breath persisting No fever o/e - some resp distress with conversation. AAOx3 heart- regular, lungs- good air entry. Asthma exacerbation due to RSV - IV steroids, nebs. Will need to have steroid inhaler at home. Only using combivent 5 times a day. may need 2 step on discharge. Applauded refraining from tob use Discussed outpatient weight management. Subjective Chief complaint: Shortness of breath HPI: Faiza is a 46-year-old female with a history of asthma, bipolar disorder, GERD, and RAUDEL, who presents with cough, SOB, and wheeze. 3 days ago, the patient developed cough, chest tightness, and wheezing. 2 days ago, she went to the emergency room and was diagnosed with RSV, and then was discharged home in stable condition. In response to minimal improvements in her symptoms, she presented to the ER again last night, 05/23/2022. In the ER last night, she was visibly tachypneic with a persistent cough productive of brown sputum. She was administered DuoNeb x 2 and a continuous 12mg Albuterol nebulizer, Magnesium and Solumedrol, which resulted in minor improvement. She was admitted to medicine overnight. 05/24/2022: As of this morning at 0850, Faiza was sitting unsupported in bed, eating breakfast and resting comfortably. She reports minimal symptom improvement, continued shortness of breath, and persistent coughing. She also mentions mild abdominal muscle pain from coughing, as well as moderate knee/hip/back pain, and requests NSAIDs/muscle relaxants to relieve the pain. In discussing the possibility of quitting smoking, she states that she has not smoked since her symptoms started 3 days ago, and does not miss it. She also states that she wants to improve her health, breathe better, and have enough energy to go to the gym. She has no questions or concerns at this time. Review of Systems Review of Systems: All systems reviewed & are unremarkable except as noted in HPI & below Per HPI. Physical Exam Constitutional: cooperative, comfortable and + overweight Eyes: + anicteric sclerae, PERRL and normal accommodation; no conjunctival abnormality ENMT: external ear and nose normal, oropharynx normal Neck: normal visual inspection Respiratory: normal respiratory effort, + cough, able to speak in complete sentences and symmetric chest movement; no labored breathing and does not use accessory muscles Results & Data ([facility]) Vital Signs (Past 12 Hours) Vital Signs Temp Pulse Pulse Resp BP Pulse Ox O2 Del Method 05/24/22 07:14 94 H 18 92 Room Air 05/24/22 06:30 78 12 84 L Room Air 05/24/22 06:00 87 16 90 Room Air 05/24/22 05:30 86 16 91 Room Air 05/24/22 06:33 95 Nasal Cannula 05/24/22 05:00 84 13 91 Room Air 05/24/22 04:30 112 H 19 92 Room Air 05/24/22 04:00 110 H 21 94 Room Air 05/24/22 03:30 100 H 16 92 Room Air 05/24/22 03:00 101 H 17 98 Room Air 05/24/22 02:30 77 17 99 Room Air 05/24/22 02:00 87 93 Room Air 05/24/22 01:50 89 15 171/91 H 94 Room Air 05/24/22 01:30 72 16 91 Room Air 05/24/22 02:18 75 18 95 Room Air 05/24/22 01:00 83 19 95 Room Air 05/24/22 00:30 83 12 145/105 H 05/24/22 00:20 79 21 99 Room Air 05/24/22 00:21 99 Room Air 05/23/22 23:11 37.1 C 78 20 187/93 H 95 Room Air Diagnostic Findings Laboratory Results WBC 8.32 K/ul (4.8-10.8) 05/24/22 00:11 RBC 3.99 M/uL (4.20-5.40) L 05/24/22 00:11 Hgb 12.4 g/dl (12.0-16.0) 05/24/22 00:11 Hct 37.1 % (37.0-47.0) 05/24/22 00:11 MCV 93.0 fL (80.0-100.0) 05/24/22 00:11 MCH 31.1 pg (25.0-34.0) 05/24/22 00:11 MCHC 33.4 g/dL (32.0-36.0) 05/24/22 00:11 RDW Std Deviation 49.1 fL (36.4-46.3) H 05/24/22 00:11 RDW Coeff of Luz 14.4 % (11.5-14.5) 05/24/22 00:11 Plt Count 155 K/uL (130-400) 05/24/22 00:11 MPV 12.1 fL (9.4-12.4) 05/24/22 00:11 Immature Gran % (Auto) 1.0 % 05/24/22 00:11 Neut % (Auto) 73.6 % 05/24/22 00:11 Lymph % (Auto) 15.6 % 05/24/22 00:11 Bullock % (Auto) 6.5 % 05/24/22 00:11 Eos % (Auto) 2.6 % 05/24/22 00:11 Baso % (Auto) 0.7 % 05/24/22 00:11 Neut # (Auto) 6.12 K/uL (1.40-6.50) 05/24/22 00:11 Lymph # (Auto) 1.30 K/uL (1.2-3.4) 05/24/22 00:11 Bullock # (Auto) 0.54 K/uL (0.11-0.59) 05/24/22 00:11 Eos # (Auto) 0.22 K/uL (0-0.50) 05/24/22 00:11 Baso # (Auto) 0.06 K/uL (0-0.2) 05/24/22 00:11 Immature Gran # (Auto) 0.08 K/uL (0.01-0.20) 05/24/22 00:11 Sodium 138 mmol/L (136-145) 05/24/22 00:11 Potassium 3.6 mmol/L (3.5-5.1) 05/24/22 00:11 Chloride 106 mmol/L (98-107) 05/24/22 00:11 Carbon Dioxide 27 mmol/L (21-32) 05/24/22 00:11 Anion Gap 5 (3-11) 05/24/22 00:11 BUN 9 mg/dl (6-23) 05/24/22 00:11 Creatinine 0.84 mg/dl (0.6-1.2) 05/24/22 00:11 Est Cr Clr Drug Dosing 102.4 ml/min 05/24/22 00:11 Est GFR ( Amer) 96.6 ml/min 05/24/22 00:11 Est GFR (Non-Af Amer) 83.3 ml/min 05/24/22 00:11 BUN/Creatinine Ratio 10.7 (10-20) 05/24/22 00:11 Glucose 143 mg/dl (70-99(Fasting)) H 05/24/22 00:11 Calcium 8.9 mg/dl (8.5-10.1) 05/24/22 00:11 Total Bilirubin 0.3 mg/dl (0.2-1.0) 05/24/22 00:11 AST 24 U/L (13-39) 05/24/22 00:11 ALT 29 U/L (7-52) 05/24/22 00:11 Alkaline Phosphatase 52 U/L (34-104) 05/24/22 00:11 Troponin I High Sens 5.6 pg/ml (0-14) 05/24/22 00:11 Total Protein 6.9 gm/dl (6.0-8.3) 05/24/22 00:11 Albumin 3.9 gm/dl (3.4-5.0) 05/24/22 00:11 Globulin 3.0 gm/dl (2.5-4.0) 05/24/22 00:11 Albumin/Globulin Ratio 1.3 (0.9-2) 05/24/22 00:11 Impressions Chest X-Ray 05/23/22 23:25 XR chest 1V portable HISTORY: Increasing shortness of breath. Positive RSV. COMPARISON: Chest 05/22/2022. FINDINGS: No pneumothorax. No pleural effusions. The cardiac silhouette is top normal in size. No new focal lung consolidations to suggest a pneumonia. No evidence for pulmonary edema. IMPRESSION: No significant change compared to the prior study. No acute process. ACT 112: Negative or not required by law. Electronically signed by: Oscar Barajas M.D. 05/24/2022 9:33 AM Medications Administered Acetaminophen (Acetaminophen 325 Mg Tab) 650 mg PO Q4H PRN PRN Reason: Pain Stop: 06/23/22 10:03 Last Admin: 05/24/22 11:47 Dose: 650 mg Documented By: KELLY Albuterol (Albut/Ipratrop 3mg/0.5mg Neb 3 Ml Vial) 3 ml NEB Q4R [facility]; Protocol Stop: 06/23/22 06:59 Last Admin: 05/24/22 10:39 Dose: 3 ml Documented By: Admin: 05/24/22 07:14 Dose: 3 ml Documented By: NAKIA Guaifenesin (Guaifenesin 600 Mg Tabcr) 1,200 mg PO Q12 LUCY Stop: 06/23/22 08:59 Last Admin: 05/24/22 10:29 Dose: 1,200 mg Documented By: KELLY Methylprednisolone 40 mg/ (Syringe) 0.64 mls @ 1.5 mls/min IV Q8H LUCY Stop: 06/23/22 07:59 Last Admin: 05/24/22 10:29 Dose: 1.5 mls/min Documented By: KELLY Pantoprazole Sodium (Pantoprazole 40 Mg Tab) 40 mg PO QAM [facility] Stop: 06/23/22 10:29 Last Admin: 05/24/22 11:47 Dose: 40 mg Documented By: KELLY
[2022-05-24] MEDS ORDERED: COUGH DROP (SUGAR FREE) LOZ 24 LOZ/1 BOX BUCCAL ONE (08:07)
--- NOTE | 2022-05-24 08:19 | Electrocardiogram Report ---
Test Reason : Blood Pressure : / mmHG Vent. Rate : 078 BPM Atrial Rate : 078 BPM P-R Int : 136 ms QRS Dur : 076 ms QT Int : 372 ms P-R-T Axes : 022 033 007 degrees QTc Int : 424 ms Normal sinus rhythm Normal ECG When compared with ECG of 22-MAY-2022 22:10, No significant change was found Confirmed by Shawn Cano ([id number]) on 05/24/2022 8:18:53 AM Referred By: REFERRED SELF Confirmed By:Shawn Cano
--- NOTE | 2022-05-24 09:35 | XRay Report ---
XR chest 1V portable HISTORY: Increasing shortness of breath. Positive RSV. COMPARISON: Chest 05/22/2022. FINDINGS: No pneumothorax. No pleural effusions. The cardiac silhouette is top normal in size. No new focal lung consolidations to suggest a pneumonia. No evidence for pulmonary edema. IMPRESSION: No significant change compared to the prior study. No acute process. ACT 112: Negative or not required by law. Electronically signed by: Oscar Barajas M.D. 05/24/2022 9:33 AM
[2022-05-24] MEDS: guaiFENesin 600 MG TABCR PO SCH ×2 (10:29→20:06)
[2022-05-24] MEDS: methylPREDNISolone 40 MG in SYRINGE 0 ML IV SCH ×3 (10:29→23:24)
[2022-05-24] MEDS: ACETAMINOPHEN 325 MG TAB PO PRN ×3 (11:47→23:24)
[2022-05-24] MEDS: PANTOprazole 40 MG TAB PO SCH (11:47)
[2022-05-24] MEDS ORDERED: MoRPHine SULFATE 2 MG/ML CARP IV STA (20:20)
[2022-05-24] MEDS ORDERED: oxyCODONE HCL IR 5 MG TAB (IMMEDIATE RELEASE) PO STA (20:23)
[2022-05-24] MEDS: BENZONATATE 100 MG CAPSULE PO PRN (21:22)
[2022-05-24] MEDS: DICLOFENAC SOD 1% GEL 100 GM TUBE EXT SCH (21:22)
[2022-05-25] MEDS: ALBUT/IPRATROP 3MG/0.5MG NEB 3 ML VIAL NEB SCH ×3 (02:43→10:49)
[2022-05-25 06:22] LABS: Hematocrit (blood only) 38.8 % (37.0-47.0); Hemoglobin 12.6 g/dl (12.0-16.0); Mean Corpuscular Hemoglobin 30.7 pg (25.0-34.0); Mean Corpuscular Hgb Conc 32.5 g/dL (32.0-36.0); Mean Corpuscular Volume 94.6 fL (80.0-100.0); Mean Platelet Volume 12.1 fL (9.4-12.4); Platelet Count 200 K/uL (130-400); RDW Coefficient of Variation 14.6 % (11.5-14.5); RDW Standard Deviation 50.7 fL (36.4-46.3); White Blood Count 14.71 K/ul (4.8-10.8)
[2022-05-25 06:45] LABS: BUN Creatinine Ratio 18.6 (10-20); Calcium 9.7 mg/dl (8.5-10.1); Creatinine Clr Calc Pharmacy 88.7 ml/min; Est GFR (African American) 81.2 ml/min; Potassium 4.6 mmol/L (3.5-5.1)
[2022-05-25] MEDS: methylPREDNISolone 40 MG in SYRINGE 0 ML IV SCH (11:12)
[2022-05-25] MEDS: DICLOFENAC SOD 1% GEL 100 GM TUBE EXT SCH ×2 (11:13→13:17)
[2022-05-25] MEDS: guaiFENesin 600 MG TABCR PO SCH (11:13)
[2022-05-25] MEDS: PANTOprazole 40 MG TAB PO SCH (11:14)
[2022-05-25] MEDS: BENZONATATE 100 MG CAPSULE PO PRN (11:26)
--- NOTE | 2022-05-25 11:54 | Discharge Summary ---
Date of Service May 25, 2022 Admission HPI Per Admitting Provider Faiza Boyle is a 46yo female with history of Asthma, Bipolar disorder, GERD, RAUDEL and HLP presenting with cough, SOB and wheeze. Patient developed symptoms 2 days ago - cough, chest tightness and wheeze. She was seen in the ER yesterday and was diagnosed with RSV. She was discharged home from the ER in stable condition. Since then she has taken her nebulizer at home 6 times and has been using her MDI in between nebulizer treatments with minimal improvement. She has also been taking Mucinex. She continues to cough - productive for brown sputum. Complaining of FISH and SOB at rest, wheeze, chest pain with coughing as well as fever and chills. In the ER patient was visibly tachypneic. Minimal airflow noted on initial exam. She was administered DuoNeb x 2 and a continuous 12mg Albuterol neb, Magnesium and Solumedrol with some improvement. Still with SOB and cough. ER Course: Albuterol Magnesium Solumedrol Duoneb x 2 Admission Exam Per Admitting Provider General: patient resting comfortably, NAD, non-toxic in appearance, AA&O x 4, presently on 2L NC - some desaturations to 89% with sleeping Skin: warm, dry, intact, no rashes or lesions HEENT: NC/AT, PERRL, EOMI, anicteric sclera, conjunctiva without injection, external ear normal to inspection and nontender, nares patent, moist mucus membranes, dentition intact, no oropharyngeal lesions, neck supple, trachea midline, no LAD, no thyromegaly, no JVD Heart: +S1/S2, regular, tachycardic, no m/r/g Lungs: diffuse end expiratory wheezing bilaterally, no rales or rhonchi Abd: +BS, soft, NT/ND, no masses/organomegaly/ascites Ext: warm, 2+ pulses in UE/LE bilaterally, no clubbing/cyanosis or edema Neuro: nonfocal, patient AA&O x 4, speech intact, no facial droop, moving all extremities on command with equal strength 5/5 Principal Diagnosis asthma exacerbation in the setting of RSV infection Discharge Exam Constitutional NAD. Vitals WNL. Eyes Anicteric sclerae. Respiratory Expiratory wheezing throughout lung grullon. Adequate air flow. No crackles or rhonchi. Non labored breathing. Cardiovascular RRR. No murmur noted. No LE edema. Psychiatric Alert. Mood and affect congruent. Discharge Data Allergies Allergy/AdvReac Type Severity Reaction Status Date / Time cat dander Allergy Intermediate congestion Verified 05/26/22 14:21 dog dander Allergy Intermediate congestion Verified 05/26/22 14:21 Penicillins Allergy Mild hives Verified 05/26/22 14:21 acetaminophen [From Tylenol] AdvReac Intermediate Gastrointestinal Verified 05/26/22 14:21 Upset ibuprofen AdvReac Intermediate Gastrointestinal Verified 05/26/22 14:21 Upset cephalexin AdvReac Mild upset Verified 05/26/22 14:21 stomach Consultations 05/24/22 04:10 ED Decision to Admit Stat Ordered Studies Chest X-Ray 05/23/22 23:25 XR chest 1V portable HISTORY: Increasing shortness of breath. Positive RSV. COMPARISON: Chest 05/22/2022. FINDINGS: No pneumothorax. No pleural effusions. The cardiac silhouette is top normal in size. No new focal lung consolidations to suggest a pneumonia. No evidence for pulmonary edema. IMPRESSION: No significant change compared to the prior study. No acute process. ACT 112: Negative or not required by law. Electronically signed by: Oscar Barajas M.D. 05/24/2022 9:33 AM Chest X-Ray 05/25/22 09:19 XR chest 1V portable HISTORY: worsening cough, congestion, hot/cold COMPARISON: Chest 05/23/2022. FINDINGS: There are low lung volumes. The cardiac silhouette remains top normal in size. No pleural effusions. No pneumothorax. The lungs are clear. No evidence for pulmonary edema. IMPRESSION: No significant change compared to the prior study. No acute process. ACT 112: Negative or not required by law. Electronically signed by: Oscar Barajas M.D. 05/25/2022 1:04 PM Hospital Course (1) Asthma exacerbation: (2) Respiratory syncytial virus (RSV): Plan Pt is a 46 yo female with PMH of asthma, bipolar disorder, GERD, and RAUDEL presenting to the ER w/ SOB and cough. Asthma exacerbation in the setting of RSV infection - Persistent cough x 3 days, exacerbation likely due to confirmed RSV - history of moderate persistent asthma and asthma medication nonadherence d/t running out of her inhaler - home inhalers before admission included albuterol PRN and combivent - CXR upon admission neg for acute process; repeat CXR 05/25 showed no change - pt treated with IV steroids, duoneb, albuterol PRN, and supplemental O2 PRN - Weight loss and smoking cessation counseling provided - hemodynamically stable upon admission and throughout entire hospital stay - upon discharge, pt prescribed combination ICS/LABA for maintenance use in addition to albuterol PRN; d/c combivent - pt given prednisone 40 mg daily x5 days - encouraged use of tylenol, tessalon, and mucinex for symptom control - encouraged close follow up with PCP to ensure adequate control of asthma w/ new inhaler Diet: regular DVT ppx: SCDs Code: full Dispo: home Total Time Total Time Spent Total Time Spent (In Minutes): as per attending attestation Discharge Plan Discharge Items Patient Disposition: Home - Self-Care Reason For Visit: ASTHMA EXACERBATION Discharge Diagnosis: asthma exacerbation Activity: Resume your previous activity Non-emergency contact: Primary Care Provider Call non-emergency contact if: you have any medication questions and your symptoms worsen Follow-up/Referrals: Tima Posada DO [Primary Care Provider] - 06/03/22 1:00 pm ([facility]) Diet: Regular Addtl Attending Provider Instructions: You were admitted to the hospital for shortness of breath associated with an acute exacerbation of your asthma. You were treated with inhalers (containing albuterol and ipratropium) to help open your airways and steroids through the IV along with mucinex. Your vitals were stable throughout your hospitalization. Chest x rays also did not show any developing pneumonia. A discharge summary will be sent to your primary care physician to ensure continuity of care. Please bring this discharge summary with you to your next office appointment so that your provider can review it at that time. Medications: Your medication list has been reviewed and reconciled upon discharge to ensure accuracy and continuity of care. An updated list of all your medications is included with your hospital discharge paperwork. Please review this list closely and make note of any changes to your medications. - You are being prescribed oral steroids. These are to be taken twice per day for 5 days. Avoid taking these before bed as they can cause trouble sleeping. - You can continue the tessalon perles for coughing and mucinex for congestion as you need. These are symptomatic treatments and only need to be taken as you feel you need them/if they are helping. Prescriptions for both of these medications were sent to your pharmacy. Mucinex is available over the counter if you do not want to pick it up as a prescription. - You should stop your previous inhaler (combivent). You were prescribed a new inhaler called [employer] SurgicalxSeedrs. This inhaler is a mixture of an inhaled steroid and a long acting medication similar to albuterol. You are to use this inhaler twice per day. The dose of this inhaler may need to be increassed if it is not controlling your symptoms well. This can be discussed with your primary care provider. Follow up appointments: - Make a follow up appointment with your PCP within the next week. It is very important that you follow up with them shortly after discharge from the hospital. - Keep all of your follow up appointments as already scheduled. If you cannot make an appointment, notify your provider. CONTACT YOUR PRIMARY CARE PROVIDER if you experience any of the following: - Difficulty following your treatment plan - Difficulty taking any of your medications CALL 911 OR GO TO THE EMERGENCY DEPARTMENT if you experience any of the following: - Sudden worsening of your current symptoms - Sudden, severe abdominal pain or nausea/vomiting - Severe chest pain or chest pain that radiates to your jaw or arm - Sudden, severe shortness of breath or difficulty breathing Pending Studies at Discharge: No Stand-Alone Forms: My [facility], Work/School Release, Smoking Cessation Medications and DC Order Prescriptions: New benzonatate 100 mg Capsule 200 mg PO TID PRN (Reason: cough) Qty: 21 0RF guaifenesin [Mucinex] 600 mg Tablet Extended Release 12hr 1,200 mg PO Q12 Qty: 14 0RF prednisone 20 mg tablet 40 mg PO DAILY 5 Days Qty: 10 0RF Rx Instructions: Take in the morning to avoid issues sleeping. Continued montelukast 10 mg tablet 10 mg PO QAM PRN (Reason: Allergy Symptoms) Qty: 90 3RF albuterol sulfate [ProAir HFA] 90 mcg/actuation HFA aerosol inhaler 2 puff inhalation Q6H PRN (Reason: shortness of breath or wheezing) Qty: 8.5 5RF Discontinued Combivent Respimat 20-100 mcg/actuation mist 1 puff INH Q6H PRN (Reason: Shortness Of Breath Or Wheezing) Qty: 3 3RF No Action fluticasone propion-salmeterol [Advair Diskus] 100-50 mcg/dose blister with device 1 inh inhalation BID Rx Instructions: dc [facility] was alternative to wixela that was not covered. Discharge Orders: Discharge Order (Routine); Ordered 05/25/22 Ordered By: Rimma Rosas/Other Patient Handouts: ED Shortness of Breath (Dyspnea) Admission Data Admit Date/Time: 05/24/22 04:14 Attending Provider: Urszula Stoddard Admit Provider: Mary Singh Primary Care Provider: Tima Posada Other Providers: Mary Singh Other Interventions: Discharge Summary Assessment (RN) Last Done: 05/25/22 13:25 Supervising Physician Co-Signing Physician Notes Resident Physician Supervision Note: I independently interviewed and examined the patient and verified the pinto history and physical, reviewed labs and image studies and agree with resident findings and care plan. Resident Activity Tracking Resident Involvement: Resident Care Provided Care Provided: Adult Hospital Medicine
--- NOTE | 2022-05-25 13:05 | XRay Report ---
XR chest 1V portable HISTORY: worsening cough, congestion, hot/cold COMPARISON: Chest 05/23/2022. FINDINGS: There are low lung volumes. The cardiac silhouette remains top normal in size. No pleural e ffusions. No pneumothorax. The lungs are clear. No evidence for pulmonary edema. IMPRESSION: No significant change compared to the prior study. No acute process. ACT 112: Negative or not required by law. Electronically signed by: Oscar Barajas M.D. 05/25/2022 1:04 PM
[2022-05-25] MEDS: ACETAMINOPHEN 325 MG TAB PO PRN (13:15)
== END 2022-05-25 14:25 | disposition home or self-care (01) | DRG 203 ==
LOC: ED 23:09 → EDINP 05-24 04:14 → SUATTDRO 05-24 04:14 → 3E 05-24 05:04

== ENCOUNTER 2024-06-05 05:56 | Inpatient (IN) ==
--- NOTE | 2024-06-05 06:43 | Emergency Department Note ---
Impression & Plan Influenza A, Hypoxia, Low back pain, Transaminitis ED Provider Note HISTORY OF PRESENT ILLNESS: Patient is a 48-year-old female presenting with low back pain. Patient reports symptoms been ongoing for the last few days. She was seen yesterday in the emergency department for similar symptoms. She states that she was feeling well after her visit to the ER and went home and went to bed, but woke up this morning and had significant worsening of her back pain and states that her bilateral legs feel numb. She has been ambulatory. She denies any bowel or bladder incontinence. She denies any chest pain or shortness of breath. She is unsure if she had a fever at home but was febrile on arrival to the ER. Denies any saddle anesthesia. She ambulated into the restroom on arrival to the ER. She denies any chest pain or shortness of breath. Denies any abdominal pain, nausea or vomiting. Patient denies any recent falls or chiropractic manipulation of her back. When asked about the numbness in her legs, she states that it goes to her bilateral knees, but then also states that it goes all the way down into her feet. Patient tested positive for influenza A yesterday during her emergency department visit. She is on day 3 of illness. ROS: as above PHYSICAL EXAM: Constitutional: Patient appears in no acute distress. Morbid obesity HENT: Head: Normocephalic and atraumatic. Eyes: EOMI, PERRL Mouth/Throat: Mucous membranes moist. Neck: Trachea midline. Neck supple. Cardiovascular: Tachycardic with regular rhythm. No murmurs, rubs or gallops. Intact distal pulses. Pulmonary/Chest: No respiratory distress. Breath sounds clear and equal bilaterally. No wheezes or rales. Abdominal: Abdomen soft, no tenderness, rebound or guarding. Back: No paraspinal tenderness, no CVA tenderness. Lower lumbar midline tenderness palpation. No step-offs. Patient is able to straight leg raise bilaterally. Babinski downgoing bilaterally. No clonus. Musculoskeletal: No edema, tenderness or deformity noted. Skin: Warm and dry. No rash, erythema, pallor or cyanosis Psychiatric: Appropriate mood and affect for situation. Neurological: Alert and keenly responsive. CN II-XII grossly intact, moving all extremities equally and fully. MDM: - Vitals signs showed hypertension, tachycardia and fever. Patient was documented hypoxic on arrival and was started on 2 L nasal cannula. - History obtained via patient. History as above. - Chronic conditions affecting care: hypothyroidism; obesity; HLD; prediabetes - Differential diagnoses include, but are not limited to: Musculoskeletal pain; UTI; cauda equina syndrome; compression fracture - Order placed for continuous cardiac monitoring. At this time, monitor showed rate of 101 bpm with normal sinus rhythm, per my interpretation. - External medical records reviewed. - Patient initially given 1g IV tylenol on arrival to ER. - EKG image interpreted by myself showed normal sinus rhythm. Rate 76 bpm. QT 364. No acute ischemic changes. - Laboratory workup interpreted by myself showed normal WBC; stable electrolytes; transaminitis (AST 137; ALT 160); negative hCG - Given elevated liver function test in setting of her acute viral illness and her taking Tylenol, an acetaminophen level was obtained and was negative. - UA negative for infeciton - CXR image interpreted myself was negative for pneumonia, per my interpretation. However, the radiologist reported "middle lobe collapse with tracheal shift to the right side and prominent bilateral hilar bronchovascular markings." - A CT PE scan was obtained to further assess the concern for lung collapse and the patient's hypoxia. CT PE negative for PE or lung collapse. However, the patient is noted to have a newly demonstrated calcified right pleural plaque and small air post opacity in the anterior segment of the right lower lobe. - CT lumbar spine wo contrast negative for acute abnormality. Patient has straightening of her lumbar spine due to muscle spasm. - On reassessment, patient still complaining of back pain. She was given 10 mg IV Toradol and a lidocaine patch. - Given patient's new oxygen requirement, will admit to hospitalist service. - Discussion was had with case mgr about patient's case and need for admission - Hospitalist, Dr. Hamilton, consulted for admission - Patient admitted to [facility] hospitalist service for further evaluation and management. ASSESSMENT AND PLAN: Diagnosis: influenza A; hypoxia; low back pain; transaminitis Plan: admit Past Med/Surg History Problem List (Updated 06/05/24 @ 09:15 by Cris Cho MD) Transaminitis (Acute) Low back pain (Acute) Hypoxia (Acute) Influenza A (Acute) Influenza A (Acute) Dietary counseling and surveillance Abnormal weight gain Obesity Obese abdomen Osteoarthritis of both knees Fatty infiltration of liver Mixed hyperlipidemia Metabolic syndrome Incontinence in female Prediabetes Pulmonary nodule, left CT chest 05/2021, 11/2021, 11/2022 - next due 2024 for final 2 year study. Tobacco use Asthma stable Osteoarthritis Obesity, Class III, BMI 40-49.9 (morbid obesity) Obstructive sleep apnea, adult + snoring, diagnosed with "mild" RAUDEL, considering repeat sleep study/no device prescribed based on initial sleep study per patient Hypothyroidism GERD without esophagitis controlled Bipolar affective disorder, current episode manic no meds Allergic rhinitis Medical History TMJ (dislocation of temporomandibular joint) Non compliance w medication regimen Chondromalacia of knee Gastritis Surgical History History of esophagogastroduodenoscopy (EGD) History of robot-assisted laparoscopic hysterectomy with bilateral salphingectomy: 01/02/17: Grade view 1, MAC#3, ETT 7.5 at [facility] History of section x2 History of bilateral tubal ligation Status post right foot surgery History of wisdom tooth extraction History of tonsillectomy and adenoidectomy History of lumbar discectomy History of cholecystectomy Family History Unknown Cancer Mother Breast cancer LVAD (left ventricular assist device) present Cancer Myocardial infarction Father Gout Hypertension Son ADHD (attention deficit hyperactivity disorder) Other No family history of adverse response to anesthesia Denies family history of Ovarian cancer Prostate cancer Lung cancer Colorectal cancer Stroke Social History Smoking Status: Current every day smoker Tobacco Type: Cigarettes Age Started Using Tobacco: 18; packs per day: 1; Cigarettes Per Day: 1 pack a day.; Second Hand Exposure: No; Do You Dip or Chew Tobacco: No; Hx Alcohol Use: No Hx Substance Use: No Preferred Language: [place] Leonean Communication Ability: Effective Visual Impairment: Limited Hearing Ability: Normal Grazing Examiner Required: No Beliefs That Will Affect Care: None marital status: Legally Current Living Situation: Alone current occupational status: employed current occupation: [employer] How many Children do You have: 2 Feels Safe at Home: Yes Childhood Exposure to Second-Hand Smoke: Yes (father) caffeine: Yes Dental Care, Regularly: Yes Physical Activity Frequency: Does not Exercise Seatbelt Use: always Sunscreen Use: No Assistive Devices: Glasses Allergies Allergies Allergy/AdvReac Type Severity Reaction Status Date / Time cat dander Allergy Intermediate congestion Verified 06/03/24 09:02 dog dander Allergy Intermediate congestion Verified 06/03/24 09:02 Penicillins Allergy Mild hives Verified 06/03/24 09:02 acetaminophen [From Tylenol] AdvReac Intermediate Gastrointestinal Verified 06/03/24 09:02 Upset ibuprofen AdvReac Intermediate Gastrointestinal Verified 06/03/24 09:02 Upset cephalexin AdvReac Mild upset Verified 06/03/24 09:02 stomach Home Meds Home Medications Medication Instructions Recorded Confirmed rosuvastatin 5 mg tablet 5 mg PO HS 01/18/24 06/04/24 amlodipine 5 mg tablet 5 mg PO DAILY 06/04/24 06/04/24 Previous Rx's Medication Instructions Recorded Auto Titrating CPAP #1 ea 05/31/23 CPAP Supplies #1 ea 05/31/23 cyclobenzaprine 10 mg tablet 10 mg PO TID PRN muscle spasm #20 11/11/23 tabs lidocaine 5 % topical patch 1 patch topical DAILY #15 ea 11/11/23 (Lidoderm) montelukast 10 mg tablet 10 mg PO QAM PRN Allergy Symptoms 05/06/24 #90 tabs benzonatate 200 mg capsule 200 mg PO TID PRN cough #30 caps 05/13/24 peg [id number] [id number] See Rx Instructions PO .COMPLEX #2 05/17/24 178.7-7.3-0.5-1.12-0.9 gram oral mL soln (Suflave) levothyroxine 125 mcg tablet 125 mcg PO DAILY #30 tabs 05/30/24 topiramate 25 mg tablet (Topamax) 25 mg PO DAILY #30 tabs 06/03/24 Results & Data (ED) Vital Signs Vital Signs - 24 hr 06/05/24 05:52 06/05/24 05:52 06/05/24 06:08 Temperature 37.2 C 37.2 C Temperature Source Oral Oral Pulse Rate 98 H 101 H Pulse Rate [Apical] 98 H Pulse Rate from SpO2 Sensor Pulse Rhythm Regular Pulse Rhythm [Apical] Regular Pulse Strength Normal Pulse Strength [Apical] Normal Respiratory Rate 18 18 Respiratory Effort / Characteristics Non-Labored Spontaneous Non-Labored Spontaneous Respiratory Depth Normal Normal Respiratory Pattern Regular Regular Blood Pressure 149/80 H Blood Pressure [Right Arm] 149/80 H Blood Pressure Mean 103 Blood Pressure Mean [Right Arm] 103 Blood Pressure Position Semi-fowlers Blood Pressure Position [Right Arm] Semi-fowlers Pulse Oximetry 95 96 Oxygen Delivery Method Nasal Cannula Nasal Cannula Oxygen Flow Rate 2 2 Sepsis Recent Fever Within 48 Hours No Sepsis New/Unexplained Change in Mental Status No Sepsis Action Taken by Nursing No Action Required Oxygen Flow Rate - Titration Pulse Oximetry Post Tiitration 06/05/24 07:15 06/05/24 07:23 06/05/24 07:23 Temperature Temperature Source Pulse Rate 91 H Pulse Rate [Apical] Pulse Rate from SpO2 Sensor 90 Pulse Rhythm Pulse Rhythm [Apical] Pulse Strength Pulse Strength [Apical] Respiratory Rate 19 Respiratory Effort / Characteristics Respiratory Depth Respiratory Pattern Blood Pressure 121/82 Blood Pressure [Right Arm] Blood Pressure Mean 96 Blood Pressure Mean [Right Arm] Blood Pressure Position Blood Pressure Position [Right Arm] Pulse Oximetry 89 L 95 Oxygen Delivery Method Room Air Oxygen Flow Rate Sepsis Recent Fever Within 48 Hours Sepsis New/Unexplained Change in Mental Status Sepsis Action Taken by Nursing Oxygen Flow Rate - Titration 2 Pulse Oximetry Post Tiitration 95 06/05/24 07:30 06/05/24 07:38 06/05/24 08:06 Temperature Temperature Source Pulse Rate 89 Pulse Rate [Apical] Pulse Rate from SpO2 Sensor 88 93 H Pulse Rhythm Pulse Rhythm [Apical] Pulse Strength Pulse Strength [Apical] Respiratory Rate 18 Respiratory Effort / Characteristics Respiratory Depth Respiratory Pattern Blood Pressure 138/86 Blood Pressure [Right Arm] Blood Pressure Mean 103 Blood Pressure Mean [Right Arm] Blood Pressure Position Blood Pressure Position [Right Arm] Pulse Oximetry 96 90 Oxygen Delivery Method Oxygen Flow Rate Sepsis Recent Fever Within 48 Hours Sepsis New/Unexplained Change in Mental Status Sepsis Action Taken by Nursing Oxygen Flow Rate - Titration Pulse Oximetry Post Tiitration 06/05/24 08:30 06/05/24 08:30 06/05/24 09:00 Temperature Temperature Source Pulse Rate 81 85 Pulse Rate [Apical] Pulse Rate from SpO2 Sensor 81 84 Pulse Rhythm Pulse Rhythm [Apical] Pulse Strength Pulse Strength [Apical] Respiratory Rate 16 Respiratory Effort / Characteristics Respiratory Depth Respiratory Pattern Blood Pressure 123/77 Blood Pressure [Right Arm] Blood Pressure Mean 91 Blood Pressure Mean [Right Arm] Blood Pressure Position Blood Pressure Position [Right Arm] Pulse Oximetry 95 93 Oxygen Delivery Method Oxygen Flow Rate Sepsis Recent Fever Within 48 Hours Sepsis New/Unexplained Change in Mental Status Sepsis Action Taken by Nursing Oxygen Flow Rate - Titration Pulse Oximetry Post Tiitration 06/05/24 09:01 Temperature Temperature Source Pulse Rate Pulse Rate [Apical] Pulse Rate from SpO2 Sensor Pulse Rhythm Pulse Rhythm [Apical] Pulse Strength Pulse Strength [Apical] Respiratory Rate Respiratory Effort / Characteristics Respiratory Depth Respiratory Pattern Blood Pressure 110/73 Blood Pressure [Right Arm] Blood Pressure Mean 83 Blood Pressure Mean [Right Arm] Blood Pressure Position Blood Pressure Position [Right Arm] Pulse Oximetry Oxygen Delivery Method Oxygen Flow Rate Sepsis Recent Fever Within 48 Hours Sepsis New/Unexplained Change in Mental Status Sepsis Action Taken by Nursing Oxygen Flow Rate - Titration Pulse Oximetry Post Tiitration Laboratory Data 06/05/24 06:10 06/05/24 06:10 Lab Results 06/05/24 06/05/24 Range/Units 06:10 08:07 WBC 5.30 (4.8-10.8) K/ul RBC 4.17 L (4.20-5.40) M/uL Hgb 12.0 (12.0-16.0) g/dl Hct 37.2 (37.0-47.0) % MCV 89.2 (80.0-100.0) fL MCH 28.8 (25.0-34.0) pg MCHC 32.3 (32.0-36.0) g/dL RDW Std Deviation 47.0 H (36.4-46.3) fL RDW Coeff of Luz 14.5 (11.5-14.5) % Plt Count 145 (130-400) K/uL MPV 12.3 (9.4-12.4) fL Immature Gran % (Auto) 1.1 % Neut % (Auto) 76.9 % Lymph % (Auto) 10.8 % [place] % (Auto) 10.4 % Eos % (Auto) 0.6 % Baso % (Auto) 0.2 % Neut # (Auto) 4.08 (1.40-6.50) K/uL Lymph # (Auto) 0.57 L (1.20-3.40) K/uL [place] # (Auto) 0.55 (0.11-0.59) K/uL Eos # (Auto) 0.03 (0.00-0.50) K/uL Baso # (Auto) 0.01 (0.00-0.20) K/uL Immature Gran # (Auto) 0.06 (0.01-0.20) K/uL Sodium 136 (136-145) mmol/L Potassium 4.2 (3.5-5.1) mmol/L Chloride 105 (98-107) mmol/L Carbon Dioxide 28 (21-32) mmol/L Anion Gap 3 (3-11) BUN 10 (6-23) mg/dl Creatinine 0.86 (0.6-1.2) mg/dl Est Cr Clr Drug Dosing 92.2 ml/min eGFR 83.28 BUN/Creatinine Ratio 11.6 (10-20) Glucose 142 H (70-99(Fasting)) mg/dl Calcium 9.3 (8.6-10.3) mg/dl Total Bilirubin 0.5 (0.2-1.0) mg/dl AST 137 H (13-39) U/L ALT 160 H (7-52) U/L Alkaline Phosphatase 74 (34-104) U/L Total Protein 7.0 (6.0-8.3) gm/dl Albumin 4.0 (3.4-5.0) gm/dl Globulin 3.0 (2.5-4.0) gm/dl Albumin/Globulin Ratio 1.3 (0.9-2) HCG, Qual Negative (Negative) Urine Color Yellow Urine Appearance Clear (Clear) Urine pH 5.0 (4.5-7.5) Ur Specific [place] 1.031 H (1.000-1.030) Urine Protein 1+ H (Negative) Urine Glucose (UA) Negative (Negative) Urine Ketones Negative (Negative) Urine Blood Trace H (Negative) Urine Nitrite Negative (Negative) Urine Bilirubin Negative (Negative) Urine Urobilinogen Negative (Negative) Ur Leukocyte Esterase Negative (Negative) Urine WBC (Auto) 0-5 (0-5) /hpf Urine RBC (Auto) 0-2 (0-2) /hpf U Hyaline Cast (Auto) 0-2 (0-2) /lpf U Epithel Cells (Auto) 3-5 H (0-2) /hpf Urine Bacteria (Auto) 1+ H (None Seen) Acetaminophen < 3 L (10-30) ug/ml Administered Medications Discontinued Medications Acetaminophen (Ofirmev) 1,000 mg in 100 mls @ 400 mls/hr IV NOW STA Stop: 06/05/24 06:50 Last Infusion: 06/05/24 07:51 Dose: Infused Documented By: JUAN LUIS Admin: 06/05/24 06:45 Dose: 400 mls/hr Documented By: CARLOS Ioversol (Optiray 320 125ml) 112 ml IV ONCE ONE Stop: 06/05/24 08:12 Last Admin: 06/05/24 08:12 Dose: 112 ml Documented By: MALIK Ketorolac Tromethamine (Ketorolac Tromethamine 15 Mg/Ml Vial) 10 mg IV NOW ONE Stop: 06/05/24 07:56 Last Admin: 06/05/24 08:04 Dose: 10 mg Documented By: JUAN LUIS Lidocaine (Lidocaine 5% 1 Patch) 1 patch TD NOW STA Stop: 06/05/24 07:56 Last Admin: 06/05/24 08:04 Dose: 1 patch Documented By: JUAN LUIS Imaging Data Radiologist's Impression: Lumbar Spine CT 06/05/24 06:37 EXAM: CT lumbar spine wo con CLINICAL HISTORY: Back Pain. TECHNIQUE: CT non-contrast scan of lumbar spine done. Axial images were obtained with reformatted coronal and sagittal images and submitted for interpretation. One of the following dose reduction techniques was utilized for this exam: Automated exposure control, adjustment of the mA and/or kV according to patient size, and use of iterative reconstruction. DLP: 1092.42 mGy-cm, CTDI: 39.6 mGy. COMPARISON: CR dated . FINDINGS: Vertebrae: Straightening of lumbar spine due to muscle spasm. Minimal posterior subluxation of L5 over S1. No fractures, lytic or sclerotic lesions. Normal bone density without evidence of osteopenia or osteoporosis. Intervertebral Discs: Reduced disc height between L5-S1 with tiny earlobe by vacuum phenomena. Spinal Canal and Neural Foramina: Osteophyte?diffuse disc bulge seen at the L5-S1 level indenting the thecal sac with bilateral mild foraminal narrowing with ossification of posterior longitudinal ligament/tiny loose bodies?. No spinal canal stenosis seen. The spinal canal is of normal caliber with no evidence of spinal stenosis. No evidence of nerve root compression. Facet Joints: Bilateral facet joint arthropathy was seen at the level of L5-S1. Soft Tissues: Normal appearance of the paraspinal soft tissues. No abnormal masses, fluid collections, or signs of inflammation. IMPRESSION: 1. No evidence of acute osseous abnormality was seen. 2. Straightening of lumbar spine due to muscle spasm. 3. Grade 1 retrolisthesis L5 over S1. 4. Mild to moderate lumbar degenerative spondylosis. MRI lumbar spine is advised. 5. Comparing the previous x-ray dated 12/01/2021 there is interval progression in the degenerative spondylosis of the lumbar spine. Electronically signed by Nallely Mcnamara 06-05-2024 07:49 AM Chest X-Ray 06/05/24 06:38 EXAM: XR chest 1V portable CLINICAL HISTORY: cough; flu TECHNIQUE: X-ray images of the chest were obtained in posteroanterior (PA) projection. COMPARISON: 06/04/2024 FINDINGS: Pulmonary Parenchyma: Middle lobe collapse is seen with tracheal shift to the right side. Prominent bilateral hilar bronchovascular markings. No pulmonary nodules identified. No evidence of pleural effusion or pleural thickening. Heart and Mediastinum: Prominent aortic arch. Heart size and shape are normal. No mediastinal widening or masses. No hilar or mediastinal lymphadenopathy. Soft Tissues: Soft tissues overlying the chest wall are unremarkable. IMPRESSION: 1. Middle lobe collapse with tracheal shift to the right side. 2. Prominent bilateral hilar bronchovascular markings. 3. No interval changes. Electronically signed by Nallely Mcnamara 06-05-2024 07:50 AM Chest CTA 06/05/24 07:54 CT angio chest PE protocol CT DOSE: 957.61 mGy.cm HISTORY: PE. Unexplained hypoxia TECHNIQUE: Multiple CTA images of the chest were obtained after the intravenous administration of 112 ml Optiray. Coronal and sagittal MIPS were obtained from the axial data set and were submitted for review. All measurements were obtained according to NASCET criteria. A dose lowering technique was utilized adhering to the principles of ALARA. COMPARISON STUDY: 12/01/2021 FINDINGS: There is no definite evidence of pulmonary embolism. There is a 12 mm, focal airspace opacity in the anterior segment of on axial image 57 of series 3. There is a new, 7 mm pleural-based calcification in the anterior right lung base on image 105 and series 4. No additional pulmonary or pleural lesions of significance are identified. The groundglass nodule in previously seen in the left apex is no longer present. The upper airway is unremarkable. There is no significant lymphadenopathy. There is no aortic aneurysm or dissection. There is no pericardial effusion. Heart size is upper limit of normal. There is no pleural effusion or pneumothorax. The upper abdominal images demonstrate hepatomegaly with steatosis and a small hiatal hernia. IMPRESSION: No definite evidence of pulmonary embolus. Small airspace opacity in the anterior segment of the right lower lobe measuring 12 mm. Most likely infectious or inflammatory. Recommend 6 month follow-up chest CT. Newly demonstrated calcified right pleural plaque. ACT 112: Negative or not required by law. The above report was generated using voice recognition software. It may contain grammatical, syntax or spelling errors. Electronically signed by: Ling Ivan M.D. 06/05/2024 8:38 AM Discharge Plan Visit Data Chief Complaint: Back Injury/Pain Stated Complaint: Back Injury/Pain ED Provider: Cris Cho Discharge Problem: Influenza A, Hypoxia, Low back pain, Transaminitis Forms Stand Alone Forms: [facility] [employer] Prescriptions Prescriptions: No Action montelukast 10 mg tablet 10 mg PO QAM PRN (Reason: Allergy Symptoms) Qty: 90 3RF Suflave 178.7-7.3-0.5 gram recon soln See Rx Instructions PO .COMPLEX Qty: 2 0RF Rx Instructions: orally; orally; TAKE FIRST DOSE AT 6 PM AND SECOND DOSE 6 HOURS PRIOR TO PROCEDURE BIN: [id number]: 2000 GROUP: [id number] levothyroxine 125 mcg tablet 125 mcg PO DAILY Qty: 30 3RF (DME) CPAP Supplies Misc See Rx Instructions .Route Qty: 1 5RF Rx Instructions: Masks and tubing for autoPAP x 99 months (DME) Auto Titrating CPAP Misc See Rx Instructions .Route Qty: 1 0RF Rx Instructions: 5-15cm H2O x 99 months benzonatate 200 mg capsule 200 mg PO TID PRN (Reason: cough) Qty: 30 0RF rosuvastatin 5 mg tablet 5 mg PO HS topiramate [Topamax] 25 mg tablet 25 mg PO DAILY Qty: 30 2RF cyclobenzaprine 10 mg tablet 10 mg PO TID PRN (Reason: muscle spasm) Qty: 20 0RF lidocaine [Lidoderm] 5 % adhesive patch,medicated 1 patch topical DAILY Qty: 15 0RF Rx Instructions: leave on most painful area for up to 12 hrs amlodipine 5 mg tablet 5 mg PO DAILY Referrals Referrals: Tima Posada, [Primary Care Provider] -
[2024-06-05] MEDS: ACETAMINOPHEN 1,000 MG/100 ML VIAL IV STA (06:45)
[2024-06-05 06:58] LABS: Basophils # (auto) 0.01 K/uL (0.00-0.20); Basophils % (auto) 0.2 %; Eosinophils # (auto) 0.03 K/uL (0.00-0.50); Eosinophils % (auto) 0.6 %; Hematocrit (blood only) 37.2 % (37.0-47.0); Immature Granulocytes # (auto) 0.06 K/uL (0.01-0.20); Immature Granulocytes % (auto) 1.1 %; Lymphocytes # (auto) 0.57 K/uL (1.20-3.40); Lymphocytes % (auto) 10.8 %; Mean Corpuscular Hemoglobin 28.8 pg (25.0-34.0); Mean Corpuscular Hgb Conc 32.3 g/dL (32.0-36.0); Mean Corpuscular Volume 89.2 fL (80.0-100.0); Mean Platelet Volume 12.3 fL (9.4-12.4); Monocytes # (auto) 0.55 K/uL (0.11-0.59); Monocytes % (auto) 10.4 %; Neutrophils # (auto) 4.08 K/uL (1.40-6.50); Neutrophils % (auto) 76.9 %; Platelet Count 145 K/uL (130-400); RDW Coefficient of Variation 14.5 % (11.5-14.5); Red Blood Count 4.17 M/uL (4.20-5.40)
[2024-06-05 07:17] LABS: Albumin Globulin Ratio 1.3 (0.9-2); BUN Creatinine Ratio 11.6 (10-20); Bilirubin,Total 0.5 mg/dl (0.2-1.0); Calcium 9.3 mg/dl (8.6-10.3); Creatinine Clr Calc Pharmacy 92.2 ml/min; Potassium 4.2 mmol/L (3.5-5.1)
[2024-06-05 07:19] LABS: Pregnancy Test, Serum Negative (Negative)
--- NOTE | 2024-06-05 07:50 | CT Scan Report ---
EXAM: CT lumbar spine wo con CLINICAL HISTORY: Back Pain. TECHNIQUE: CT non-contrast scan of lumbar spine done. Axial images were obtained with reformatted coronal and sagittal images and submitted for interpretation. One of the following dose reduction techniques was utilized for this exam: Automated exposure control, adjustment of the mA and/or kV according to patient size, and use of iterative reconstruction. DLP: 1092.42 mGy-cm, CTDI: 39.6 mGy. COMPARISON: CR dated . FINDINGS: Vertebrae: Straightening of lumbar spine due to muscle spasm. Minimal posterior subluxation of L5 over S1. No fractures, lytic or sclerotic lesions. Normal bone density without evidence of osteopenia or osteoporosis. Intervertebral Discs: Reduced disc height between L5-S1 with tiny earlobe by vacuum phenomena. Spinal Canal and Neural Foramina: Osteophyte?diffuse disc bulge seen at the L5-S1 level indenting the thecal sac with bilateral mild foraminal narrowing with ossification of posterior longitudinal ligament/tiny loose bodies?. No spinal canal stenosis seen. The spinal canal is of normal caliber with no evidence of spinal stenosis. No evidence of nerve root compression. Facet Joints: Bilateral facet joint arthropathy was seen at the level of L5-S1. Soft Tissues: Normal appearance of the paraspinal soft tissues. No abnormal masses, fluid collections, or signs of inflammation. IMPRESSION: 1. No evidence of acute osseous abnormality was seen. 2. Straightening of lumbar spine due to muscle spasm. 3. Grade 1 retrolisthesis L5 over S1. 4. Mild to moderate lumbar degenerative spondylosis. MRI lumbar spine is advised. 5. Comparing the previous x-ray dated 12/01/2021 there is interval progression in the degenerative spondylosis of the lumbar spine. Electronically signed by Nallely Mcnamara 06-05-2024 07:49 AM
--- NOTE | 2024-06-05 07:51 | XRay Report ---
EXAM: XR chest 1V portable CLINICAL HISTORY: cough; flu TECHNIQUE: X-ray images of the chest were obtained in posteroanterior (PA) projection. COMPARISON: 06/04/2024 FINDINGS: Pulmonary Parenchyma: Middle lobe collapse is seen with tracheal shift to the right side. Prominent bilateral hilar bronchovascular markings. No pulmonary nodules identified. No evidence of pleural effusion or pleural thickening. Heart and Mediastinum: Prominent aortic arch. Heart size and shape are normal. No mediastinal widening or masses. No hilar or mediastinal lymphadenopathy. Soft Tissues: Soft tissues overlying the chest wall are unremarkable. IMPRESSION: 1. Middle lobe collapse with tracheal shift to the right side. 2. Prominent bilateral hilar bronchovascular markings. 3. No interval changes. Electronically signed by Nallely Mcnamara 06-05-2024 07:50 AM
[2024-06-05] MEDS: KETOROLAC TROMETHAMINE 15 MG/ML VIAL IV ONE (08:04)
[2024-06-05] MEDS: LIDOCAINE 5% 1 PATCH TD STA (08:04)
[2024-06-05] MEDS: OPTIRAY 320 125ml IV ONE (08:12)
[2024-06-05 08:21] LABS: Appearance Urine Clear (Clear); Bacteria Urine Automated 1+ (None Seen); Bilirubin Urine Negative (Negative); Blood Urine Trace (Negative); Cast Urine Automated 0-2 /lpf (0-2); Color Urine Yellow; Glucose Urine UA Negative (Negative); Ketones Urine Negative (Negative); Leukocyte Esterase Urine Negative (Negative); Nitrite Urine Negative (Negative); Protein Urine 1+ (Negative); RBC Urine Automated 0-2 /hpf (0-2); Specific Gravity Urine 1.031 (1.000-1.030); Urobilinogen Urine Negative (Negative); WBC Urine Automated 0-5 /hpf (0-5)
--- NOTE | 2024-06-05 08:40 | CT Scan Report ---
CT angio chest PE protocol CT DOSE: 957.61 mGy.cm HISTORY: PE. Unexplained hypoxia TECHNIQUE: Multiple CTA images of the chest were obtained after the intravenous administration of 112 ml Optiray. Coronal and sagittal MIPS were obtained from the axial data set and were submitted for review. All measurements were obtained according to NASCET criteria. A dose lowering technique was u tilized adhering to the principles of ALARA. COMPARISON STUDY: 12/01/2021 FINDINGS: There is no definite evidence of pulmonary embolism. There is a 12 mm, focal airspace opaci ty in the anterior segment of on axial image 57 of series 3. There is a new, 7 mm pleural-based calci fication in the anterior right lung base on image 105 and series 4. No additional pulmonary or pleura l lesions of significance are identified. The groundglass nodule in previously seen in the left apex is no longer present. The upper airway is unremarkable. There is no significant lymphadenopathy. There is no aortic aneurys m or dissection. There is no pericardial effusion. Heart size is upper limit of normal. There is no pleural effusion or pneumothorax. The upper abdominal images demonstrate hepatomegaly with steatosis and a small hiatal hernia. IMPRESSION: No definite evidence of pulmonary embolus. Small airspace opacity in the anterior segment of the right lower lobe measuring 12 mm. Most likely infectious or inflammatory. Recommend 6 month f ollow-up chest CT. Newly demonstrated calcified right pleural plaque. ACT 112: Negative or not required by law. The above report was generated using voice recognition software. It may contain grammatical, syntax o r spelling errors. Electronically signed by: Ling Ivan M.D. 06/05/2024 8:38 AM
--- NOTE | 2024-06-05 09:10 | History & Physical Report ---
<Statement entered by Joseline Hamilton MD - 06/05/24 17:15> I have reviewed vital signs, chart notes, labs and imaging. I have personally seen, evaluated and examined the patient. I have also discussed the management of the patient with the JESSE and I agree with the exam findings documented in the history and physical examination and the documented assessment and plan unless otherwise stated below. Faiza appears mildly uncomfortable from her back. On my exam her lungs are clear to auscultation bilaterally with 1 coarse rhonchi sound in left lung there is no wheezing respirations are nonlabored. She is able to sit up and move around in bed. She feels low back pain is ramping up again, bilateral low back without radiation. Does not have chronic back pain. A/P: Influenza A with mild hypoxia - tamiflu, supp O2 History of mild asthma, not on control meds, not in exacerbation Acute low back pain - CT reviewed has some chronic spondylosis but no fracture or LSS, nonradiating and normal LE strength. Mechanical back pain aggravated by flu appears to have muscle spasm -scheduled low dose cyclobenzaprine, scheduled APAP and sched toradol 20 mg IV x 4 doses -heat, lidoderm, encouraged mobility -low dose oxycodone for persistent pain, morphine IV for severe pain Would not pursue further imaging or referral as outpatient if she is again asymptomatic wrt her back after flare resolves. Follow up with primary care. Date of Service June 05, 2024 Assessment & Plan (1) Hypoxia: (2) Influenza A: (3) Low back pain: (4) Transaminitis: (5) Tobacco use: (6) Asymptomatic bacteriuria: Plan Patient is a 48-year-old female with past medical history of asthma, RAUDEL, obesity fatty liver disease, GERD, hypertension, hypothyroidism, bipolar disorder, tobacco abuse. She was evaluated in the ER 06/04 and discharged home with a diagnosis of influenza A. She returned to the ER 06/05 due to worsening low back pain, bilateral knee numbness, and flulike symptoms. She is being admitted for hypoxia due to her oxygen dropping to 89% on room air. #Hypoxia/influenza A 89% RA -> 2L NC CXR read as middle lobe collapse with tracheal shift to right side, prominent bilateral hilar bronchovascular markings Chest CTA no evidence of pneumothorax, small airspace opacity in anterior segment right LL (infectious/inflammatory, recommend 6-month follow-up) influenza A positive on bio fire 06/05 Febrile 06/04 38.3C, afebrile on admission Incentive spirometry Pro-Han ordered NSS at 80 mL/hour x 1 bag and promote oral hydration Tamiflu ordered Tylenol, Mucinex, and Tessalon Perles as needed oxygen as needed for O2 <94% - wean oxygen as tolerated #back pain Back pain with bilateral knee numbness since 06/[address] showed straightening of lumbar spine due to millimeter spasm, grade 1 retrolisthesis L5/S1, mild/mod lumbar degenerative spondylosis low concern for cauda equina syndrome - no incontinence, no saddle anesthesia Lidoderm patch, Tylenol as needed, Toradol as needed continue home Cyclobenzaprine as needed for muscle spasms consider ortho-spine referral on discharge with possible MRI #transaminitis History of obesity fatty liver seen on CT 02/16/2023 Suspect 05/19 influenza A AST 137, ALT 160 Acetaminophen level negative denies history of alcohol use Trend CMP, chronically elevated could consider hepatitis panel #tobacco abuse 1 pack/day x 20 years Has not smoked in roughly 2 days, interested in quitting Smoking cessation education ordered #Asymptomatic bacteriuria UA 06/04 shows trace ketones, 1+ leukocyte esterase, 11-20 WBC, 3-5 hyaline cast, >20 epithelial cells, 3+ bacteria UA 06/05 shows elevated specific gravity, 1+ protein, trace blood, 3-5 epithelial cells, 1+ bacteria both appear contaminated with epithelial cells Patient denies urinary symptoms defer need for ABX treatment at this time Follow urine cultures Chronic stable diagnoses: RAUDEL patient reports improved, no CPAP at bedtime Asthma continue montelukast as needed Hypothyroidism continue levothyroxine HLD continue rosuvastatin HTN patient no longer takes amlodipine, monitor VTE ppx: SCDs, low risk Diet: regular Dispo: med surg with continuous pulse ox Admission and Anticipated Discharge Date Admission Date: 06/05/24 History of Present Illness Chief Complaint: back injury/pain Primary Care Provider: Tima Poasda DO Patient is a 48-year-old female with past medical history of asthma, RAUDEL, obesity fatty liver disease, GERD, hypertension, hypothyroidism, bipolar disorder, tobacco abuse. She was evaluated in the ER 06/05 and discharged home with a diagnosis of influenza A. She returned to the ER 06/05 due to worsening low back pain, bilateral knee numbness, and flulike symptoms. She is being admitted for hypoxia due to her oxygen dropping to 89% on room air. Patient seen at bedside. She stated that she had back pain and came to the ER yesterday which improved. Today she woke up and it was much worse and she has numbness of bilateral knees. She denies incontinence, difficulty ambulating. Her back pain is slightly improved with Tylenol, Toradol, and Lidoderm patch in ED. She also endorses flulike symptoms of rhinorrhea, sore throat, cough, green sputum production, fever, and dyspnea for 3 days. She denies any dizziness, chest pain, vomiting, diarrhea, dysuria, difficulty urinating, hematuria. She does not use oxygen at baseline. She smokes roughly 1 pack/day for the past 20 years; however has not smoked in 2 days and desires to quit. She denies chronic alcohol use. She denies past history of DM or previous VTE. She has not taken her home medications in roughly 2 days. She wishes to be full code. Noted that patient was 89% RA per EMS, improved to 96% on 4L NC. In ED 89% on RA improved on 2L NC. Allergies Allergy/AdvReac Type Severity Reaction Status Date / Time cat dander Allergy Intermediate congestion Verified 06/03/24 09:02 dog dander Allergy Intermediate congestion Verified 06/03/24 09:02 Penicillins Allergy Mild hives Verified 06/03/24 09:02 acetaminophen [From Tylenol] AdvReac Intermediate Gastrointestinal Verified 06/03/24 09:02 Upset ibuprofen AdvReac Intermediate Gastrointestinal Verified 06/03/24 09:02 Upset cephalexin AdvReac Mild upset Verified 06/03/24 09:02 stomach Home Medications Medication Instructions Recorded Confirmed Type Auto Titrating CPAP #1 ea 05/31/23 06/04/24 Rx CPAP Supplies #1 ea 05/31/23 06/04/24 Rx cyclobenzaprine 10 mg tablet 10 mg PO TID PRN muscle spasm #20 11/11/23 06/05/24 Rx tabs lidocaine 5 % topical patch 1 patch topical DAILY #15 ea 11/11/23 06/05/24 Rx (Lidoderm) rosuvastatin 5 mg tablet 0 mg PO HS 01/18/24 06/05/24 History montelukast 10 mg tablet 10 mg PO QAM PRN Allergy Symptoms 05/06/24 06/05/24 Rx #90 tabs benzonatate 200 mg capsule 200 mg PO TID PRN cough #30 caps 05/13/24 06/05/24 Rx peg 3350-sod sulf,[id number] See Rx Instructions PO .COMPLEX #2 05/17/24 06/05/24 Rx 178.7-7.3-0.5-1.12-0.9 gram oral mL soln (Suflave) levothyroxine 125 mcg tablet 125 mcg PO DAILY #30 tabs 05/30/24 06/05/24 Rx Past Med/Surg History Problem List (Updated 06/05/24 @ 10:33 by Duy Sumner) Asymptomatic bacteriuria Transaminitis (Acute) Low back pain (Acute) Hypoxia (Acute) Influenza A (Acute) Influenza A (Acute) Dietary counseling and surveillance Abnormal weight gain Obesity Obese abdomen Osteoarthritis of both knees Fatty infiltration of liver Mixed hyperlipidemia Metabolic syndrome Incontinence in female Prediabetes Pulmonary nodule, left CT chest 05/2021, 11/2021, 11/2022 - next due 2024 for final 2 year study. Tobacco use Asthma stable Osteoarthritis Obesity, Class III, BMI 40-49.9 (morbid obesity) Obstructive sleep apnea, adult + snoring, diagnosed with "mild" RAUDEL, considering repeat sleep study/no device prescribed based on initial sleep study per patient Hypothyroidism GERD without esophagitis controlled Bipolar affective disorder, current episode manic no meds Allergic rhinitis Medical History TMJ (dislocation of temporomandibular joint) Non compliance w medication regimen Chondromalacia of knee Gastritis Surgical History History of esophagogastroduodenoscopy (EGD) History of robot-assisted laparoscopic hysterectomy with bilateral salphingectomy: 01/02/17: Grade view 1, MAC#3, ETT 7.5 at [facility] History of section x2 History of bilateral tubal ligation Status post right foot surgery History of wisdom tooth extraction History of tonsillectomy and adenoidectomy History of lumbar discectomy History of cholecystectomy Family History Unknown Cancer Mother Breast cancer LVAD (left ventricular assist device) present Cancer Myocardial infarction Father Gout Hypertension Son ADHD (attention deficit hyperactivity disorder) Other No family history of adverse response to anesthesia Denies family history of Ovarian cancer Prostate cancer Lung cancer Colorectal cancer Stroke Social History Smoking Status: Current every day smoker Tobacco Type: Cigarettes Age Started Using Tobacco: 18; packs per day: 1; Cigarettes Per Day: 1 pack per day but hasn't had any for 2 days. 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 Non-toxic appearing. HEENT- EOMI, mucous membranes moist. Hearing grossly intact. Heart-normal S1 and S2. No murmurs, rubs or gallops. Lungs- decreased bilaterally, no respiratory distress, no accessory muscle use. Abdomen-normal bowel sounds and soft. No ascites noted. Non-tender. Extremities- no clubbing, cyanosis, or edema. Rheumatologic-normal range of motion. Psychiatric-normal affect. Musculoskeletal: no cyanosis or clubbing, extremities motor strength 5/[address] straight leg test WNL, no pain Neurologic: Motor/Sensory: no sensory deficit Results & Data Results & Data Vital Signs (Past 12 Hours) Vital Signs Temp Pulse Pulse Resp BP BP Pulse Ox 06/05/24 07:23 89 L 06/05/24 07:15 121/82 06/05/24 06:08 101 H 06/05/24 05:52 37.2 C 98 H 18 149/80 H 96 06/05/24 05:52 37.2 C 98 H 18 149/80 H 95 O2 Del Method O2 Flow Rate 06/05/24 07:23 Room Air 06/05/24 07:15 06/05/24 06:08 06/05/24 05:52 Nasal Cannula 2 06/05/24 05:52 Nasal Cannula 2 Laboratory Results reviewed CBC, CMP, hCG, UA Diagnostic Findings reviewed CXR, chest CTA, lumbar spine CT Medications Administered EDLidoderm patch, IV Tylenol 1000 Mg, Toradol 10 Mg AdmissionTamiflu 75 Mg p.o., Flexeril 10 Mg p.o. 3 times daily as needed, NSS at 80 mL/hour ECG Additional Comments: NSR rate 76 QTc 409 Code Status & VTE Plan Code Status full code VTE Prophylaxis Plan VTE Prophylaxis will be ordered: Yes PG Care Time/CCT Total # of Minutes Spent Total Time Spent with Patient: Total time spent is greater than 50% in coordination of care (as documented) at patient's floor/unit and/or counseling patient: Coding Level of Care Code 67137 INT INP/OBS CARE 375MIN Diagnoses Hypoxia R09.02 Influenza A J10.1 Low back pain M54.50 Transaminitis R74.01 Tobacco use Z72.0 Asymptomatic bacteriuria R82.71
[2024-06-05] MEDS ORDERED: CYCLOBENZAPRINE HCL 10 MG TAB PO PRN (09:24)
[2024-06-05] MEDS: SODIUM CHLORIDE 0.9% 1,000 ML IV SCH (09:42)
[2024-06-05] MEDS: OSELTAMIVIR PHOSPHATE 75 MG CAP PO STA (09:42)
[2024-06-05] MEDS ORDERED: DOCUSATE SODIUM 100 MG CAP PO PRN (10:35)
[2024-06-05] MEDS ORDERED: MELATONIN 3 MG TAB PO PRN (10:35)
[2024-06-05] MEDS ORDERED: MONTELUKAST SODIUM 10 MG TABLET PO PRN (10:35)
[2024-06-05 10:58] LABS: Magnesium 1.9 mg/dl (1.7-2.4)
[2024-06-05 11:05] LABS: Troponin I High Sensitivity 5.6 pg/ml (0-14)
--- NOTE | 2024-06-05 11:57 | Electrocardiogram Report ---
Test Reason : Blood Pressure : */* mmHG Vent. Rate : 76 BPM Atrial Rate : 76 BPM P-R Int : 136 ms QRS Dur : 82 ms QT Int : 364 ms P-R-T Axes : 22 33 17 degrees QTcB Int : 409 ms Normal sinus rhythm Normal ECG When compared with ECG of 09-May-2024 10:19, No significant change was found Confirmed by Ward Montelongo ([id number]) on 06/05/2024 11:57:15 AM Referred By: REFERRED SELF Confirmed By: Ward Montelongo
[2024-06-05 12:36] VITALS: RESP 16
[2024-06-05] MEDS ORDERED: KETOROLAC TROMETHAMINE 15 MG/ML VIAL IV PRN (14:00)
[2024-06-05] MEDS: ACETAMINOPHEN 325 MG TAB PO PRN (14:03)
[2024-06-05] MEDS: LEVOTHYROXINE SODIUM 125 MCG TABLET PO SCH (14:04)
[2024-06-05] MEDS ORDERED: MoRPHine SULFATE 2 MG/ML CARP IV PRN (15:16)
[2024-06-05] MEDS ORDERED: oxyCODONE HCL IR 5 MG TAB (IMMEDIATE RELEASE) PO PRN (15:16)
[2024-06-05] MEDS ORDERED: ACETAMINOPHEN 325 MG TAB PO PRN (15:19)
[2024-06-05] MEDS: KETOROLAC TROMETHAMINE 15 MG/ML VIAL IV SCH (15:28)
[2024-06-05] MEDS: CYCLOBENZAPRINE HCL 5 MG TAB PO SCH (16:35)
[2024-06-05] MEDS: BENZONATATE 100 MG CAPSULE PO PRN (16:39)
[2024-06-05] MEDS: ONDANSETRON INJ 2 MG/ML 2 ML VIAL IV PRN (18:36)
[2024-06-05] MEDS: guaiFENesin 600 MG TABCR PO SCH (21:02)
[2024-06-05] MEDS: OSELTAMIVIR PHOSPHATE 75 MG CAP PO SCH (21:03)
[2024-06-05] MEDS: ROSUVASTATIN CALCIUM 5 MG TAB PO SCH (21:03)
[2024-06-06 06:41] LABS: Basophils # (auto) 0.02 K/uL (0.00-0.20); Basophils % (auto) 0.5 %; Eosinophils # (auto) 0.12 K/uL (0.00-0.50); Eosinophils % (auto) 2.9 %; Hematocrit (blood only) 36.9 % (37.0-47.0); Immature Granulocytes # (auto) 0.03 K/uL (0.01-0.20); Immature Granulocytes % (auto) 0.7 %; Lymphocytes # (auto) 1.34 K/uL (1.20-3.40); Lymphocytes % (auto) 32.3 %; Mean Corpuscular Hemoglobin 29.4 pg (25.0-34.0); Mean Corpuscular Hgb Conc 32.5 g/dL (32.0-36.0); Mean Corpuscular Volume 90.4 fL (80.0-100.0); Mean Platelet Volume 12.3 fL (9.4-12.4); Monocytes # (auto) 0.61 K/uL (0.11-0.59); Monocytes % (auto) 14.7 %; Neutrophils # (auto) 2.03 K/uL (1.40-6.50); Neutrophils % (auto) 48.9 %; Platelet Count 127 K/uL (130-400); RDW Coefficient of Variation 14.6 % (11.5-14.5); RDW Standard Deviation 48.8 fL (36.4-46.3); Red Blood Count 4.08 M/uL (4.20-5.40); White Blood Count 4.15 K/ul (4.8-10.8)
[2024-06-06 06:55] LABS: Albumin Globulin Ratio 1.3 (0.9-2); Albumin Level 3.6 gm/dl (3.4-5.0); BUN Creatinine Ratio 21.1 (10-20); Bilirubin,Total 0.4 mg/dl (0.2-1.0); Calcium 9.6 mg/dl (8.6-10.3); Creatinine Clr Calc Pharmacy 104.4 ml/min; Globulin 2.7 gm/dl (2.5-4.0); Magnesium 1.8 mg/dl (1.7-2.4); Potassium 4.3 mmol/L (3.5-5.1); Total Protein 6.3 gm/dl (6.0-8.3)
[2024-06-06] MEDS: LIDOCAINE 5% 1 PATCH TD SCH (07:44)
[2024-06-06 07:53] VITALS: BP 120/81; TEMP 98.1
[2024-06-06] MEDS: CYCLOBENZAPRINE HCL 5 MG TAB PO PRN (10:15)
[2024-06-06] MEDS: predniSONE 20 MG TAB PO ONE (10:46)
[2024-06-06] MEDS: METHOCARBAMOL 750 MG TABLET PO ONE (10:46)
[2024-06-06] MEDS: oxyCODONE HCL IR 5 MG TAB (IMMEDIATE RELEASE) PO STA (10:46)
[2024-06-06 11:52] VITALS: O2SAT 94
[2024-06-06 11:58] VITALS: PULSE 84
--- NOTE | 2024-06-06 19:05 | Discharge Summary ---
Discharge Summary Date of Service June 06, 2024 Principal Dx & Hospital Course #1 = Principal Diagnosis (1) Hypoxia: (2) Influenza A: (3) Low back pain: (4) Transaminitis: (5) Tobacco use: (6) Asymptomatic bacteriuria: Plan Patient is a 48-year-old female with past medical history of asthma, RAUDEL, obesity fatty liver disease, GERD, hypertension, hypothyroidism, bipolar disorder, tobacco abuse. She was evaluated in the ER 06/04 and discharged home with a diagnosis of influenza A. She returned to the ER 06/05 due to worsening low back pain, bilateral knee numbness, and flulike symptoms. She was admitted for hypoxia due to her oxygen dropping to 89% on room air. # influenza A and mild exacerbation of asthma, mild hypoxia - treated with oseltamivir, supportive care - short course of oral prednisone and as needed albuterol for asthma. she does have an albuterol MDI at home. continue montelukast. She is not on any controller inhalers because asthma has been mild - hypoxia had resolved by the time she came up to the medical unit last night, suspect there had been some splinting related to her acute back pain which improved # acute low back pain, started 06/04, denies chronic back pain lumbar spine CT showed straightening of lumbar spine due to millimeter spasm, grade 1 retrolisthesis L5/S1, mild/mod lumbar degenerative spondylosis - pain was controlled with Toradol, heat/ice, acetaminophen, muscle relaxers. she still had some significant pain this morning after these medications so I changed her muscle relaxant to methocarbamol gave her a small supply of low-dose oxycodone for as needed use over the next 3 days - advised maintaining her mobility is much as possible - if acute flare resolves and she is pain-free thereafter she should not necessarily need any further imaging - follow-up in primary care # mild increase in AST, ALT related to influenza on top of hepatic steatosis - AST and ALT improved to 55/97 today, bilirubin is normal alkaline phosphatase is normal denies history of alcohol use and acetaminophen level was negative in the ED #tobacco abuse 1 pack/day x 20 years Has not smoked in roughly 2 days, interested in quitting Smoking cessation education provided #Asymptomatic bacteriuria serial contaminated urinalyses with multiple skin sarai organisms on urine culture, asymptomatic does not require treatment Chronic stable diagnoses: RAUDEL patient reports improved, no CPAP at bedtime Hypothyroidism continue levothyroxine HLD continue rosuvastatin HTN patient no longer takes amlodipine, monitor morbid obesity with BMI of 43 Admission HPI Per Admitting Provider Patient is a 48-year-old female with past medical history of asthma, RAUDEL, obesity fatty liver disease, GERD, hypertension, hypothyroidism, bipolar disorder, tobacco abuse. She was evaluated in the ER 06/05 and discharged home with a diagnosis of influenza A. She returned to the ER 06/05 due to worsening low back pain, bilateral knee numbness, and flulike symptoms. She is being admitted for hypoxia due to her oxygen dropping to 89% on room air. Patient seen at bedside. She stated that she had back pain and came to the ER yesterday which improved. Today she woke up and it was much worse and she has numbness of bilateral knees. She denies incontinence, difficulty ambulating. Her back pain is slightly improved with Tylenol, Toradol, and Lidoderm patch in ED. She also endorses flulike symptoms of rhinorrhea, sore throat, cough, green sputum production, fever, and dyspnea for 3 days. She denies any dizziness, chest pain, vomiting, diarrhea, dysuria, difficulty urinating, hematuria. She does not use oxygen at baseline. She smokes roughly 1 pack/day for the past 20 years; however has not smoked in 2 days and desires to quit. She denies chronic alcohol use. She denies past history of DM or previous VTE. She has not taken her home medications in roughly 2 days. She wishes to be full code. Noted that patient was 89% RA per EMS, improved to 96% on 4L NC. In ED 89% on RA improved on 2L NC. Discharge Plan Discharge Items Patient Disposition: Home - Self-Care Reason For Visit: HYPOXIA, INFLU A, BACK PAIN Discharge Diagnosis: Influenza A, acute low back pain Activity: Resume your previous activity Weightbearing: Full weightbearing Non-emergency contact: Primary Care Provider Call non-emergency contact if: you have any medication questions and your symptoms worsen Follow-up/Referrals: Tima Posada DO [Primary Care Provider] - 06/13/24 9:30 am Diet: Regular Addtl Attending Provider Instructions: For influenza -finish the course of tamiflu -I recommend taking acetaminophen around the clock until flu and back pain symptoms improve - probably for a week or two -You can also take naproxen or ibuprofen as directed for pain or fever for up to 2 weeks - try not to take too much of these because they can cause stomach irritation -look for some cough syrup with dextromethorphan/guaifenesin only (many have acetaminophen as well but you don't want to double dose acetaminophen) -prednisone x 5 days for some wheezing / mild asthma exacerbation. This may also help with the back pain -use your albuterol inhaler as needed for wheezing or shortness of breath For low back pain -you have some arthritis in your back, but no fracture. It looks like muscle spasm aggravated by the flu -take analgesics as above -heat/ice may be helpful -I prescribed muscle relaxer -oxycodone as needed for next three days, if the above treatments are not enough -keep moving - walk and get up in a chair regularly. Bedrest usually makes acute back pain worse Follow up in primary care within 1-2 weeks It was a pleasure taking care of you in the hospital Joseline Hamilton MD Pending Studies at Discharge: No Stand-Alone Forms: My [facility] [employer]Lounge, Pain - Opioid Pain Management, Work/School Release, Smoking Cessation Medications and DC Order Prescriptions: New oseltamivir [Tamiflu] 75 mg Capsule 75 mg PO BID Qty: 7 0RF acetaminophen 325 mg Tablet 650 mg PO Q6H Qty: 0 0RF Rx Instructions: buy over the counter oxycodone 5 mg Tablet 5 mg PO Q4H PRN (Reason: pain) Qty: 12 0RF prednisone 20 mg tablet 20 mg PO DAILY Qty: 5 0RF methocarbamol 750 mg tablet 750 mg PO TID PRN (Reason: muscle spasm) Qty: 30 0RF Continued montelukast 10 mg tablet 10 mg PO QAM PRN (Reason: Allergy Symptoms) Qty: 90 3RF Suflave 178.7-7.3-0.5 gram recon soln See Rx Instructions PO .COMPLEX Qty: 2 0RF Rx Instructions: orally; orally; TAKE FIRST DOSE AT 6 PM AND SECOND DOSE 6 HOURS PRIOR TO PROCEDURE BIN: [id number] PCN: [id number] GROUP: [id number] levothyroxine 125 mcg tablet 125 mcg PO DAILY Qty: 30 3RF (DME) CPAP Supplies Misc See Rx Instructions .Route Qty: 1 5RF Rx Instructions: Masks and tubing for autoPAP x 99 months (DME) Auto Titrating CPAP Misc See Rx Instructions .Route Qty: 1 0RF Rx Instructions: 5-15cm H2O x 99 months benzonatate 200 mg capsule 200 mg PO TID PRN (Reason: cough) Qty: 30 0RF rosuvastatin 5 mg tablet 0 mg PO HS Rx Instructions: Last filled 01/2024. Original Directions: 5mg by mouth daily lidocaine [Lidoderm] 5 % adhesive patch,medicated 1 patch topical DAILY Qty: 15 0RF Rx Instructions: leave on most painful area for up to 12 hrs Discontinued cyclobenzaprine 10 mg tablet 10 mg PO TID PRN (Reason: muscle spasm) Qty: 20 0RF Discharge Orders: Discharge Order (Routine); Ordered 06/06/24 Ordered By: Joseline Rosas/Other Patient Handouts: The Flu (Influenza) Admission Data Admit Date/Time: 06/05/24 09:32 Attending Provider: Joseline Hamilton Admit Provider: Joseline Hamilton Primary Care Provider: Tima Posada Other Providers: Joseline Hamilton Other Interventions: Discharge Summary Assessment (RN) Last Done: 06/06/24 11:57 Hospital Stay Data Consultations 06/05/24 08:59 ED Decision to Admit Stat Diagnostic Imagining Performed 06/05/24 06:37 CT lumbar spine wo con Stat 06/05/24 07:54 CT for pulmonary embolism PE [CT angio chest PE protocol] Stat Pending Results Patient Have Any Pending Studies at Discharge: No Discharge Instructions Given to Patient (Per Discharging Provider) For influenza -finish the course of tamiflu -I recommend taking acetaminophen around the clock until flu and back pain symptoms improve - probably for a week or two -You can also take naproxen or ibuprofen as directed for pain or fever for up to 2 weeks - try not to take too much of these because they can cause stomach irritation -look for some cough syrup with dextromethorphan/guaifenesin only (many have acetaminophen as well but you don't want to double dose acetaminophen) -prednisone x 5 days for some wheezing / mild asthma exacerbation. This may also help with the back pain -use your albuterol inhaler as needed for wheezing or shortness of breath For low back pain -you have some arthritis in your back, but no fracture. It looks like muscle spasm aggravated by the flu -take analgesics as above -heat/ice may be helpful -I prescribed muscle relaxer -oxycodone as needed for next three days, if the above treatments are not enough -keep moving - walk and get up in a chair regularly. Bedrest usually makes acute back pain worse Follow up in primary care within 1-2 weeks It was a pleasure taking care of you in the hospital Joseline Hamilton MD Total Time Total Time Spent Total Time Spent (In Minutes): <30 Coding Level of Care Code 24902 IN/OBS DISCH 30 MIN/LESS Diagnoses Hypoxia R09.02 Influenza A J10.1 Low back pain M54.50 Transaminitis R74.01 Tobacco use Z72.0 Asymptomatic bacteriuria R82.71
== END 2024-06-06 14:09 | disposition home or self-care (01) | DRG 194 ==
LOC: ED 05:56 → EDINP 09:32 → 3E 10:36
DX: J10.1 Influenza due to other identified influenza virus with other respiratory manifestations; M54.50 Low back pain, unspecified; Z88.6 Allergy status to analgesic agent; I10 Essential (primary) hypertension; F17.210 Nicotine dependence, cigarettes, uncomplicated; Z88.1 Allergy status to other antibiotic agents; Z79.890 Hormone replacement therapy; Z68.41 Body mass index [BMI] 40.0-44.9, adult; Z79.899 Other long term (current) drug therapy; E03.9 Hypothyroidism, unspecified; J45.909 Unspecified asthma, uncomplicated; E66.01 Morbid (severe) obesity due to excess calories; R82.71 Bacteriuria; E78.2 Mixed hyperlipidemia; Z91.048 Other nonmedicinal substance allergy status; Z88.0 Allergy status to penicillin